=== PATIENT | female | born 1940 | race Caucasian/White ===

== ENCOUNTER → 2016-05-03 | Outpatient (CLI) | payer MEDICARE, BC ==
[~2016-05-03] MED LIST: ALPR-240 PO; HYDR-4078 PO; HYDR25TA PO; METO25TA6 PO; ONDA4TAB7 PO; PANT40TA32 PO; PRAM0.122 PO; SALINE FLUSH 10ml SYRINGE ONE; SINCALIDE 5 MCG/VIAL IJ ONE; SODIUM CHLORIDE (Bacteriostatic) 30ml VIAL ONE; TEMA15CA5 PO; TIZA4TAB4 PO; TRAZ-173 PO
--- NOTE | 2016-05-03 13:05 | DI ---
EXAM: [place]OB[place] [facility] [place]ORY: ITS.REASON: R11.10 VOMITING; R10.819 ABD TENDERNESS COMPARISON: None available. TECHNIQUE: After administration of approximately 6.6 mCi Tc99m Choletec, sequential anterior images of the abdomen were obtained. After visualization of the gallbladder, a region of interest was drawn around the gallbladder and approximately 1.5 mcg CCK was administered with sequential anterior images of the abdomen obtained. A time-activity curve was plotted and a gallbladder ejection fraction was calculated. Normal ejection fractions are estimated to be approximately greater than 35%. FINDINGS: The gallbladder is visualized within 10 minutes, and thus, there is no evidence for cystic duct obstruction. The small bowel is also visualized, and thus, no evidence for common bile duct obstruction is identified. The gall bladder ejection fraction is 92%, which is normal. IMPRESSION: 1. No evidence for cystic duct or CBD obstruction. 2. The gallbladder ejection fraction is 92%, which is normal. .
--- NOTE | 2016-05-03 17:13 | DI ---
EXAM: US GALLBLADDER LOCATION OF DICTATION: [facility] [place] COMPARISON: None available. HISTORY: ITS.REASON: R11.10 VOMITING; R10.819 ABD TENDERNESS right upper quadrant pain for 10 months. Nausea. Weight loss. Weakness. FINDINGS: PANCREAS: Not well visualized due to overlying bowel gas. AORTA/IVC: Unremarkable. No evidence for aneurysm. LIVER: Unremarkable. Normal in echotexture, size, and appearance. No intrahepatic ductal dilatation. No lesions are seen. The main portal vein has normal color Doppler flow and direction.14.7 cm in length. GALLBLADDER: Unremarkable. No evidence for gallstones, gallbladder wall thickening, or pericholecystic fluid. CBD: Unremarkable. Normal in caliber. No intra or extrahepatic ductal dilatation. Normal for age. 3.6 mm. RIGHT KIDNEY: Unremarkable. Normal in echotexture, size, appearance, and color Doppler flow without hydronephrosis. 10.3 x 3.8 x 4.3 cm. COMMENTS: None. IMPRESSION: Unremarkable exam without evidence for cholelithiasis or other signs of acute or chronic cholecystitis. .
== END ==
LOC: IMA 07:24
PROVIDERS: ATTEND Family Medicine
DX: R11.10 Vomiting, unspecified (principal); R10.819 Abdominal tenderness, unspecified site
CPT/HCPCS: 76705; 78227; A9537; J2805

== ENCOUNTER 2016-06-24 21:37 | Emergency (ER) | payer MEDICARE, BC ==
[~2016-06-24] VITALS: Ht 162.6 cm; Wt 77.5 kg
[2016-06-24 21:37] VITALS: Ht 162.6 cm; Wt 77.5 kg
[~2016-06-24 21:37] MED LIST changes: -SALINE FLUSH 10ml SYRINGE ONE; -SINCALIDE 5 MCG/VIAL IJ ONE; -SODIUM CHLORIDE (Bacteriostatic) 30ml VIAL ONE
--- OUTSIDE RECORDS SUMMARY | 2016-06-24 21:41 | XMS REPORT | Continuity of Care Document ---
Author Author [facility] Organization [facility] Address Unknown Phone Unavailable Support Name Relationship Address Phone AMNA MANJARREZ MD Caregiver [address] [place] [address] Unavailable JANIS RODRIGUEZ DO Caregiver [address] [place] [address] Unavailable CYNDI ARIAS Next Of Kin [address] [place] [address] C Insurance Providers Guarantor Stella Diaz Address [address] [place] [address] Email DENIED/NO TO PT [facility] Policy Number [id number] Subscriber's Name Stella Diaz Relationship 18 Self Group Number [id number] Effective Date 08 Payer Medicare Policy Number [id number] Subscriber's Name Stella Diaz Relationship 18 Self Effective Date 06 Advance Directives Directive Response Recorded Date/Time Advanced Directives Type None 01/10/16 11:20am Chief Complaint and Reason for Visit Chief Complaint Nausea,Vomiting,Diarrhea Reason for Visit Nausea Dehydration Problems Active Problems Medical Problem Onset Date Status Altered mental status 02/27/2014 Acute Confusion Unknown Acute Hypotension Unknown Acute Minor head injury without loss of consciousness Unknown Acute Minor head injury without loss of consciousness Unknown Acute Non-cardiac chest pain Unknown Acute Renal insufficiency Unknown Acute Scalp laceration Unknown Acute Weakness Unknown Acute Past Problems Medical Problem Onset Date Dehydration Unknown Dehydration Unknown Gastroenteritis Unknown Nausea Unknown Volume depletion Unknown Medications Current Home Medications Medication Dose Units Route Directions Days Qty Instructions Start Date Alprazolam 0.25 Mg Tablet 0.25 Mg Oral Three Times A Day as needed for Anxiety 04/03/12 Hydrochlorothiazide 25 Mg Tablet 25 Mg Oral Give With Breakfast 07/20/15 Hydrocodone/Acetaminophen (Melvin 10-325 Tablet) 1 Each Tablet 1 Tab Oral Four Times Daily as needed for Pain 07/20/15 Metoprolol Tartrate 25 Mg Tablet 50 Mg Oral Every Morning Metoprolol Tartrate 25 Mg Tablet 25 Mg Oral Bedtime Take 1 tab, by mouth, one time a day (with breakfast). 01/10/16 Ondansetron (Zofran Odt) 4 Mg Tab.rapdis 4 Mg Oral Q6h/0300,0900,1500,2100 for Nausea 30 Tablet Oral disintegrating tablet 01/10/16 Pantoprazole Sodium (Protonix) 40 Mg Tablet.dr 40 Mg Oral Daily 04/03/12 Pramipexole Di-Hcl (Mirapex) 0.125 Mg Tablet 0.25-0.375 Mg Oral Bedtime 05/17/15 Temazepam (Restoril) 15 Mg Capsule 15-30 Mg Oral Bedtime 07/20/15 Tizanidine Hcl 4 Mg Tablet 4 Mg Oral Four Times Daily as needed for Muscle Spasm 11/24/13 Trazodone Hcl 100 Mg Tablet 100 Mg Oral Bedtime 06/03/14 Past Home Medications Medication Directions Ordered Status Amitriptyline Hcl 100 Mg Tablet, 100 Mg Oral Bedtime 12/24/10 Discontinued Amitriptyline Hcl 25 Mg Tablet, 25 Mg Oral As Needed 12/24/10 Discontinued Amitriptyline Hcl 25 Mg Tablet, 25 Mg Oral Four Times Daily 10/14/10 Discontinued Butalb/Acetaminophen/Caffeine (Fioricet 50/325/40) 1 Tab Tablet, 1 Tab Oral As Needed 12/24/10 Discontinued Calcium Carbonate/Vitamin D3 (Calcium + D 600 Mg Tablet) 1 Tab Tablet, 2 Tab Oral Daily 12/24/10 Discontinued Cyclobenzaprine Hcl 10 Mg Tablet, 10 Mg Oral Three Times A Day 12/24/10 Discontinued Cyclobenzaprine Hcl (Flexeril) 10 Mg Tablet, 10 Mg Oral Three Times A Day 14/01 Discontinued Doxepin Hcl 150 Mg Capsule, 150 Mg Oral Daily 10/30/10 Discontinued Doxepin Hcl 150 Mg Capsule, 150 Mg Oral Daily 09/21/09 Discontinued Felctor Pain Patch , 1 Patch Transderm Twice A Day 12/24/10 Discontinued Fish Oil/[place]-3 Fatty Acids (Fish Oil 1,000 Mg Capsule) 1 Cap Capsule, 2 Cap Oral Daily 12/24/10 Discontinued Fluoxetine Hcl (Prozac) 40 Mg Capsule, 40 Mg Oral Daily 04/03/12 Discontinued Fluoxetine Hcl (Prozac) 40 Mg Capsule, 40 Mg Oral Daily 12/20/11 Discontinued Fluoxetine Hcl (Prozac) 40 Mg Capsule, 40 Mg Oral Daily 09/21/09 Discontinued Fluoxetine Hcl (Prozac) 40 Mg Capsule, 40 Mg Oral Daily 10/30/10 Discontinued Fluticasone Propionate (Fluticasone Prop 50 Mcg/Actuation Nasal [place]) 120 [place]/16 G [place], 2 SprayNasal Daily 11/24/13 Discontinued Gabapentin (Neurontin) 300 Mg Capsule, 300 Mg Oral Three Times A Day Discontinued Gabapentin 300 Mg Capsule, 300 Mg Oral Three Times A Day 10/30/10 Discontinued Lisinopril/Hydrochlorothiazide (Lisinopril-Hctz 10-12.5 Mg Tab) 1 Each Tablet, 1 Tab Oral Twice A Day 11/24/13 Discontinued Lisinopril/Hydrochlorothiazide (Lisinopril-Hctz 10-12.5 Tab) 1 Tab Tablet, 1 Tab Oral Daily 10/30/10 Discontinued Lisinopril/Hydrochlorothiazide (Lisinopril-Hctz 10-12.5 Tablet) 1 Tab Tablet, 1 Tab Oral Daily 09/21/09 Discontinued Loratadine (Claritin) 10 Mg/Tab Tab.rapdis, 10 Mg Oral Daily 10/30/10 Discontinued Magnesium 200 Mg Tablet, 800 Mg Oral Daily 12/24/10 Discontinued Nebivolol Hcl (Bystolic) 5 Mg Tablet, 5 Mg Oral Daily 12/24/10 Discontinued Nitroglycerin (Nitroquick) 0.4 Mg Tablet, 0.4 Mg Sublingual As Needed Discontinued Omeprazole (Prilosec) 20 Mg Capsule.dr, 20 Mg Oral Daily 10/14/08 Discontinued Oxycodone Hcl/Acetaminophen (Percocet 7.5-500 Mg Tablet) 1 Tab Tablet, 1 Tab Oral As Needed 12/20/11 Discontinued Pantoprazole Sodium (Protonix) 40 Mg Tablet.dr, 40 Mg Oral Daily 12/24/10 Discontinued Pantoprazole Sodium (Protonix) 40 Mg Tablet.dr, 40 Mg Oral Daily 10/30/10 Discontinued Pantoprazole Sodium (Protonix) 40 Mg Tablet.dr, 40 Mg Oral Daily 09/21/09 Discontinued Percocet , 06/26/08 Discontinued Pramipexole Di-Hcl (Mirapex) 0.25 Mg Tablet, 0.25 Mg Oral Twice A Day Discontinued Pregabalin (Lyrica) 100 Mg Capsule, 1 Cap Oral Three Times A Day 04/03/12 Discontinued Pregabalin (Lyrica) 100 Mg Capsule, 100 Mg Oral Four Times Daily 12/24/10 Discontinued Pregabalin (Lyrica) 50 Mg Capsule, 50 Mg Oral Daily 10/30/10 Discontinued Pregabalin (Lyrica) 50 Mg Capsule, 50 Mg Oral Three Times A Day 10/14/10 Discontinued Propoxyphene/Acetaminophen (Darvocet N 100) 1 Udtab Tablet, 1 Udtab Oral As Needed 09/21/09 Discontinued Resvinatrol , 2 Tab Oral Daily 12/24/10 Discontinued Ropinirole Hcl (Requip) 2 Mg Tablet, 2 Mg Oral Daily 10/30/10 Discontinued Ropinirole Hcl (Requip) 2 Mg Tablet, 2 Mg Oral Bedtime 10/14/10 Discontinued Ropinirole Hcl (Requip) 1 Mg Tablet, 1 Mg Oral Bedtime 09/21/09 Discontinued Tramadol Hcl/Acetaminophen (Tramadol Hcl-Acetaminophen Tab) 1 Tab Tablet, 1 Tab Oral As Needed 10/14/08 Discontinued Triamcinolone Acetonide (Nasacort) 10 Gm Aer.w.adap, 10 Gm Nasal Daily Discontinued Zolpidem Tartrate (Ambien) 10 Mg Tablet, 10 Mg Oral Bedtime 10/30/10 Discontinued Zolpidem Tartrate (Ambien) 10 Mg Tablet, 10 Mg Oral Daily 09/21/09 Discontinued Social History Social History Problem Response Recorded Date/Time Onset Date Status Hx Substance Use No 01/10/2016 11:40am Not Applicable Not Applicable Hx Alcohol Use No 01/10/2016 11:40am Not Applicable Not Applicable Has the pt used tobacco in the last 12 months No 11/20/2015 12:39pm Not Applicable Not Applicable Tobacco Usage none 07/20/2015 1:04pm Not Applicable Not Applicable Query Response Start Date Stop Date Smoking Status Never smoker Hospital Discharge Instructions No hospital discharge instructions. Plan of Care Discharge Date 01/10/16 2:55pm Disposition 01 DISCHARGED HOME, SELF-CARE Condition at Discharge Improved Instructions/Education Provided DI for Dehydration -- Adult DI for Nausea -- Adult Prescriptions See Medication Section Referrals AMNA MANJARREZ MD Order Date: 2 Days Address: [address] [place] [address] Note: Care Plan and Goals Physician Care Plan Problem: 1. Nausea 2. Dehydation Goal: 1. Follow up with primary care provider in 1-2 days 2. Continue Home Medications 3. Return to the ER as needed Instructions: 1. Take medications and follow care plan as discussed/written Functional Status No functional status results. Allergies, Adverse Reactions, Alerts Allergen Type Severity Reaction Status Last Updated rosuvastatin calcium Allergy Intermediate "MADE ME SICK" Active 11/17/15 Penicillin Allergy Mild RASH Active 11/17/15 Iodine Adverse Reaction Unknown RASH, Active 11/17/15 Lorazepam Allergy Unknown Active 11/17/15 Sulfamethoxazole Allergy Unknown VOMITING Active 11/17/15 Trimethoprim Allergy Unknown VOMITING Active 11/17/15 Immunizations Query Response on File Recorded Date/Time Hx Influenza Vaccination Y 11/20/15 11/20/15 12:39pm Hx Pneumococcal Vaccination Y Oct11/20/15 12:39pm Hx Influenza Vaccination Y 11/20/15 11/20/15 12:39pm Influenza Vaccine Hx 11/20/15 01/10/16 11:40am Vital Signs Acute Vital Signs Vital Response Date/Time Temperature (Fahrenheit) 97.1 deg F (96.8 - 99.1) 01/26/2016 11:49am Temperature (Calculated Celsius) 36.82755 degrees C (36.0 - 37.3) 01/26/2016 11:49am Pulse Rate (adult) 63 bpm (60 - 100) 01/26/2016 11:49am Respiratory Rate 16 breaths/min (10 - 20) 01/26/2016 11:49am O2 Sat by Pulse Oximetry 94 % (90 - 100) 01/26/2016 11:49am Oxygen Delivery Method Room Air 01/26/2016 11:49am Blood Pressure 136/65 mm Hg 01/26/2016 11:49am Blood Pressure Source Automatic Cuff 01/26/2016 11:49am Height (Feet) 5 feet 01/10/2016 11:20am Height (Inches) 4.00 inches 01/10/2016 11:20am Weight (Kilograms) 76.800 kg 01/10/2016 11:20am Body Mass Index (BMI) 29.0 01/10/2016 11:20am Results Laboratory Results Test Name Result Units Flags Reference Collection Date/Time Result Date/ Time Comments White Blood Count 4.7 T/MM3 4.5-11.0 01/26/2016 11:45am 01/26/2016 12: 17pm Red Blood Count 4.07 M/MM3 4.00-5.20 01/26/2016 11:45am 01/26/2016 12: 17pm Hemoglobin 10.8 GM/DL L 12-16 01/26/2016 11:45am 01/26/2016 12:17pm Hematocrit 36.3 % 36-46 01/26/2016 11:45am 01/26/2016 12:17pm Mean Corpuscular Volume 89.2 UM3 80-100 01/26/2016 11:45am 01/26/2016 12:17pm Mean Corpuscular Hemoglobin 26.5 UUG 26-34 01/26/2016 11:45am 2015 12:17pm Mean Corpuscular Hemoglobin Concent 29.8 GM/DL L 31-37 01/26/2016 11: 45am 01/26/2016 12:17pm RDW Standard Deviation 47.8 FL 36.9-50.2 01/26/2016 11:45am 01/26/2016 12:17pm Platelet Count 197 T/MM3 130-400 01/26/2016 11:45am 01/26/2016 12:17pm Mean Platelet Volume 11.3 UM3 9.4-12.4 01/26/2016 11:45am 01/26/2016 12 :17pm Neutrophils % (Manual) 50.0 % 33-66 01/26/2016 11:45am 01/26/2016 12: 32pm Band Neutrophils % 1.0 % 0-6 12/29/2015 11:33am 12/29/2015 11:52am Lymphocytes % (Manual) 36.0 % 23-45 01/26/2016 11:45am 01/26/2016 12: 32pm Monocytes % (Manual) 7.0 % 0-9.0 01/26/2016 11:45am 01/26/2016 12:32pm Eosinophils % (Manual) 7.0 % H 0-4 01/26/2016 11:45am 01/26/2016 12: 32pm Basophils % (Manual) 1.0 % 0-2 12/29/2015 11:33am 12/29/2015 11:52am Reactive Lymphocytes % 11.0 % H 0-0 12/29/2015 11:33am 12/29/2015 11: 52am Band Neutrophils # 0.0 T/MM3 12/29/2015 11:33am 12/29/2015 11:52am Absolute Neutrophils (Manual) 2.4 T/MM3 1.8-7.7 01/26/2016 11:45am 10/2015 12:32pm Lymphocytes # (Manual) 1.7 T/MM3 1-4.8 01/26/2016 11:45am 01/26/2016 12 :32pm Monocytes # (Manual) 0.3 T/MM3 0-0.8 01/26/2016 11:45am 01/26/2016 12: 32pm Eosinophils # (Manual) 0.3 T/MM3 0-0.5 01/26/2016 11:45am 01/26/2016 12 :32pm Basophils # (Manual) 0.0 T/MM3 0-0.2 12/29/2015 11:33am 12/29/2015 11: 52am Reactive Lymphocytes # 0.5 T/MM3 H 0-0 12/29/2015 11:33am 12/29/2015 11: 52am Red Cell Morphology Comment ABNORMAL 01/26/2016 11:45am 01/26/2016 12:32pm Anisocytosis 1+ 01/26/2016 11:45am 01/26/2016 12:32pm Poikilocytosis 1+ 01/26/2016 11:45am 01/26/2016 12:32pm Hypochromasia 1+ 10/27/2015 9:49am 10/27/2015 10:58am Ovalocytes 1+ 01/26/2016 11:45am 01/26/2016 12:32pm Stomatocytes 1+ 01/26/2016 11:45am 01/26/2016 12:32pm Icterus Index < 2 0-7 01/26/2016 11:45am 01/26/2016 12:28pm Chemistry Specimen Hemolysis 16 0-25 01/26/2016 11:45am 01/26/2016 12 :28pm 0-25: Specimen Exhibited No Hemolysis. Turbidity < 20 0-20 01/26/2016 11:45am 01/26/2016 12:28pm Sodium Level 146 MEQ/L H 134-144 01/26/2016 11:45am 01/26/2016 12:28pm Potassium Level 4.1 MEQ/L 3.6-5 01/26/2016 11:45am 01/26/2016 12:28pm Chloride Level 103 MEQ/L 98-107 01/26/2016 11:45am 01/26/2016 12:28pm Carbon Dioxide Level 30 MEQ/L 22-30 01/26/2016 11:45am 01/26/2016 12: 28pm Anion Gap 13 MEQ/L 5-15 01/26/2016 11:45am 01/26/2016 12:28pm Blood Urea Nitrogen 19.0 MG/DL H 7-17 01/26/2016 11:45am 01/26/2016 12: 28pm Creatinine 0.9 MG/DL 0.7-1.2 01/26/2016 11:45am 01/26/2016 12:28pm BUN/Creatinine Ratio 21 RATIO 6-26 01/26/2016 11:45am 01/26/2016 12: 28pm Glomerular Filtration Rate Calc 61 01/26/2016 11:45am 01/26/2016 12 :28pm Glucose Level 92 MG/DL 65-110 01/26/2016 11:45am 01/26/2016 12:28pm Calculated Osmolality 283 MOSM/KG H 261-280 01/26/2016 11:45am 2015 12:28pm Calcium Level 9.8 MG/DL 8.4-10.2 01/26/2016 11:45am 01/26/2016 12:28pm Total Bilirubin 0.30 MG/DL 0.20-1.30 01/26/2016 11:45am 01/26/2016 12: 28pm Alkaline Phosphatase 76 U/L 38-126 01/26/2016 11:45am 01/26/2016 12: 28pm Total Protein 7.1 G/DL 6.3-8.2 01/26/2016 11:45am 01/26/2016 12:28pm Albumin 3.9 G/DL 3.5-5.0 01/26/2016 11:45am 01/26/2016 12:28pm Globulin 3.2 G/DL 2.4-3.6 01/26/2016 11:45am 01/26/2016 12:28pm Albumin/Globulin Ratio 1.2 RATIO 1.1-2.2 01/26/2016 11:45am 01/26/2016 12:28pm Aspartate Amino Transf (AST/SGOT) 20 U/L 14-36 01/26/2016 11:45am 01/25 12:28pm Alanine Aminotransferase (ALT/SGPT) 26 U/L 9-52 01/26/2016 11:45am 10/2015 12:28pm C-Reactive Protein < 5.0 MG/L 0-9 01/26/2016 11:45am 01/26/2016 12: 28pm Erythrocyte Sedimentation Rate 8 mm/h 0-23 01/26/2016 11:45am 2015 11:06pm Sedimentation Rate performed at [facility], [address] [place] [address] Supervisor [employer] Magda Espinoza DO Neutrophils (%) (Auto) 48.4 % 33-66 01/10/2016 12:01pm 01/10/2016 12: 16pm Lymphocytes (%) (Auto) 39.6 % 23-45 01/10/2016 12:01pm 01/10/2016 12: 16pm Monocytes (%) (Auto) 9.4 % H 0-9.0 01/10/2016 12:01pm 01/10/2016 12: 16pm Eosinophils (%) (Auto) 1.9 % 0-4 01/10/2016 12:01pm 01/10/2016 12:16pm Basophils (%) (Auto) 0.4 % 0-2 01/10/2016 12:01pm 01/10/2016 12:16pm Immature Granulocyte % (Auto) 0.3 % 0.0-0.5 01/10/2016 12:01pm 2015 12:16pm Absolute Neutrophils (auto) 3.5 T/MM3 1.8-7.7 01/10/2016 12:01pm 2015 12:16pm Absolute Lymphocytes (auto) 2.9 T/MM3 1-4.8 01/10/2016 12:01pm 2015 12:16pm Absolute Monocytes (auto) 0.7 T/MM3 0-0.8 01/10/2016 12:01pm 2015 12:16pm Absolute Eosinophils (auto) 0.1 T/MM3 0-0.5 01/10/2016 12:01pm 2015 12:16pm Absolute Basophils (auto) 0.0 T/MM3 0-0.2 01/10/2016 12:01pm 2015 12:16pm Absolute Immature Granulocyte (auto 0.02 T/MM3 0.00-0.03 01/10/2016 12: 01pm 01/10/2016 12:16pm Lipase 70 U/L 23-300 01/10/2016 12:01pm 01/10/2016 12:24pm Urine Collection Type [place]-MIDSTREAM 01/10/2016 2:22pm 2015 2:29pm Urine Color YELLOW YELLOW 01/10/2016 2:22pm 01/10/2016 2:29pm Urine Turbidity CLEAR CLEAR 01/10/2016 2:pm 01/10/2016 2:29pm Urine Specific Oscar 1.010 L 1.015-1.025 01/10/2016 2:22pm 2015 2:29pm Urine pH 5.5 5.0-8.0 01/10/2016 2:22pm 01/10/2016 2:29pm Urine Leukocyte Esterase NEGATIVE NEGATIVE 01/10/2016 2:pm 2015 2:29pm Urine Nitrite NEGATIVE NEGATIVE 01/10/2016 2:pm 01/10/2016 2:29pm Urine Protein NEGATIVE NEGATIVE 01/10/2016 2:pm 01/10/2016 2:29pm Urine Glucose (UA) NEGATIVE NEGATIVE 01/10/2016 2:pm 01/10/2016 2: 29pm Urine Ketones 1+ A NEGATIVE 01/10/2016 2:pm 01/10/2016 2:29pm Urine Urobilinogen 0.2 EU/DL NORMAL 01/10/2016 2:pm 01/10/2016 2: 29pm Urine Bilirubin NEGATIVE NEGATIVE 01/10/2016 2:pm 01/10/2016 2: 29pm Urine Blood NEGATIVE NEGATIVE 01/10/2016 2:pm 01/10/2016 2:29pm Urinalysis Comment MICROSCOPIC NOT IND. 01/10/2016 2:22pm 2015 2:29pm Name: STELLA DIAZ Unit #: [id number] : 1940 Sex: F Admit Date: Loc / Svc: ED Discharge Date: 01/10/16 DIAGNOSTIC IMAGING REPORT Report #: [id number] [facility] IVETTE Teresa Indication: ITS.REASON: nausea PROCEDURE: PA view of the chest with supine and AP views of the abdomen Encounter: Initial Comparison: None FINDINGS: The lungs are clear. There is no abnormal airspace opacity, pleural effusion or pneumothorax identified. Right IJ Port-A-Cath noted. The heart size, pulmonary vasculature and mediastinum are within normal limits. There are very extensive operative changes seen throughout the abdomen. There is no free air on the upright view. The bowel gas pattern is nonobstructive and nonspecific. Spinal fusion of the lumbosacral spine. The bony structures are otherwise grossly unremarkable. IMPRESSION: 1. No acute cardiopulmonary abnormality. 2. No evidence of acute obstruction or free air. 3. Extensive operative changes of the abdomen. . Procedures Procedure Status Date Provider(s) ROUTINE VENIPUNCTURE Completed 11/20/15 ROUTINE VENIPUNCTURE Completed 11/20/15 X-RAY EXAM OF ABDOMEN Completed 11/20/15 METABOLIC PANEL TOTAL CA Completed 11/20/15 COMPREHEN METABOLIC PANEL Completed 11/20/15 URINALYSIS AUTO W/O SCOPE Completed 11/20/15 BL SMEAR W/DIFF WBC COUNT Completed 11/20/15 COMPLETE CBC AUTOMATED Completed 11/20/15 RBC SED RATE AUTOMATED Completed 11/20/15 HYDRATE IV INFUSION ADD-ON Completed 11/20/15 HYDRATE IV INFUSION ADD-ON Completed 11/20/15 HYDRATE IV INFUSION ADD-ON Completed 11/20/15 THER/PROPH/DIAG INJ IV PUSH Completed 11/20/15 TX/PRO/DX INJ NEW DRUG ADDON Completed 11/20/15 TX/PRO/DX INJ NEW DRUG ADDON Completed 11/20/15 TX/PRO/DX INJ SAME DRUG ORNAMENT SETTER Completed 11/20/15 TX/PRO/DX INJ SAME DRUG ORNAMENT SETTER Completed 11/20/15 [id number] ITEM OR SERVICE Completed 11/20/15 [id number] ITEM OR SERVICE Completed 11/20/15 [id number] ITEM OR SERVICE Completed 11/20/15 [id number] ITEM OR SERVICE Completed 11/20/15 [id number] ITEM OR SERVICE Completed 11/20/15 [id number] ITEM OR SERVICE Completed 11/20/15 [id number] ITEM OR SERVICE Completed 11/20/15 [id number] ITEM OR SERVICE Completed 11/20/15 [id number] ITEM OR SERVICE Completed 11/20/15 [id number] ITEM OR SERVICE Completed 11/20/15 [id number] ITEM OR SERVICE Completed 11/20/15147875"INJECTION, PANTOPRAZOLE SODIUM, PER VIAL" Completed 11/20/15996903"INJECTION, PANTOPRAZOLE SODIUM, PER VIAL" Completed 11/20/15985775"INJECTION, PANTOPRAZOLE SODIUM, PER VIAL" Completed 11/20/15941102"HOSPITAL OBSERVATION SERVICE, PER HOUR" Completed 11/20/15340111"HOSPITAL OBSERVATION SERVICE, PER HOUR" Completed 11/20/15361428"HOSPITAL OBSERVATION SERVICE, PER HOUR" Completed 11/20/15635751"HOSPITAL OBSERVATION SERVICE, PER HOUR" Completed 11/20/15 [id number] ADMISSION OF PATIENT FOR HOSPITAL OBSERVATION C Completed "INJECTION, HEPARIN SODIUM, (HEPARIN LOCK FLUSH), PER Completed 003"INJECTION, ONDANSETRON HYDROCHLORIDE, PER 1 MG" Completed 11/20/15235027"INJECTION, ONDANSETRON HYDROCHLORIDE, PER 1 MG" Completed 11/20/15395711"INJECTION, ONDANSETRON HYDROCHLORIDE, PER 1 MG" Completed 11/20/15939378"INJECTION, ONDANSETRON HYDROCHLORIDE, PER 1 MG" Completed 11/20/15"INJECTION, METOCLOPRAMIDE HCL, UP TO 10 MG" Completed 11/20/15 HT MUSCLE IMAGE SPECT MULT Completed 12/19/15 CARDIOVASCULAR STRESS TEST Completed 12/19/15"TECHNETIUM TC-99M TETROFOSMIN, DIAGNOSTIC, PER STUDY Completed LEXISCAN .4MG/5ML - REGADENOSON Completed 12/19/15 ROUTINE VENIPUNCTURE Completed 01/10/16 X-RAY EXAM SERIES ABDOMEN Completed 01/10/16 COMPREHEN METABOLIC PANEL Completed 01/10/16 URINALYSIS AUTO W/O SCOPE Completed 01/10/16 ASSAY OF LIPASE Completed 01/10/16 COMPLETE CBC W/AUTO DIFF WBC Completed 01/10/16 ELECTROCARDIOGRAM TRACING Completed 01/10/16 HYDRATE IV INFUSION ADD-ON Completed 01/10/16 THER/PROPH/DIAG INJ IV PUSH Completed 01/10/16 EMERGENCY DEPT VISIT Completed 01/10/16 [id number]"INJECTION, ONDANSETRON HYDROCHLORIDE, PER 1 MG" Completed 01/10/16 [id number]"INFUSION, NORMAL SALINE SOLUTION , 1000 CC" Completed 01/10/16 Encounters Encounter Location Arrival/Admit Date Discharge/Depart Date Attending Provider Discharged Recurring [facility] 01/26/16 10:00am 02/17/16 11: 11pm RICHIE CORBIN Departed Emergency Room [facility] 01/10/16 11:51am 01/10/16 2: 55pm JANIS RODRIGUEZ DO Registered Clinic [facility] 12/19/15 8:29am NELI NOYOLA MD Discharged Inpatient (obs) [facility] 11/20/15 12:18pm 11/22/15 6 :30pm AMNA MANJARREZ MD
--- OUTSIDE RECORDS SUMMARY | 2016-06-24 21:41 | XMS REPORT | Continuity of Care Document ---
Author Author [facility] Organization [facility] Address Unknown Phone Unavailable Support Name Relationship Address Phone AMNA MANJARREZ MD Caregiver [address] [place], [place] [id number] ÁLVARO PHILLIPS MD Caregiver [address] [place] [address] [place] [address] [phone] CYNDI ARIAS Next Of Kin [address] [place] [place], [place] [id number] Insurance Providers Payer Name Policy Number Subscriber Name Relationship Medicare [id number] Stella Diaz 19 Self [facility] [id number] Stella Diaz 18 Self Advance Directives Directive Response Recorded Date/Time Ordered Resuscitation Status Full Code, unverified 12/28/13 10:24am Resuscitation Documents on File Yes 12/28/13 9:55am Problems Medical Problems Problem Onset Date Status Non-cardiac chest pain Unknown Active Medications Medication Dose Route Sig Days/Qty Instructions Order Date Discontinued Date Status Zolpidem Tartrate 10 Mg PO DAILY 09/21/09 10/30/10 Discontinued Ropinirole Hcl 1 Mg PO BEDTIME 09/21/09 10/14/10 Discontinued Doxepin Hcl 150 Mg PO DAILY 09/21/09 10/14/10 Discontinued Lisinopril/Hydrochlorothiazide 1 Tab PO DAILY 09/21/09 10/14/10 Discontinued Fluoxetine Hcl 40 Mg PO DAILY 09/21/09 12/20/11 Discontinued Omeprazole 20 Mg PO DAILY 10/14/08 12/19/08 Discontinued Propoxyphene/Acetaminophen 1 Udtab PO NEEDED 09/21/09 10/14/10 Discontinued Gabapentin 300 Mg PO THREE TIMES A DAY 09/21/09 12/20/11 Discontinued [Percocet] 06/26/08 10/14/08 Discontinued Tramadol Hcl/Acetaminophen 1 Tab PO NEEDED 10/14/08 12/19/08 Discontinued Pantoprazole Sodium 40 Mg PO DAILY 09/21/09 10/14/10 Discontinued Triamcinolone Acetonide 10 Gm NS DAILY 09/21/09 10/14/10 Discontinued Amitriptyline Hcl 25 Mg PO FOUR TIMES DAILY 10/14/10 10/30/10 Discontinued Pregabalin 50 Mg PO THREE TIMES A DAY 10/14/10 10/30/10 Discontinued Ropinirole Hcl 2 Mg PO BEDTIME 10/14/10 10/30/10 Discontinued Cyclobenzaprine Hcl 10 Mg PO THREE TIMES A DAY 10/14/10 10/30/10 Discontinued Lisinopril/Hydrochlorothiazide 1 Tab PO DAILY 10/30/10 04/03/12 Discontinued Loratadine 10 Mg PO DAILY 10/30/10 12/24/10 Discontinued Pregabalin 50 Mg PO DAILY 10/30/10 01/26/11 Discontinued Pantoprazole Sodium 40 Mg PO DAILY 10/30/10 10/30/10 Discontinued Fluoxetine Hcl 40 Mg PO DAILY 10/30/10 10/30/10 Discontinued Doxepin Hcl 150 Mg PO DAILY 10/30/10 12/20/11 Discontinued Gabapentin 300 Mg PO THREE TIMES A DAY 10/30/10 10/30/10 Discontinued Ropinirole Hcl 2 Mg PO DAILY 10/30/10 12/20/11 Discontinued Zolpidem Tartrate 10 Mg PO BEDTIME 10/30/10 04/03/12 Discontinued [Resvinatrol] 2 Tab PO DAILY 12/24/10 12/20/11 Discontinued Pantoprazole Sodium 40 Mg PO DAILY 12/24/10 04/03/12 Discontinued Nitroglycerin 0.4 Mg SL NEEDED 12/24/10 04/03/12 Discontinued Magnesium 800 Mg PO DAILY 12/24/10 12/20/11 Discontinued [Felctor Pain Patch] 1 Patch TD TWICE A DAY 12/24/10 12/20/11 Discontinued Fish Oil/Nixon-3 Fatty Acids 2 Cap PO DAILY 12/24/10 12/20/11 Discontinued Butalb/Acetaminophen/Caffeine 1 Tab PO NEEDED 12/24/10 04/03/12 Discontinued Cyclobenzaprine Hcl 10 Mg PO THREE TIMES A DAY 12/24/10 12/20/11 Discontinued Calcium Carbonate/Vitamin D3 2 Tab PO DAILY 12/24/10 12/20/11 Discontinued Nebivolol Hcl 5 Mg PO DAILY 12/24/10 12/20/11 Discontinued Amitriptyline Hcl 100 Mg PO BEDTIME 12/24/10 12/20/11 Discontinued Amitriptyline Hcl 25 Mg PO NEEDED 12/24/10 01/26/11 Discontinued Pregabalin 100 Mg PO FOUR TIMES DAILY 12/24/10 04/03/12 Discontinued Pramipexole Di-Hcl 0.25 Mg PO TWICE A DAY 12/20/11 04/03/12 Discontinued Fluoxetine Hcl 40 Mg PO DAILY 12/20/11 04/03/12 Discontinued Oxycodone Hcl/Acetaminophen 1 Tab PO NEEDED 12/20/11 04/03/12 Discontinued Pregabalin 1 Cap PO TWICE A DAY 120 Qty 04/03/12 Active Alprazolam 1 Tab PO THREE TIMES A DAY 04/03/12 Active Fluoxetine HCl 40 Mg PO DAILY 04/03/12 11/25/13 Discontinued Pantoprazole Sodium 1 Tab PO DAILY 90 Qty 04/03/12 Active Pramipexole Di-Hcl 0.125 Tab PO BEDTIME 04/03/12 Active Nitroglycerin 0.4 Mg SL EVERY 10 MINUTES PRN TAKE 1 TABLET UNDER THE TONGUE NEEDED FOR CHEST DISCOMFORT. 04/03/12 Active Zolpidem Tartrate 10 Mg PO BEDTIME 04/03/12 Active Lisinopril/Hydrochlorothiazide 1 Tab PO DAILY 180 Qty 11/24/13 Active Calcium Carbonate/Vitamin D3 2 Tab PO DAILY 11/24/13 Active Fluticasone Propionate 2 [place] NS DAILY 16 Qty 11/24/13 Active Lutein 20 Mg PO DAILY 11/24/13 Active Metoprolol Tartrate 25 Mg PO TWICE A DAY 60 Qty 11/24/13 Active Tizanidine HCl 4 Mg PO NEEDED 90 Qty 11/24/13 Active Ca Cmb No.1/Vit D3/B-6/FA/B12 1 Tab PO DAILY 11/24/13 Active Fluoxetine HCl 2 Cap PO DAILY 12/29/13 Active Social History Social History Problem Response Recorded Date/Time Smoking Status Never smoker 12/28/2013 9:56am Chewing Tobacco Status No 12/28/2013 9:56am Hx Substance Use No 12/28/2013 9:56am Hx Alcohol Use No 12/28/2013 9:56am Has the pt used tobacco in the last 12 months No 12/28/2013 9:56am Query Response Start Date Stop Date Smoking Status Never smoker Hospital Discharge Instructions No hospital discharge instructions. Plan of Care No plan of care. Functional Status No functional status results. Allergies, Adverse Reactions, Alerts Allergen Type Severity Reaction Status Last Updated rosuvastatin calcium Allergy Intermediate "MADE ME SICK" Active 04/13/13 Penicillin Allergy Mild RASH Active 04/13/13 Lorazepam Allergy Unknown Active 04/14/13 Prednisone Adverse Reaction Mild "Makes me crazy" Active 04/13/13 Immunizations Name Given Type Hx Influenza Vaccination Y 10/2013 Historical Hx Pneumococcal Vaccination Y Oct Historical Hx Influenza Vaccination Y 10/2013 Historical Vital Signs Acute Vital Signs Vital Response Date/Time Temperature (Fahrenheit) 97.3 deg F (96.8 - 99.1) Temperature (Calculated Celsius) 36.29604 degrees C (36.0 - 37.3) Temperature Source Temporal Pulse Rate (adult) 60 bpm (60 - 100) Respiratory Rate 18 breaths/min (10 - 20) O2 Sat by Pulse Oximetry 96 % (90 - 100) Oxygen Delivery Method Room Air Blood Pressure 123/60 mm Hg Blood Pressure Source Automatic Cuff Height 5 ft 3 in Weight 185 lb Body Mass Index 32.0 kg/m^2 Results Test Source Date Result Interp. Ref. Range Comments Absolute Reticulocyte Count December 25, 2010 2:10am 0.0533 T/MM3 N 0.0300-0.0900 COMMENT OK TO USE BLOOD IN THE LAB Activated Partial Thromboplast Time April 13, 2013 10:35pm 36.9 SEC H 24-36 Alanine Aminotransferase (ALT/SGPT) December 29, 2013 8:24am 27 U/L N 9- 52 COMMENT PRE-OP WILL CALL Albumin December 29, 2013 8:24am 4.2 G/DL N 3.5-5.0 COMMENT PRE-OP WILL CALL Albumin/Globulin Ratio December 29, 2013 8:24am 1.2 RATIO N 1.1-2.2 COMMENT PRE-OP WILL CALL Alkaline Phosphatase December 29, 2013 8:24am 117 U/L N 38-126 COMMENT PRE-OP WILL CALL Amylase Level January 26, 2011 9:05am 82 U/L N 30-110 Anion Gap December 29, 2013 8:24am 10 MEQ/L N 5-15 COMMENT PRE-OP WILL CALL Arterial Blood Base Excess January 29, 2011 11:50am 10.6 MMOL/L H -2.0- 2.0 Arterial Blood HCO3 January 29, 2011 11:50am 35 MEQ/L H 22-26 Arterial Blood Oxygen Content January 29, 2011 11:50am 4 - Arterial Blood Oxygen Saturation January 29, 2011 11:50am 98.0 % N 95.0 -98.0 Arterial Blood Partial Pressure CO2 January 29, 2011 11:50am 45 MMHG N 34-45 Arterial Blood Total CO2 January 29, 2011 11:50am 36.5 MEQ/L H 23-27 Arterial Blood pH January 29, 2011 11:50am 7.500 H 7.350-7.450 Arterial Blood pO2 at Patient Temp January 29, 2011 11:50am 95 MMHG N 80-100 Aspartate Amino Transf (AST/SGOT) December 29, 2013 8:24am 23 U/L N 14- 36 COMMENT PRE-OP WILL CALL B-Type Natriuretic Peptide January 26, 2011 7:46am < 15 PG/ML L 15-100 BUN/Creatinine Ratio December 29, 2013 8:24am 19 RATIO N 6-26 COMMENT PRE-OP WILL CALL Band Neutrophils # January 29, 2011 1:05am 0.1 T/MM3 - COMMENT FROM BLOOD IN LAB. RUN NOW PLEASE Band Neutrophils % January 29, 2011 1:05am 1.0 % N 0-6 COMMENT FROM BLOOD IN LAB. RUN NOW PLEASE Basophils # (Auto) December 29, 2013 8:24am 0.1 T/MM3 N 0-0.2 COMMENT PRE-OP WILL CALL Basophils # (Manual) June 26, 2008 4:50pm 0.2 T/MM3 N 0-0.2 Basophils % (Manual) June 26, 2008 4:50pm 2.0 % N 0-2 Basophils (%) (Auto) December 29, 2013 8:24am 1.2 % N 0-2 COMMENT PRE- OP WILL CALL Blood Urea Nitrogen December 29, 2013 8:24am 26.0 MG/DL H 7-17 COMMENT PRE-OP WILL CALL Calcium Level December 29, 2013 8:24am 9.9 MG/DL N 8.4-10.2 COMMENT PRE -OP WILL CALL Calculated Osmolality December 29, 2013 8:24am 280 MOSM/KG N 261-280 COMMENT PRE-OP WILL CALL Carbon Dioxide Level December 29, 2013 8:24am 23 MEQ/L N 22-30 COMMENT PRE-OP WILL CALL Chemistry Specimen Hemolysis December 29, 2013 8:24am < 15 0-25 0-25 : No Hemolysis.26-70: Slight Hemolysis - can falsely elevate K and Urine Protein. 71-285: Moderate Hemolysis - can falsely elevate K, Troponin I, CA 19-9, PTH, CSF GLucose, and Urine Protein, and can falsely decrease Phenytoin. 286-999: Gross Hemolysis - can falsely elevate K, Troponin I, CA 19-9, PTH, CSF Glucose, and Urine Protine, and can falsely decrease Phenytoin. Recommend specimen recollection. Chloride Level December 29, 2013 8:24am 110 MEQ/L H 98-107 COMMENT PRE- OP WILL CALL Cholesterol Level April 16, 2013 5:30am 264 MG/DL H 132-199 Cholesterol/HDL Ratio April 16, 2013 5:30am 4.8 RATIO H 0-4.0 Conjugated Bilirubin December 24, 2010 2:05pm 0.00 MG/DL N 0.00-0.30 Creatine Kinase MB April 15, 2013 1:40pm < 0.2 NG/ML 0-3.4 Creatinine December 29, 2013 8:24am 1.4 MG/DL H 0.7-1.2 COMMENT PRE-OP WILL CALL D-Dimer April 13, 2013 10:35pm 741 NG/ML H 0-400 <400 NG/ML= PRESUMPTIVE NEGATIVE FOR PE OR DVT>400 NG/ML=ADDITIONAL EVALUATION FOR PE OR DVT RECOMMENDED Eosinophils # (Auto) December 29, 2013 8:24am 1.8 T/MM3 H 0-0.5 COMMENT PRE-OP WILL CALL Eosinophils # (Manual) February 01, 2011 5:15am 0.6 T/MM3 H 0-0.5 Eosinophils % (Manual) February 01, 2011 5:15am 7.0 % H 0-4 Eosinophils (%) (Auto) December 29, 2013 8:24am 22.5 % H 0-4 COMMENT PRE-OP WILL CALL Erythrocyte Sedimentation Rate April 15, 2013 1:40pm 27 MM/HR H 0-20 Ferritin December 24, 2010 8:06pm 8.66 NG/ML L 11-264 Globulin December 29, 2013 8:24am 3.5 G/DL N 2.4-3.6 COMMENT PRE-OP WILL CALL Glomerular Filtration Rate Calc December 29, 2013 8:24am 37 - COMMENT PRE-OP WILL CALL Glucose Level December 29, 2013 8:24am 102 MG/DL N 65-110 COMMENT PRE- OP WILL CALL HDL Cholesterol Direct April 16, 2013 5:30am 55 MG/DL N 40-60 Hematocrit December 29, 2013 8:24am 36.0 % N 36-46 COMMENT PRE-OP WILL CALL Hemoglobin December 29, 2013 8:24am 11.0 GM/DL L 12-16 COMMENT PRE-OP WILL CALL Icterus Index December 29, 2013 8:24am < 2 0-7 COMMENT PRE-OP WILL CALL Immature Granulocyte # (Auto) December 29, 2013 8:24am 0.03 T/MM3 N 0.00 -0.03 COMMENT PRE-OP WILL CALL Immature Granulocyte % (Auto) December 29, 2013 8:24am 0.4 % N 0.0-0.5 COMMENT PRE-OP WILL CALL Immature Reticulocyte Fraction December 25, 2010 2:10am 16.0 % H 3.3- 14.5 COMMENT OK TO USE BLOOD IN THE LAB Iron Level December 24, 2010 8:06pm 19 UG/DL L 37-170 LDL Cholesterol, Calculated April 16, 2013 5:30am 159.0 N 66-159 Lab Scanned Report August 28, 2013 9:51am LAB TEST FORM REQUEST [id number] - Lipase January 26, 2011 9:05am 269 U/L N 23-300 Lymphocytes # (Auto) December 29, 2013 8:24am 3.3 T/MM3 N 1-4.8 COMMENT PRE-OP WILL CALL Lymphocytes # (Manual) February 01, 2011 5:15am 2.7 T/MM3 N 1-4.8 Lymphocytes % (Manual) February 01, 2011 5:15am 32.0 % N 23-45 Lymphocytes (%) (Auto) December 29, 2013 8:24am 40.7 % N 23-45 COMMENT PRE-OP WILL CALL Magnesium Level July 06, 2013 7:51am 2.6 MG/DL H 1.6-2.3 Mean Corpuscular Hemoglobin December 29, 2013 8:24am 26.4 UUG N 26-34 COMMENT PRE-OP WILL CALL Mean Corpuscular Hemoglobin Concent December 29, 2013 8:24am 30.6 GM/DL L 31-37 COMMENT PRE-OP WILL CALL Mean Corpuscular Volume December 29, 2013 8:24am 86.5 UM3 N 80-100 COMMENT PRE-OP WILL CALL Mean Platelet Volume December 29, 2013 8:24am 11.6 UM3 N 9.4-12.4 COMMENT PRE-OP WILL CALL Monocytes # (Auto) December 29, 2013 8:24am 0.6 T/MM3 N 0-0.8 COMMENT PRE-OP WILL CALL Monocytes # (Manual) February 01, 2011 5:15am 0.9 T/MM3 H 0-0.8 Monocytes % (Manual) February 01, 2011 5:15am 10.0 % H 0-9.0 Monocytes (%) (Auto) December 29, 2013 8:24am 7.7 % N 0-9.0 COMMENT PRE -OP WILL CALL GY-Ske-A-Type Natriuretic Peptide April 13, 2013 10:35pm 65 PG/ML N 0 -175 Rule in cut points: <50 years old=450; 50-75 years old=900; >75 years old=1800; When utilizing ProBNP rule-in cut points, adjustment for impaired renal function is typically not required. Neutrophils # (Auto) December 29, 2013 8:24am 2.2 T/MM3 N 1.8-7.7 COMMENT PRE-OP WILL CALL Neutrophils # (Manual) February 01, 2011 5:15am 4.3 T/MM3 N 1.8-7.7 Neutrophils % (Manual) February 01, 2011 5:15am 51.0 % N 33-66 Neutrophils (%) (Auto) December 29, 2013 8:24am 27.5 % L 33-66 COMMENT PRE-OP WILL CALL Oxygen Delivery Method (LAB) January 29, 2011 11:50am Nasal cannula, liters - Percent Reticulocyte Count December 25, 2010 2:10am 1.4 % N 0.6-1.7 COMMENT OK TO USE BLOOD IN THE LAB Platelet Count December 29, 2013 8:24am 192 T/MM3 N 130-400 COMMENT PRE -OP WILL CALL Potassium Level December 29, 2013 8:24am 5.2 MEQ/L H 3.6-5 COMMENT PRE- OP WILL CALL Prothromb Time International Ratio April 13, 2013 10:35pm 1.03 N 0.86 -1.10 THERAPUTIC RANGE=2.00-3.00 FOR ANTI-THROMBOSIS THERAPUTIC RANGE=2.50- 3.50 FOR IMPLANTED VALVE RDW Standard Deviation December 29, 2013 8:24am 49.5 FL N 36.9-50.2 COMMENT PRE-OP WILL CALL Red Blood Count December 29, 2013 8:24am 4.16 M/MM3 N 4.00-5.20 COMMENT PRE-OP WILL CALL Reticulocyte Hgb Content (CHr) December 25, 2010 2:10am 24.7 PG L 30.8- 36.6 COMMENT OK TO USE BLOOD IN THE LAB Sodium Level December 29, 2013 8:24am 143 MEQ/L N 134-144 COMMENT PRE- OP WILL CALL Thyroid Stimulating Hormone (TSH) April 15, 2013 1:40pm 0.74 MIU/L N 0.47-4.68 Total Bilirubin December 29, 2013 8:24am 0.30 MG/DL N 0.20-1.30 COMMENT PRE-OP WILL CALL Total Creatine Kinase April 15, 2013 1:40pm 62 U/L N 30-135 Total Iron Binding Capacity December 24, 2010 2:05pm 387 UG/DL N 261- 497 Total Protein December 29, 2013 8:24am 7.7 G/DL N 6.3-8.2 COMMENT PRE- OP WILL CALL Triglycerides Level April 16, 2013 5:30am 250 MG/DL H 35-135 Troponin I April 16, 2013 5:30am < 0.012 ng/ml 0-0.12 COMMENT on blood already drawn Turbidity December 29, 2013 8:24am < 20 0-20 COMMENT PRE-OP WILL CALL Unconjugated Bilirubin December 24, 2010 2:05pm 0.00 MG/DL N 0.00-1.10 Urinalysis Comment April 15, 2013 4:30pm Microscopic not ind. - Has specimen been collected/obtained? Y Urine Bacteria January 29, 2011 1:15am 3+ H - Has specimen been collected/obtained? Y Urine Bilirubin April 15, 2013 4:30pm Negative - Has specimen been collected/obtained? Y Urine Blood April 15, 2013 4:30pm Negative - Has specimen been collected/obtained? Y Urine Collection Type April 15, 2013 4:30pm Voided-not cc-midstr - Has specimen been collected/obtained? Y Urine Color April 15, 2013 4:30pm Yellow - Has specimen been collected/obtained? Y Urine Culture Indicated January 29, 2011 1:15am Cult reflexed &setup - Has specimen been collected/obtained? Y Urine Glucose (UA) April 15, 2013 4:30pm Negative - Has specimen been collected/obtained? Y Urine Ketones April 15, 2013 4:30pm Negative - Has specimen been collected/obtained? Y Urine Leukocyte Esterase April 15, 2013 4:30pm Negative - Has specimen been collected/obtained? Y Urine Microscopic Not Indicated December 20, 2011 11:02am Not indicated - Has specimen been collected/obtained? Y Urine Nitrite April 15, 2013 4:30pm Negative - Has specimen been collected/obtained? Y Urine Protein April 15, 2013 4:30pm Negative - Has specimen been collected/obtained? Y Urine RBC January 29, 2011 1:15am 3-5 /HPF H - Has specimen been collected/obtained? Y Urine Specific [place] April 15, 2013 4:30pm 1.015 - Has specimen been collected/obtained? Y Urine Turbidity April 15, 2013 4:30pm Clear - Has specimen been collected/obtained? Y Urine Urobilinogen April 15, 2013 4:30pm 0.2 EU/DL - Has specimen been collected/obtained? Y Urine WBC January 29, 2011 1:15am 10-20 /HPF H - Has specimen been collected/obtained? Y Urine pH April 15, 2013 4:30pm 6.0 - Has specimen been collected/ obtained? Y VLDL Cholesterol April 16, 2013 5:30am 50.0 MG/DL H 0-28 Vancomycin Level Trough June 28, 2008 11:45pm 7.2 UG/ML L 15-20 Vitamin B12 Level December 24, 2010 8:06pm 486 PG/ML N 239-931 White Blood Count December 29, 2013 8:24am 8.0 T/MM3 N 4.5-11.0 COMMENT PRE-OP WILL CALL Blood Culture Blood January 29, 2011 1:05am NO GROWTH AFTER 5 DAYS Helicobacter pylori Rapid Urease Gastric Biopsy November 25, 2013 8:28am Urine Culture Urine, [place] January 29, 2011 1:34am Escherichia Coli Gram Stain Ankle-Right June 26, 2008 5:10pm Procedures Procedure Status Date Provider(s) EGD BIOPSY SINGLE/MULTIPLE completed 11/25/13 KECIA GARDUNO MD DIAGNOSTIC COLONOSCOPY completed 11/25/13 KECIA GARDUNO MD
--- OUTSIDE RECORDS SUMMARY | 2016-06-24 21:42 | XMS REPORT | Continuity of Care Document ---
Author Author [facility] Organization [facility] Address Unknown Phone Unavailable Support Name Relationship Address Phone AMNA WEINBERG MD Caregiver [address] [place] [address] SHANTELL JACKSON MD Caregiver [facility] [address] [place] [address] Unavailable BRAD ALFREDO MD Caregiver [address] [place], [place] [phone] CYNDI ARIAS Next Of Kin [address] [place], [place] [address] C Insurance Providers Payer Name Policy Number Subscriber Name Relationship Medicare [id number] Mac Stella Angulo 19 Self [facility] [id number] Mac ChowcharleneStella K 19 Self Advance Directives Directive Response Recorded Date/Time Advanced Directives Type DNR Documentation 02/27/14 10:12am Ordered Resuscitation Status Full Code 02/27/14 10:06am Resuscitation Documents on File Yes 02/27/14 10:40am Chief Complaint and Reason for Visit Chief Complaint CONFUSION, ACUTE RENAL INSUFF,WEAK Reason for Visit Confusion Renal insufficiency Weakness Altered mental status Problems Medical Problems Problem Onset Date Status Non-cardiac chest pain Unknown Active Confusion Unknown Active Renal insufficiency Unknown Active Weakness Unknown Active Altered mental status 02/27/2014 Active Medications Medication Dose Route Sig Days/Qty [...] TWICE A DAY 12/24/10 12/20/11 Discontinued Fish Oil/Ryde-3 Fatty Acids 2 Cap PO DAILY 12/24/10 [...] DAILY 90 Qty 04/03/12 Active Pramipexole Di-Hcl 2 Tab PO BEDTIME 04/03/12 Active Nitroglycerin 0.4 Mg SL EVERY 10 MINUTES PRN TAKE 1 TABLET UNDER THE TONGUE NEEDED FOR CHEST DISCOMFORT. 04/03/12 Active Zolpidem Tartrate 10 Mg PO BEDTIME 04/03/12 Active Lisinopril/Hydrochlorothiazide 2 Tab PO DAILY 180 Qty 11/24/13 Active Calcium Carbonate/Vitamin D3 2 Tab PO DAILY 11/24/13 Active Fluticasone Propionate 2 [place] NS DAILY 16 Qty 11/24/13 Active Lutein 20 Mg PO DAILY 11/24/13 Active Metoprolol Tartrate 25 Mg PO TWICE A DAY 60 Qty 11/24/13 Active Tizanidine HCl 4 Mg PO NEEDED 90 Qty 11/24/13 Active Ca Cmb No.1/Vit D3/B-6/FA/B12 1 Tab PO DAILY 11/24/13 Active Fluoxetine HCl 1 Cap PO DAILY 12/29/13 Active Butalbital/Aspirin/Caffeine TWICE A DAY 02/27/14 Active Social History Social History Problem Response Recorded Date/Time Hx Substance Use No 02/27/2014 7:38am Hx Alcohol Use No 02/27/2014 7:38am Has the pt used tobacco in the last 12 months No 02/27/2014 10:42am Tobacco Usage none 02/27/2014 7:45am Query Response Start Date Stop Date Smoking Status Never smoker Hospital Discharge Instructions Instructions: Care Instructions: Reason for Hospitalization: altered mental status I was in the hospital because (patient own words): PT STATES "I WAS THROWING UP AND HAD DIARRHEA AND GOT VERY WEAK" Discharge Diet: as tolerated Discharge Activity: as tolerated Follow Up Appointments: 1-2 weeks w/ Dr. Weinberg Condition at time of discharge: Good Weight Pounds: 7 (lbs) Weight Ounces: 15.27 (oz) Dismissal Weight: 7lbs 4.58 oz Bilirubin Level: 6.5 Congenital Heart Disease Screening Result: Pass Plan of Care Discharge Date 02/27/14 6:20pm Disposition 01 DISCHARGED HOME, SELF-CARE Instructions/Education Provided DI for Dehydration -- Adult DI for Vomiting -- Adult DI for Muscle Weakness Dizziness, Nonvertigo DI for Altered Mental Status Prescriptions See Medications Section Functional Status Query Response Date Recorded Physical Hygiene Self February 27, 2014 5:31pm Disabilities Visual February 27, 2014 5:31pm Devices Used Dentures Glasses February 27, 2014 5:31pm Dressing Self February 27, 2014 5:31pm Ambulation Self February 27, 2014 5:31pm Diet Self February 27, 2014 5:31pm Mental Status Alert Oriented February 27, 2014 5:31pm Disabilities Visual February 27, 2014 5:31pm Devices Used Dentures Glasses February 27, 2014 5:31pm Physical Hygiene Self February 27, 2014 5:31pm Dressing Self February 27, 2014 5:31pm Ambulation Self February 27, 2014 5:31pm Diet Self February 27, 2014 5:31pm Allergies, Adverse Reactions, Alerts Allergen Type Severity Reaction Status Last Updated rosuvastatin calcium Allergy Intermediate "MADE ME SICK" Active 02/27/14 Penicillin Allergy Mild RASH Active 02/27/14 Lorazepam Allergy Unknown Active 02/27/14 Prednisone Adverse Reaction Mild "Makes me crazy" Active 02/27/14 Sulfamethoxazole Allergy Unknown VOMITING Active 01/11/15 Trimethoprim Allergy Unknown VOMITING Active 02/27/14 Immunizations Name Given Type Hx Influenza Vaccination Y 10/2013 Historical Hx Pneumococcal Vaccination Y Oct Historical Hx Influenza Vaccination Y 10/2013 Historical Vital Signs Acute Vital Signs Vital Response Date/Time Temperature (Fahrenheit) 100.1 deg F (96.8 - 99.1) Temperature (Calculated Celsius) 37.16877 degrees C (36.0 - 37.3) Temperature Source Temporal Pulse Rate (adult) 66 bpm (60 - 100) Respiratory Rate 16 breaths/min (10 - 20) O2 Sat by Pulse Oximetry 93 % (90 - 100) Oxygen Delivery Method Room Air Blood Pressure 140/58 mm Hg Blood Pressure Source Automatic Cuff Height 5 ft 4 in Weight 183 lb Body Mass Index 31.0 kg/m^2 Results Test Source Date Result Interp. Ref. Range Comments Absolute Reticulocyte Count December 25, 2010 2:10am 0.0533 T/MM3 N 0.0300-0.0900 COMMENT OK TO USE BLOOD IN THE LAB Activated Partial Thromboplast Time April 13, 2013 10:35pm 36.9 SEC H 24-36 Alanine Aminotransferase (ALT/SGPT) February 27, 2014 8:14am 24 U/L N 9- 52 Albumin February 27, 2014 8:14am 4.9 G/DL N 3.5-5.0 Albumin/Globulin Ratio February 27, 2014 8:14am 1.3 RATIO N 1.1-2.2 Alkaline Phosphatase February 27, 2014 8:14am 152 U/L H 38-126 Amylase Level January 26, 2011 9:05am 82 U/L N 30-110 Anion Gap February 27, 2014 5:50pm 5 MEQ/L N 5-15 Arterial Blood Base Excess January 29, 2011 [...] MMHG N 80-100 Aspartate Amino Transf (AST/SGOT) February 27, 2014 8:14am 29 U/L N 14- 36 B-Type Natriuretic Peptide January 26, 2011 7:46am < 15 PG/ML L 15-100 BUN/Creatinine Ratio February 27, 2014 5:50pm 19 RATIO N 6-26 Band Neutrophils # January 29, 2011 1:05am 0.1 T/MM3 - COMMENT FROM BLOOD IN LAB. RUN NOW PLEASE Band Neutrophils % January 29, 2011 1:05am 1.0 % N 0-6 COMMENT FROM BLOOD IN LAB. RUN NOW PLEASE Basophils # (Auto) February 27, 2014 8:14am 0.2 T/MM3 N 0-0.2 Basophils # (Manual) June 26, 2008 4:50pm 0.2 T/MM3 N 0-0.2 Basophils % (Manual) June 26, 2008 4:50pm 2.0 % N 0-2 Basophils (%) (Auto) February 27, 2014 8:14am 2.7 % H 0-2 Blood Urea Nitrogen February 27, 2014 5:50pm 34.0 MG/DL H 7-17 Calcium Level February 27, 2014 5:50pm 9.8 MG/DL DN 8.4-10.2 Calculated Osmolality February 27, 2014 5:50pm 282 MOSM/KG H 261-280 Carbon Dioxide Level February 27, 2014 5:50pm 24 MEQ/L N 22-30 Chemistry Specimen Hemolysis February 27, 2014 5:50pm < 15 0-25 0-25: No Hemolysis.26-70: Slight Hemolysis - can falsely elevate K and Urine Protein. 71-285: Moderate Hemolysis - can falsely elevate K, Troponin I, CA 19-9, PTH, CSF GLucose, and Urine Protein, and can falsely decrease Phenytoin. 286-999: Gross Hemolysis - can falsely elevate K, Troponin I, CA 19-9, PTH, CSF Glucose, and Urine Protine, and can falsely decrease Phenytoin. Recommend specimen recollection. Chloride Level February 27, 2014 5:50pm 113 MEQ/L H 98-107 Cholesterol Level April 16, 2013 5:30am 264 MG/DL H 132-199 Cholesterol/HDL Ratio April 16, 2013 5:30am 4.8 RATIO H 0-4.0 Conjugated Bilirubin December 24, 2010 2:05pm 0.00 MG/DL N 0.00-0.30 Creatine Kinase MB April 15, 2013 1:40pm < 0.2 NG/ML 0-3.4 Creatinine February 27, 2014 5:50pm 1.8 MG/DL DH 0.7-1.2 D-Dimer April 13, 2013 10:35pm 741 NG/ML H 0-400 <400 NG/ML= PRESUMPTIVE NEGATIVE FOR PE OR DVT>400 NG/ML=ADDITIONAL EVALUATION FOR PE OR DVT RECOMMENDED Eosinophils # (Auto) February 27, 2014 8:14am 1.4 T/MM3 H 0-0.5 Eosinophils # (Manual) February 01, 2011 5:15am 0.6 T/MM3 H 0-0.5 Eosinophils % (Manual) February 01, 2011 5:15am 7.0 % H 0-4 Eosinophils (%) (Auto) February 27, 2014 8:14am 18.7 % H 0-4 Erythrocyte Sedimentation Rate April 15, 2013 1:40pm 27 MM/HR H 0-20 Ferritin December 24, 2010 8:06pm 8.66 NG/ML L 11-264 Globulin February 27, 2014 8:14am 3.8 G/DL H 2.4-3.6 Glomerular Filtration Rate Calc February 27, 2014 5:50pm 28 - Glucose Level February 27, 2014 5:50pm 110 MG/DL N 65-110 HDL Cholesterol Direct April 16, 2013 5:30am 55 MG/DL N 40-60 Hematocrit February 27, 2014 8:14am 38.1 % N 36-46 Hemoglobin February 27, 2014 8:14am 11.6 GM/DL L 12-16 Icterus Index February 27, 2014 5:50pm < 2 0-7 Immature Granulocyte # (Auto) February 27, 2014 8:14am 0.02 T/MM3 N 0.00- 0.03 Immature Granulocyte % (Auto) February 27, 2014 8:14am 0.3 % N 0.0-0.5 Immature Reticulocyte Fraction December 25, 2010 2:10am 16.0 % H 3.3- 14.5 COMMENT OK TO USE BLOOD IN THE LAB Influenza Type A Antigen February 27, 2014 8:14am Negative - Negative for Flu A protein antigen. Assay sensitivity is90%. Influenza Type B Antigen February 27, 2014 8:14am Negative - Negative for Flu B protein antigen. Assay sensitivity is90%. Iron Level December 24, 2010 8:06pm 19 UG/DL L 37-170 LDL Cholesterol, Calculated April 16, 2013 5:30am 159.0 N 66-159 Lab Scanned Report August 28, 2013 9:51am LAB TEST FORM REQUEST [id number] - Lipase February 27, 2014 8:14am 188 U/L N 23-300 Lymphocytes # (Auto) February 27, 2014 8:14am 2.3 T/MM3 N 1-4.8 Lymphocytes # (Manual) February 01, 2011 5:15am 2.7 T/MM3 N 1-4.8 Lymphocytes % (Manual) February 01, 2011 5:15am 32.0 % N 23-45 Lymphocytes (%) (Auto) February 27, 2014 8:14am 31.5 % N 23-45 Magnesium Level July 06, 2013 7:51am 2.6 MG/DL H 1.6-2.3 Mean Corpuscular Hemoglobin February 27, 2014 8:14am 26.5 UUG N 26-34 Mean Corpuscular Hemoglobin Concent February 27, 2014 8:14am 30.4 GM/DL L 31-37 Mean Corpuscular Volume February 27, 2014 8:14am 87.0 UM3 N 80-100 Mean Platelet Volume February 27, 2014 8:14am 11.4 UM3 N 9.4-12.4 Monocytes # (Auto) February 27, 2014 8:14am 0.5 T/MM3 N 0-0.8 Monocytes # (Manual) February 01, 2011 5:15am 0.9 T/MM3 H 0-0.8 Monocytes % (Manual) February 01, 2011 5:15am 10.0 % H 0-9.0 Monocytes (%) (Auto) February 27, 2014 8:14am 6.5 % N 0-9.0 GO-Kxe-B-Type Natriuretic Peptide April 13, 2013 10:35pm 65 PG/ML N 0 -175 Rule in cut points: <50 years old=450; 50-75 years old=900; >75 years old=1800; When utilizing ProBNP rule-in cut points, adjustment for impaired renal function is typically not required. Neutrophils # (Auto) February 27, 2014 8:14am 3.0 T/MM3 N 1.8-7.7 Neutrophils # (Manual) February 01, 2011 5:15am 4.3 T/MM3 N 1.8-7.7 Neutrophils % (Manual) February 01, 2011 5:15am 51.0 % N 33-66 Neutrophils (%) (Auto) February 27, 2014 8:14am 40.3 % N 33-66 Oxygen Delivery Method (LAB) January 29, 2011 11:50am Nasal cannula, liters - Percent Reticulocyte Count December 25, 2010 2:10am 1.4 % N 0.6-1.7 COMMENT OK TO USE BLOOD IN THE LAB Platelet Count February 27, 2014 8:14am 261 T/MM3 N 130-400 Potassium Level February 27, 2014 5:50pm 5.1 MEQ/L H 3.6-5 Prothromb Time International Ratio April 13, 2013 10:35pm 1.03 N 0.86 -1.10 THERAPUTIC RANGE=2.00-3.00 FOR ANTI-THROMBOSIS THERAPUTIC RANGE=2.50- 3.50 FOR IMPLANTED VALVE RDW Standard Deviation February 27, 2014 8:14am 48.6 FL N 36.9-50.2 Red Blood Count February 27, 2014 8:14am 4.38 M/MM3 N 4.00-5.20 Reticulocyte Hgb Content (CHr) December 25, 2010 2:10am 24.7 PG L 30.8- 36.6 COMMENT OK TO USE BLOOD IN THE LAB Sodium Level February 27, 2014 5:50pm 142 MEQ/L N 134-144 Thyroid Stimulating Hormone (TSH) April 15, 2013 1:40pm 0.74 MIU/L N 0.47-4.68 Total Bilirubin February 27, 2014 8:14am 0.40 MG/DL N 0.20-1.30 Total Creatine Kinase April 15, 2013 1:40pm 62 U/L N 30-135 Total Iron Binding Capacity December 24, 2010 2:05pm 387 UG/DL N 261- 497 Total Protein February 27, 2014 8:14am 8.7 G/DL H 6.3-8.2 Triglycerides Level April 16, 2013 5:30am 250 MG/DL H 35-135 Troponin I February 27, 2014 8:14am < 0.012 ng/ml 0-0.12 Turbidity February 27, 2014 5:50pm < 20 0-20 Unconjugated Bilirubin December 24, 2010 2:05pm 0.00 MG/DL N 0.00-1.10 Urinalysis Comment February 27, 2014 8:20am Microscopic not ind. - Has specimen been collected/obtained? Y Urine Bacteria January 29, 2011 1:15am 3+ H - Has specimen been collected/obtained? Y Urine Bilirubin February 27, 2014 8:20am Negative - Has specimen been collected/obtained? Y Urine Blood February 27, 2014 8:20am Negative - Has specimen been collected/obtained? Y Urine Collection Type February 27, 2014 8:20am Cleancatch-midstream - Has specimen been collected/obtained? Y Urine Color February 27, 2014 8:20am Yellow - Has specimen been collected/obtained? Y Urine Culture Indicated January 29, 2011 1:15am Cult reflexed &setup - Has specimen been collected/obtained? Y Urine Glucose (UA) February 27, 2014 8:20am Negative - Has specimen been collected/obtained? Y Urine Ketones February 27, 2014 8:20am Negative - Has specimen been collected/obtained? Y Urine Leukocyte Esterase February 27, 2014 8:20am Negative - Has specimen been collected/obtained? Y Urine Microscopic Not Indicated December 20, 2011 11:02am Not indicated - Has specimen been collected/obtained? Y Urine Nitrite February 27, 2014 8:20am Negative - Has specimen been collected/obtained? Y Urine Protein February 27, 2014 8:20am Negative - Has specimen been collected/obtained? Y Urine RBC January 29, 2011 1:15am 3-5 /HPF H - Has specimen been collected/obtained? Y Urine Specific [place] February 27, 2014 8:20am 1.010 L - Has specimen been collected/obtained? Y Urine Turbidity February 27, 2014 8:20am Clear - Has specimen been collected/obtained? Y Urine Urobilinogen February 27, 2014 8:20am 0.2 EU/DL - Has specimen been collected/obtained? Y Urine WBC January 29, 2011 1:15am 10-20 /HPF H - Has specimen been collected/obtained? Y Urine pH February 27, 2014 8:20am 5.5 - Has specimen been collected/ obtained? Y VLDL Cholesterol April 16, 2013 5:30am 50.0 MG/DL H 0-28 Vancomycin Level Trough June 28, 2008 11:45pm 7.2 UG/ML L 15-20 Vitamin B12 Level December 24, 2010 8:06pm 486 PG/ML N 239-931 White Blood Count February 27, 2014 8:14am 7.3 T/MM3 N 4.5-11.0 Blood Culture Blood January 29, 2011 1:05am NO GROWTH AFTER 5 DAYS Helicobacter pylori Rapid Urease Gastric Biopsy November 25, 2013 8:28am Urine Culture Urine, [place] January 29, 2011 1:34am Escherichia Coli Gram Stain Ankle-Right June 26, 2008 5:10pm Name: STELLA ZAZUETA Unit #: [id number] : 1940 Sex: F Loc / Svc: SRG DOS: 02/27/14 Signed Report #: [id number] DIAGNOSTIC IMAGING REPORT TYPE OF EXAM: CT HEAD W/O CONTRAST Dictated By: PEDRO PIÑA MD INDICATION: ITS.REASON: confusion, headache. CT HEAD W/O CONTRAST: Comparison: April 03, 2012 Technique: Axial CT images through the head were performed without contrast. FINDINGS: The ventricles are of normal size, shape, and contour for the patient's age. There are scattered areas of low attenuation in the white matter which most likely represent changes from chronic microvascular ischemia. The brainstem, cerebellum, and cerebral hemispheres otherwise have a normal morphology and CT attenuation. There is no evidence of midline displacement. No hemorrhage, signs of acute territorial stroke, mass effect, mass lesions, or edema is evident. The visualized portions of the skull base, midface, and calvarium demonstrate no abnormality. The paranasal sinuses are well aerated and free of significant disease. The tympanic and mastoid cavities appear normal. IMPRESSION: No acute intracranial abnormality or hemorrhage. There is a preliminary report by [employer]. . Procedures Procedure Status Date Provider(s) ROUTINE VENIPUNCTURE completed 12/29/13 INJECTION FOR BLADDER X-RAY completed 12/29/13 ÁLVARO PHILLIPS MD CYSTOSCOPY AND TREATMENT completed 12/29/13 ÁLVARO PHILLIPS MD CONTRAST X-RAY BLADDER completed 12/29/13 COMPREHEN METABOLIC PANEL completed 12/29/13 COMPLETE CBC W/AUTO DIFF WBC completed 12/29/13 [id number] ITEM OR SERVICE completed 12/29/13 [id number] ITEM OR SERVICE completed 12/29/13 [id number] ITEM OR SERVICE completed 12/29/13 [id number]"INJECTION, FENTANYL CITRATE, 0.1 MG" completed 12/29/13 [id number]"INFUSION, NORMAL SALINE SOLUTION , 1000 CC" completed 12/29/13 [id number]"LOW OSMOLAR CONTRAST MATERIAL, 300-399 MG/ML IODINE C completed COMP SCREEN MAMMOGRAM ADD-ON completed 02/01/[id number]"SCREENING MAMMOGRAPHY, PRODUCING DIRECT DIGITAL IMAGE completed Encounters Encounter Location Date/Time Discharged Inpatient [facility] 02/27/14 10:06am Registered Clinic [facility] 02/01/14 10:38am Recent Diagnosis Confusion Renal insufficiency Weakness Altered mental status
--- OUTSIDE RECORDS SUMMARY | 2016-06-24 21:42 | XMS REPORT | Continuity of Care Document ---
Author Author [facility] Organization [facility] Address Unknown Phone Unavailable Support Name Relationship Address Phone AMNA WEINBERG MD Caregiver [address] [place], [place] [phone] EDDIE SUAREZ MD Caregiver [address] [place] [address] [place] [phone] CYNDI ARIAS Next Of Kin [address] [place] [address] C Insurance Providers Payer Name Policy Number Subscriber Name Relationship Medicare [id number] Mac ChowStella viera 18 Self [facility] [id number] Mac ChowdStella Dang 18 Self Advance Directives Directive Response Recorded Date/Time Advanced Directives Type None 03/05/14 2:10pm Chief Complaint and Reason for Visit Chief Complaint Nausea,Vomiting,Diarrhea Reason for Visit Confusion Renal insufficiency Weakness Problems Medical Problems Problem Onset Date Status Non-cardiac chest pain Unknown Active Confusion Unknown Active Renal insufficiency Unknown Active Weakness Unknown Active Altered mental status 02/27/2014 Active Minor head injury without loss of consciousness Unknown Active Scalp laceration Unknown Active Minor head injury without loss of consciousness Unknown Active Medications Medication Dose Route Sig [...] TWICE A DAY 12/24/10 12/20/11 Discontinued Fish Oil/[place]-3 Fatty Acids 2 Cap PO DAILY 12/24/10 [...] PO DAILY 11/24/13 Active Fluticasone Propionate 2 [place] NS DAILY 16 Qty 11/24/13 03/05/14 Discontinued Lutein 20 Mg PO DAILY 11/24/13 Active [...] Response Recorded Date/Time Hx Substance Use No 03/05/2014 2:16pm Hx Alcohol Use No 03/05/2014 2:16pm Has the pt used tobacco in the [...] Follow Up Appointments: 1-2 weeks w/ Dr. Wienberg Condition at time of discharge: Good Wound/Incision Care: keep dressing clean and dry and follow up with wound center on friday03/07/14 at 930 am Condition at time of discharge: Good Pass Increased or foul smelling drainage Chills IF BLEEDING, PAIN OR PROGRESSIVE SWELLING OCCURS TO THE SITE, APPLY PRESSURE AND CALL 911. Condition at time of discharge: Fair Condition at time of discharge: Good Plan of Care Discharge Date 02/27/14 6:20pm Condition at Discharge Improved Instructions/Education Provided DI for Dehydration -- Adult DI for Vomiting -- Adult DI for Muscle Weakness Dizziness, Nonvertigo DI for Altered Mental Status Prescriptions See Medications Section Referrals AMNA WEINBERG MD Functional Status Query Response Date Recorded Physical Hygiene Self March 05, 2014 2:16pm Disabilities None March 05, 2014 2:16pm Devices Used None March 05, 2014 2:16pm Dressing Self March 05, 2014 2:16pm Ambulation Self March 05, 2014 2:16pm Diet Self March 05, 2014 2:16pm Mental Status Alert Oriented March 05, 2014 2:16pm Disabilities None March 05, 2014 2:16pm Devices Used None March 05, 2014 2:16pm Physical Hygiene Self March 05, 2014 2:16pm Dressing Self March 05, 2014 2:16pm Ambulation Self March 05, 2014 2:16pm Diet Self March 05, 2014 2:16pm Allergies, Adverse Reactions, Alerts Allergen Type Severity Reaction Status Last Updated rosuvastatin calcium Allergy Intermediate "MADE ME SICK" Active 03/05/14 Penicillin Allergy Mild RASH Active 03/05/14 Lorazepam Allergy Unknown Active 03/05/14 Prednisone Adverse Reaction Mild "Makes me crazy" Active 02/27/14 Sulfamethoxazole Allergy Unknown VOMITING Active 03/05/14 Trimethoprim Allergy Unknown VOMITING Active 02/27/14 Immunizations Name Given Type Hx Influenza Vaccination Y NOV 2013 Historical Hx Pneumococcal Vaccination Y Oct Historical Hx Influenza Vaccination Y NOV 2013 Historical Tdap 03/05/14 Administered Vital Signs Acute Vital Signs Vital Response Date/Time Temperature (Fahrenheit) 97.7 deg F (96.8 - 99.1) Temperature (Calculated Celsius) 36.30637 degrees C (36.0 - 37.3) Pulse Rate (adult) 50 bpm (60 - 100) Respiratory Rate 16 breaths/min (10 - 20) O2 Sat by Pulse Oximetry 93 % (90 - 100) Blood Pressure 103/53 mm Hg Height 5 ft 4 in Weight 188 lb Body Mass Index 32.0 kg/m^2 Results [...] January 29, 2011 11:50am 7.500 H 7.350-7.450 Aspartate Amino Transf (AST/SGOT) February 27, 2014 [...] 27, 2014 5:50pm 24 MEQ/L N 22-30 Chloride Level February 27, 2014 5:50pm 113 [...] 27, 2014 8:14am 3.8 G/DL H 2.4-3.6 Glucose Level February 27, 2014 5:50pm 110 MG/DL N 65-110 Hematocrit February 27, 2014 8:14am 38.1 % N 36-46 Hemoglobin February 27, 2014 8:14am 11.6 GM/DL L 12-16 Immature Reticulocyte Fraction December 25, 2010 2:10am [...] April 16, 2013 5:30am 159.0 N 66-159 Lipase February 27, 2014 8:14am 188 U/L [...] 27, 2014 8:14am 6.5 % N 0-9.0 Neutrophils # (Auto) February 27, 2014 8:14am 3.0 T/MM3 N 1.8-7.7 Neutrophils # (Manual) February 01, 2011 5:15am 4.3 T/MM3 N 1.8-7.7 Neutrophils % (Manual) February 01, 2011 5:15am 51.0 % N 33-66 Neutrophils (%) (Auto) February 27, 2014 8:14am 40.3 % N 33-66 Percent Reticulocyte Count December 25, 2010 2:10am [...] 27, 2014 8:14am < 0.012 ng/ml 0-0.12 Unconjugated Bilirubin December 24, 2010 2:05pm 0.00 MG/DL N 0.00-1.10 Urine Bacteria January 29, 2011 1:15am 3+ [...] Has specimen been collected/obtained? Y Urine Specific [place] February 27, 2014 8:20am 1.010 L - [...] 27, 2014 8:14am 7.3 T/MM3 N 4.5-11.0 Chemistry Specimen Hemolysis February 27, 2014 5:50pm [...] can falsely decrease Phenytoin. Recommend specimen recollection. Oxygen Delivery Method (LAB) January 29, 2011 11:50am Nasal cannula, liters - Urinalysis Comment February 27, 2014 8:20am Microscopic not ind. - Has specimen been collected/obtained? Y Lab Scanned Report August 28, 2013 9:51am LAB TEST FORM REQUEST [id number] - HDL Cholesterol Direct April 16, 2013 5:30am 55 MG/DL N 40-60 Turbidity February 27, 2014 5:50pm < 20 0-20 Glomerular Filtration Rate Calc February 27, 2014 5:50pm 28 - Immature Granulocyte # (Auto) February 27, 2014 8:14am 0.02 T/MM3 N 0.00- 0.03 Immature Granulocyte % (Auto) February 27, 2014 8:14am 0.3 % N 0.0-0.5 Arterial Blood pO2 at Patient Temp January 29, 2011 11:50am 95 MMHG N 80-100 Icterus Index February 27, 2014 5:50pm < 2 0-7 AK-Qrb-V-Type Natriuretic Peptide April 13, 2013 10:35pm 65 PG/ML N 0 -175 Rule in cut points: <50 years old=450; 50-75 years old=900; >75 years old=1800; When utilizing ProBNP rule-in cut points, adjustment for impaired renal function is typically not required. Urine Microscopic Not Indicated December 20, 2011 11:02am Not indicated - Has specimen been collected/obtained? Y Blood Culture Blood January 29, 2011 1:05am NO GROWTH AFTER 5 DAYS Urine Culture Urine, [place] January 29, 2011 1:34am Escherichia Coli Gram Stain Ankle-Right June 26, 2008 5:10pm Helicobacter pylori Rapid Urease Gastric Biopsy November 25, 2013 8:28am Name: STELLA ZAZUETA Unit #: [id number] : 1940 Sex: F Loc / Svc: SRG DOS: 02/27/14 Signed Report #: [id number] DIAGNOSTIC IMAGING REPORT TYPE OF EXAM: CT [...] hemorrhage. There is a preliminary report by Tabber. . Procedures Procedure Status Date Provider(s) ROUTINE VENIPUNCTURE completed 12/29/13 INJECTION FOR BLADDER X-RAY completed 12/29/13 ÁLVARO PHILLIPS MD CYSTOSCOPY AND TREATMENT completed 12/29/13 ÁLVARO PHILLIPS MD CONTRAST X-RAY BLADDER completed 12/29/13 COMPREHEN METABOLIC PANEL completed 12/29/13 COMPLETE CBC W/AUTO DIFF WBC completed 12/29/13 [id number] ITEM OR SERVICE completed 12/29/13 [id number] ITEM OR SERVICE completed 12/29/13 [id number] ITEM OR SERVICE completed 12/29/13 [id number]"INJECTION, FENTANYL CITRATE, 0.1 MG" completed 12/29/13 [id number]"INFUSION, NORMAL SALINE SOLUTION , 1000 CC" completed 12/29/13 [id number]"LOW OSMOLAR CONTRAST MATERIAL, 300-399 MG/ML IODINE C completed COMP SCREEN MAMMOGRAM ADD-ON completed 02/01/14 [id number]"SCREENING MAMMOGRAPHY, PRODUCING DIRECT DIGITAL IMAGE completed Encounters Encounter Location Date/Time Departed Emergency Room [facility] 03/05/14 1:53pm Discharged Inpatient [facility] 02/27/14 10:06am Registered Clinic [facility] 02/01/14 10:38am Recent Diagnosis
--- OUTSIDE RECORDS SUMMARY | 2016-06-24 21:42 | XMS REPORT | Continuity of Care Document ---
Author Author [facility] Organization [facility] Address Unknown Phone Unavailable Support Name Relationship Address Phone AMNA MANJARREZ MD Caregiver [address] [place], [place] [phone] KECIA PIÑA MD Caregiver [address] [facility] [address] [place] [phone] CYNDI ARIAS Next Of Kin [address] [place] [address] Insurance Providers Payer Name Policy Number Subscriber Name Relationship Medicare [id number] Stella Diaz 18 Self [facility] [id number] Stella Diaz 18 Self Advance Directives Directive Response Recorded Date/Time Ordered Resuscitation Status Full Code 11/24/13 11:32am Resuscitation Documents on File Yes 11/24/13 10:16am Problems Medical Problems Problem Onset Date Status [...] TWICE A DAY 12/24/10 12/20/11 Discontinued Fish Oil/[place]-3 Fatty Acids 2 Cap PO DAILY 12/24/10 [...] D3 2 Tab PO DAILY 11/24/13 Active Butalb/Acetaminophen/Caffeine 1 Tab PO BID PRN 60 Qty 11/24/13 Active [place]-3 Fatty Acids/Fish Oil 1,000 Mg PO DAILY 11/24/13 Active Fluticasone Propionate 2 [place] NS DAILY 16 Qty 11/24/13 Active Lutein 20 Mg PO DAILY 11/24/13 Active Metoprolol Tartrate 25 Mg PO TWICE A DAY 60 Qty 11/24/13 Active Glucosamine HCl/Chondr [place] A Na 1 Tab PO THREE TIMES A DAY 11/24/13 Active Tizanidine HCl 4 Mg PO NEEDED 90 Qty 11/24/13 Active Ca Cmb No.1/Vit D3/B-6/FA/B12 1 Tab PO DAILY 11/24/13 Active Social History Social History Problem Response Recorded Date/Time Smoking Status Never smoker 11/24/2013 10:01am Chewing Tobacco Status No 11/24/2013 10:01am Hx Substance Use No 11/24/2013 10:01am Hx Alcohol Use No 11/24/2013 10:01am Has the pt used tobacco in the last 12 months No 11/24/2013 10:01am Query Response Start Date Stop Date Smoking [...] Vital Signs Vital Response Date/Time Temperature (Fahrenheit) 97.5 deg F (96.8 - 99.1) Temperature (Calculated Celsius) 36.06104 degrees C (36.0 - 37.3) Temperature Source Temporal Pulse Rate (adult) 52 bpm (60 - 100) Respiratory Rate 16 breaths/min (10 - 20) O2 Sat by Pulse Oximetry 94 % (90 - 100) Oxygen Delivery Method Room Air Blood Pressure 142/70 mm Hg Blood Pressure Source Automatic Cuff Height 5 ft 4 in Weight 187 lb Body Mass Index 32.0 kg/m^2 Results Test Source Date Result Interp. Ref. Range Comments Absolute Reticulocyte Count December 25, 2010 2:10am 0.0533 T/MM3 N 0.0300-0.0900 COMMENT OK TO USE BLOOD IN THE LAB Activated Partial Thromboplast Time April 13, 2013 10:35pm 36.9 SEC H 24-36 Alanine Aminotransferase (ALT/SGPT) April 15, 2013 1:40pm 32 U/L N 9- 52 Albumin April 15, 2013 1:40pm 4.3 G/DL N 3.5-5.0 Albumin/Globulin Ratio April 15, 2013 1:40pm 1.1 RATIO N 1.1-2.2 Alkaline Phosphatase April 15, 2013 1:40pm 151 U/L H 38-126 Amylase Level January 26, 2011 9:05am 82 U/L N 30-110 Anion Gap August 28, 2013 8:32am 10 MEQ/L N 5-15 CALL RESULTS TO [facility] Arterial Blood Base Excess January 29, 2011 [...] 7.500 H 7.350-7.450 Aspartate Amino Transf (AST/SGOT) April 15, 2013 1:40pm 32 U/L N 14- 36 B-Type Natriuretic Peptide January 26, 2011 7:46am < 15 PG/ML L 15-100 BUN/Creatinine Ratio August 28, 2013 8:32am 26 RATIO N 6-26 CALL RESULTS TO [facility] Band Neutrophils # January 29, 2011 1:05am 0.1 T/MM3 - COMMENT FROM BLOOD IN LAB. RUN NOW PLEASE Band Neutrophils % January 29, 2011 1:05am 1.0 % N 0-6 COMMENT FROM BLOOD IN LAB. RUN NOW PLEASE Basophils # (Auto) April 15, 2013 1:40pm 0.1 T/MM3 N 0-0.2 Basophils # (Manual) June 26, 2008 4:50pm 0.2 T/MM3 N 0-0.2 Basophils % (Manual) June 26, 2008 4:50pm 2.0 % N 0-2 Basophils (%) (Auto) April 15, 2013 1:40pm 0.9 % N 0-2 Blood Urea Nitrogen August 28, 2013 8:32am 37.0 MG/DL H 7-17 [facility] Calcium Level August 28, 2013 8:32am 10.0 MG/DL N 8.4-10.2 [facility] Calculated Osmolality August 28, 2013 8:32am 282 MOSM/KG H 261-280 [facility] Carbon Dioxide Level August 28, 2013 8:32am 24 MEQ/L N 22-30 [facility] Chloride Level August 28, 2013 8:32am 108 MEQ/L H 98-107 CALL RESULTS TO [facility] Cholesterol Level April 16, 2013 5:30am 264 MG/DL H 132-199 Cholesterol/HDL Ratio April 16, 2013 5:30am 4.8 RATIO H 0-4.0 Conjugated Bilirubin December 24, 2010 2:05pm 0.00 MG/DL N 0.00-0.30 Creatine Kinase MB April 15, 2013 1:40pm < 0.2 NG/ML 0-3.4 Creatinine August 28, 2013 8:32am 1.4 MG/DL H 0.7-1.2 CALL RESULTS TO [facility] D-Dimer April 13, 2013 10:35pm 741 NG/ML H 0-400 <400 NG/ML= PRESUMPTIVE NEGATIVE FOR PE OR DVT>400 NG/ML=ADDITIONAL EVALUATION FOR PE OR DVT RECOMMENDED Eosinophils # (Auto) April 15, 2013 1:40pm 0.5 T/MM3 N 0-0.5 Eosinophils # (Manual) February 01, 2011 5:15am 0.6 T/MM3 H 0-0.5 Eosinophils % (Manual) February 01, 2011 5:15am 7.0 % H 0-4 Eosinophils (%) (Auto) April 15, 2013 1:40pm 6.8 % H 0-4 Erythrocyte Sedimentation Rate April 15, 2013 1:40pm 27 MM/HR H 0-20 Ferritin December 24, 2010 8:06pm 8.66 NG/ML L 11-264 Globulin April 15, 2013 1:40pm 3.8 G/DL H 2.4-3.6 Glucose Level August 28, 2013 8:32am 94 MG/DL N 65-110 CALL RESULTS TO [facility] Hematocrit April 15, 2013 1:40pm 35.4 % L 36-46 Hemoglobin April 15, 2013 1:40pm 10.8 GM/DL L 12-16 Immature Reticulocyte Fraction December 25, 2010 2:10am 16.0 % H 3.3- 14.5 COMMENT OK TO USE BLOOD IN THE LAB Iron Level December 24, 2010 8:06pm 19 UG/DL L 37-170 LDL Cholesterol, Calculated April 16, 2013 5:30am 159.0 N 66-159 Lipase January 26, 2011 9:05am 269 U/L N 23-300 Lymphocytes # (Auto) April 15, 2013 1:40pm 2.7 T/MM3 N 1-4.8 Lymphocytes # (Manual) February 01, 2011 5:15am 2.7 T/MM3 N 1-4.8 Lymphocytes % (Manual) February 01, 2011 5:15am 32.0 % N 23-45 Lymphocytes (%) (Auto) April 15, 2013 1:40pm 33.4 % N 23-45 Magnesium Level July 06, 2013 7:51am 2.6 MG/DL H 1.6-2.3 Mean Corpuscular Hemoglobin April 15, 2013 1:40pm 25.1 UUG L 26-34 Mean Corpuscular Hemoglobin Concent April 15, 2013 1:40pm 30.5 GM/DL L 31-37 Mean Corpuscular Volume April 15, 2013 1:40pm 82.3 UM3 N 80-100 Mean Platelet Volume April 15, 2013 1:40pm 11.5 UM3 N 9.4-12.4 Monocytes # (Auto) April 15, 2013 1:40pm 0.7 T/MM3 N 0-0.8 Monocytes # (Manual) February 01, 2011 5:15am 0.9 T/MM3 H 0-0.8 Monocytes % (Manual) February 01, 2011 5:15am 10.0 % H 0-9.0 Monocytes (%) (Auto) April 15, 2013 1:40pm 9.1 % H 0-9.0 Neutrophils # (Auto) April 15, 2013 1:40pm 4.0 T/MM3 N 1.8-7.7 Neutrophils # (Manual) February 01, 2011 5:15am 4.3 T/MM3 N 1.8-7.7 Neutrophils % (Manual) February 01, 2011 5:15am 51.0 % N 33-66 Neutrophils (%) (Auto) April 15, 2013 1:40pm 49.5 % N 33-66 Percent Reticulocyte Count December 25, 2010 2:10am 1.4 % N 0.6-1.7 COMMENT OK TO USE BLOOD IN THE LAB Platelet Count April 15, 2013 1:40pm 269 T/MM3 N 130-400 Potassium Level August 28, 2013 8:32am 5.3 MEQ/L H 3.6-5 CALL RESULTS TO [facility] Prothromb Time International Ratio April 13, 2013 10:35pm 1.03 N 0.86 -1.10 THERAPUTIC RANGE=2.00-3.00 FOR ANTI-THROMBOSIS THERAPUTIC RANGE=2.50- 3.50 FOR IMPLANTED VALVE RDW Standard Deviation April 15, 2013 1:40pm 46.0 FL N 36.9-50.2 Red Blood Count April 15, 2013 1:40pm 4.30 M/MM3 N 4.00-5.20 Reticulocyte Hgb Content (CHr) December 25, 2010 2:10am 24.7 PG L 30.8- 36.6 COMMENT OK TO USE BLOOD IN THE LAB Sodium Level August 28, 2013 8:32am 142 MEQ/L N 134-144 CALL RESULTS TO [facility] Thyroid Stimulating Hormone (TSH) April 15, 2013 1:40pm 0.74 MIU/L N 0.47-4.68 Total Bilirubin April 15, 2013 1:40pm 0.20 MG/DL N 0.20-1.30 Total Creatine Kinase April 15, 2013 1:40pm 62 U/L N 30-135 Total Iron Binding Capacity December 24, 2010 2:05pm 387 UG/DL N 261- 497 Total Protein April 15, 2013 1:40pm 8.1 G/DL N 6.3-8.2 Triglycerides Level April 16, 2013 5:30am 250 MG/DL H 35-135 Troponin I April 16, 2013 5:30am < 0.012 ng/ml 0-0.12 COMMENT on blood already drawn Unconjugated Bilirubin December 24, 2010 2:05pm 0.00 [...] Has specimen been collected/obtained? Y Urine Specific [place] April 15, 2013 4:30pm 1.015 - Has [...] 486 PG/ML N 239-931 White Blood Count April 15, 2013 1:40pm 8.0 T/MM3 N 4.5-11.0 Chemistry Specimen Hemolysis August 28, 2013 8:32am < 15 0-25 0-25: No Hemolysis.26-70: Slight [...] 11:50am Nasal cannula, liters - Urinalysis Comment April 15, 2013 4:30pm Microscopic not ind. - Has specimen been collected/obtained? Y Lab Scanned Report August 28, 2013 9:51am LAB TEST FORM REQUEST [id number] - HDL Cholesterol Direct April 16, 2013 5:30am 55 MG/DL N 40-60 Turbidity August 28, 2013 8:32am < 20 0-20 CALL RESULTS TO [facility] Glomerular Filtration Rate Calc August 28, 2013 8:32am 37 - CALL RESULTS TO [facility] Immature Granulocyte # (Auto) April 15, 2013 1:40pm 0.02 T/MM3 N 0.00 -0.03 Immature Granulocyte % (Auto) April 15, 2013 1:40pm 0.3 % N 0.0-0.5 Arterial Blood pO2 at Patient Temp January 29, 2011 11:50am 95 MMHG N 80-100 Icterus Index August 28, 2013 8:32am < 2 0-7 CALL RESULTS TO [facility] XB-Fjd-N-Type Natriuretic Peptide April 13, 2013 10:35pm 65 [...] Ankle-Right June 26, 2008 5:10pm Name: STELLA DIAZ Unit #: [id number] : 1940 Sex: F Loc / c: [facility] DOS: 08/27/13 Signed Report #: [id number] DIAGNOSTIC IMAGING REPORT TYPE OF EXAM: CT CHEST W/O CONTRAST Dictated By: PEDRO PIÑA MD INDICATION: ITS.REASON: 786.[address] CHEST W/O CONTRAST: Comparison: CT angiogram of the chest dated April 13, 2013 Technique: Axial CT images were performed through the chest without intravenous contrast. Findings: The lungs are clear. No focal air space consolidation, pleural effusion or pneumothorax. Central airways are patent. No axillary or mediastinal lymphadenopathy. Thyroid gland appears normal. Heart size is within normal limits. No pericardial effusion. The visualized portions of the upper abdomen show surgical clips in the right mesentery. Gallbladder is surgically absent. Bone windows show no gross lytic or blastic osseous lesion. Impression: Essentially negative exam. No acute disease process seen in the chest. . Procedures Procedure Status Date Provider(s) Esophagogastroduodenoscopy (EGD) with closed biopsy completed 11/25/13 KECIA PIÑA MD Colonoscopy completed 11/25/13 KECIA PIÑA MD Encounters Encounter Location Date/Time Registered [facility] 08/28/13 8:26am Registered [facility] 08/27/13 8:29am
--- OUTSIDE RECORDS SUMMARY | 2016-06-24 21:43 | XMS REPORT | Continuity of Care Document ---
Author Author [facility] Organization [facility] Address Unknown Phone Unavailable Allergies Active Description Code Type Severity Reaction Onset Reported/Identified Relationship to Patient Clinical Status Yes Ativan Drug Allergy Hallucinations 01/21/2012 Yes No Known Food Allergies Food Allergy 01/21/2012 Yes NSAIDS (Non-Steroidal Anti-Inf Drug Allergy Hx Bleeding Ulcer 01/21/2012 Yes Penicillins Drug Allergy Eczema (rash) 01/21/2012 Medications Problems Procedures Results Encounters ACCT No. Visit Date/Time Discharge Status Pt. Type Provider Facility Loc./Unit Complaint [id number] 01/22/2012 05:43:00 2011 11:11:00 DIS Inpatient Alex Fair MD [facility] on [address]
--- OUTSIDE RECORDS SUMMARY | 2016-06-24 21:43 | XMS REPORT | Continuity of Care Document ---
Author Author [facility] Organization [facility] Address Unknown Phone Unavailable Support Name Relationship Address Phone AMNA MANJARREZ MD Caregiver [address] [place] [address] Unavailable JANIS RODRIGUEZ DO Caregiver [address] [place] [address] Unavailable CYNDI ARIAS Next Of Kin [address] [place] [address] C Insurance Providers Guarantor Stella Diaz Address [address] [place] [address] Email DENIED/NO TO PT [facility] Policy Number [id number] Subscriber's Name Stella Diaz Relationship 18 Self Group Number [id number] Effective Date 08 Payer Medicare Policy Number [id number] Subscriber's Name Stella Diaz Relationship 18 Self [...] Mg Oral Give With Breakfast 07/20/15 Hydrocodone/Acetaminophen ([place] 10-325 Tablet) 1 Each Tablet 1 Tab [...] Transderm Twice A Day 12/24/10 Discontinued Fish Oil/[place]-3 Fatty Acids (Fish Oil 1,000 Mg Capsule) [...] Fluticasone Propionate (Fluticasone Prop 50 Mcg/Actuation Nasal [place]) 120 [place]/16 G [place], 2 SprayNasal Daily 11/24/13 Discontinued Gabapentin (Neurontin) [...] MD Order Date: 2 Days Address: [address] [place] [address] Note: Care Plan and Goals Physician Care [...] Vital Signs Vital Response Date/Time Temperature (Fahrenheit) 97.6 deg F (96.8 - 99.1) 01/10/2016 11:20am Temperature (Calculated Celsius) 36.12849 degrees C (36.0 - 37.3) 01/10/2016 11:20am Pulse Rate (adult) 51 bpm (60 - 100) 01/10/2016 2:51pm Respiratory Rate 18 breaths/min (10 - 20) 01/10/2016 2:49pm O2 Sat by Pulse Oximetry 95 % (90 - 100) 01/10/2016 2:51pm Oxygen Delivery Method Room Air 12/29/2015 12:09pm Oxygen Flow Rate 2.00 L/min 11/17/2015 6:50pm Blood Pressure 143/72 mm Hg 01/10/2016 2:51pm Blood Pressure Source Automatic Cuff 12/29/2015 12:09pm Height (Feet) 5 feet 01/10/2016 11:20am Height (Inches) 4.00 inches 01/10/2016 11:20am Weight (Kilograms) 76.800 kg 01/10/2016 11:20am Body Mass Index (BMI) 29.0 01/10/2016 11:20am Results Laboratory Results Test Name Result Units Flags Reference Collection Date/Time Result Date/ Time Comments Neutrophils % (Manual) 40.0 % 33-66 12/29/2015 11:33am 12/29/2015 11: 52am Band Neutrophils % 1.0 % 0-6 12/29/2015 11:33am 12/29/2015 11:52am Lymphocytes % (Manual) 35.0 % 23-45 12/29/2015 11:33am 12/29/2015 11: 52am Monocytes % (Manual) 10.0 % H 0-9.0 12/29/2015 11:33am 12/29/2015 11: 52am Eosinophils % (Manual) 2.0 % 0-4 12/29/2015 11:33am 12/29/2015 11:52am Basophils % (Manual) 1.0 % 0-2 12/29/2015 11:33am 12/29/2015 11:52am Reactive Lymphocytes % 11.0 % H 0-0 12/29/2015 11:33am 12/29/2015 11: 52am Band Neutrophils # 0.0 T/MM3 12/29/2015 11:33am 12/29/2015 11:52am Absolute Neutrophils (Manual) 1.7 T/MM3 L 1.8-7.7 12/29/2015 11:33am 12/2015 11:52am Lymphocytes # (Manual) 1.5 T/MM3 1-4.8 12/29/2015 11:33am 12/29/2015 11 :52am Monocytes # (Manual) 0.4 T/MM3 0-0.8 12/29/2015 11:33am 12/29/2015 11: 52am Eosinophils # (Manual) 0.1 T/MM3 0-0.5 12/29/2015 11:33am 12/29/2015 11 :52am Basophils # (Manual) 0.0 T/MM3 0-0.2 12/29/2015 11:33am 12/29/2015 11: 52am Reactive Lymphocytes # 0.5 T/MM3 H 0-0 12/29/2015 11:33am 12/29/2015 11: 52am Red Cell Morphology Comment ABNORMAL 12/29/2015 11:33am 12/29/2015 11:52am Anisocytosis 1+ 12/29/2015 11:33am 12/29/2015 11:52am Poikilocytosis 1+ 12/29/2015 11:33am 12/29/2015 11:52am Hypochromasia 1+ 10/27/2015 9:49am 10/27/2015 10:58am Ovalocytes 1+ 12/29/2015 11:33am 12/29/2015 11:52am Stomatocytes 1+ 12/29/2015 11:33am 12/29/2015 11:52am C-Reactive Protein < 5.0 MG/L 0-9 12/29/2015 11:33am 12/29/2015 11: 52am Erythrocyte Sedimentation Rate 10 mm/h 0-23 12/29/2015 11:33am 2015 10:32pm Sedimentation Rate performed at [facility], [address] [place] [address] Qualification Engineer Magda Espinoza, Plasma Lactate 1.1 MMOL/L 0.6-2.2 11/17/2015 2:19pm 11/17/2015 2:34pm Procalcitonin 0.53 NG/ML 11/17/2015 2:05pm 11/17/2015 2:53pm PCT </= 0.5 ng/mL - sepsis not likely; PCT >0.5 and </=2 ng/mL - sepsis possible; PCT >2 ng/mL - sepsis likely; PCT >/=10 ng/mL - systemic inflammatory response - sepsis or septic shock highly indicated. Adenovirus (PCR) NEGATIVE NEGATIVE 11/17/2015 5:20pm 11/17/2015 6: 48pm Coronavirus Type 229E (PCR) NEGATIVE NEGATIVE 11/17/2015 5:20pm 11/16 6:48pm Coronavirus Type HKU1 (PCR) NEGATIVE NEGATIVE 11/17/2015 5:20pm 11/16 6:48pm Coronavirus Type NL63 (PCR) NEGATIVE NEGATIVE 11/17/2015 5:20pm 11/16 6:48pm Coronavirus Type OC43 (PCR) NEGATIVE NEGATIVE 11/17/2015 5:20pm 11/16 6:48pm Human Metapneumovirus (PCR) NEGATIVE NEGATIVE 11/17/2015 5:20pm 11/16 6:48pm Enterovirus/Rhinovirus (PCR) NEGATIVE NEGATIVE 11/17/2015 5:20pm 6:48pm Influenza Virus Type A (PCR) NEGATIVE NEGATIVE 11/17/2015 5:20pm 6:48pm Influenza Virus Type B (PCR) NEGATIVE NEGATIVE 11/17/2015 5:20pm 6:48pm Parainfluenza Type 1 (PCR) NEGATIVE NEGATIVE 11/17/2015 5:20pm 2015 6:48pm Parainfluenza Type 2 (PCR) NEGATIVE NEGATIVE 11/17/2015 5:20pm 2015 6:48pm Parainfluenza Type 3 (PCR) NEGATIVE NEGATIVE 11/17/2015 5:20pm 2015 6:48pm Parainfluenza Type 4 (PCR) NEGATIVE NEGATIVE 11/17/2015 5:20pm 2015 6:48pm Respiratory Syncytial Virus (PCR) NEGATIVE NEGATIVE 11/17/2015 5:20pm 11/17/2015 6:48pm Bordetella parapertussis DNA (PCR) NEGATIVE NEGATIVE 11/17/2015 5: 20pm 11/17/2015 6:48pm Chlamydia pneumoniae DNA (PCR) NEGATIVE NEGATIVE 11/17/2015 5:20pm 6:48pm Mycoplasma pneumoniae (PCR) NEGATIVE NEGATIVE 11/17/2015 5:20pm 11/16 6:48pm White Blood Count 7.2 T/MM3 4.5-11.0 01/10/2016 12:01pm 01/10/2016 12: 16pm Red Blood Count 4.51 M/MM3 4.00-5.20 01/10/2016 12:01pm 01/10/2016 12: 16pm Hemoglobin 12.1 GM/DL 12-16 01/10/2016 12:01pm 01/10/2016 12:16pm Hematocrit 39.5 % 36-46 01/10/2016 12:01pm 01/10/2016 12:16pm Mean Corpuscular Volume 87.6 UM3 80-100 01/10/2016 12:01pm 01/10/2016 12:16pm Mean Corpuscular Hemoglobin 26.8 UUG 26-34 01/10/2016 12:01pm 2015 12:16pm Mean Corpuscular Hemoglobin Concent 30.6 GM/DL L 31-37 01/10/2016 12: 01pm 01/10/2016 12:16pm RDW Standard Deviation 47.8 FL 36.9-50.2 01/10/2016 12:01pm 01/10/2016 12:16pm Platelet Count 265 T/MM3 130-400 01/10/2016 12:01pm 01/10/2016 12:16pm Mean Platelet Volume 11.0 UM3 9.4-12.4 01/10/2016 12:01pm 01/10/2016 12 :16pm Neutrophils (%) (Auto) 48.4 % 33-66 01/10/2016 12:01pm 01/10/2016 12: 16pm Lymphocytes (%) (Auto) 39.6 % 23-45 01/10/2016 12:01pm 01/10/2016 12: 16pm Monocytes (%) (Auto) 9.4 % H 0-9.0 01/10/2016 12:01pm 01/10/2016 12: 16pm Eosinophils (%) (Auto) 1.9 % 0-4 01/10/2016 12:0101/10/2016 12:16pm Basophils (%) (Auto) 0.4 % 0-2 01/10/2016 12:01pm 01/10/2016 12:16pm Immature Granulocyte % (Auto) 0.3 % 0.0-0.5 01/10/2016 12:012015 12:16pm Absolute Neutrophils (auto) 3.5 T/MM3 1.8-7.7 01/10/2016 12:01pm 2015 12:16pm Absolute Lymphocytes (auto) 2.9 T/MM3 1-4.8 01/10/2016 12:01pm 2015 12:16pm Absolute Monocytes (auto) 0.7 T/MM3 0-0.8 01/10/2016 12:01pm 2015 12:16pm Absolute Eosinophils (auto) 0.1 T/MM3 0-0.5 01/10/2016 12:01pm 2015 12:16pm Absolute Basophils (auto) 0.0 T/MM3 0-0.2 01/10/2016 12:01pm 2015 12:16pm Absolute Immature Granulocyte (auto 0.02 T/MM3 0.00-0.03 01/10/2016 12: 0101/10/2016 12:16pm Icterus Index < 2 0-7 01/10/2016 12:0101/10/2016 12:24pm Chemistry Specimen Hemolysis < 15 0-25 01/10/2016 12:0101/10/2016 12:24pm 0-25: Specimen Exhibited No Hemolysis. Turbidity < 20 0-20 01/10/2016 12:0101/10/2016 12:24pm Sodium Level 137 MEQ/L 134-144 01/10/2016 12:0101/10/2016 12:24pm Potassium Level 3.6 MEQ/L 3.6-5 01/10/2016 12:0101/10/2016 12:24pm Chloride Level 95 MEQ/L L 98-107 01/10/2016 12:0101/10/2016 12:24pm Carbon Dioxide Level 28 MEQ/L 22-30 01/10/2016 12:0101/10/2016 12: 24pm Anion Gap 14 MEQ/L 5-15 01/10/2016 12:0101/10/2016 12:24pm Blood Urea Nitrogen 17.0 MG/DL 7-17 01/10/2016 12:0101/10/2016 12: 24pm Creatinine 1.2 MG/DL 0.7-1.2 01/10/2016 12:0101/10/2016 12:24pm BUN/Creatinine Ratio 14 RATIO 6-26 01/10/2016 12:0101/10/2016 12: 24pm Glomerular Filtration Rate Calc 44 01/10/2016 12:0101/10/2016 12 :24pm Glucose Level 101 MG/DL 65-110 01/10/2016 12:0101/10/2016 12:24pm Calculated Osmolality 266 MOSM/KG 261-280 01/10/2016 12:012015 12:24pm Calcium Level 10.2 MG/DL 8.4-10.2 01/10/2016 12:0101/10/2016 12: 24pm Total Bilirubin 0.40 MG/DL 0.20-1.30 01/10/2016 12:0101/10/2016 12: 24pm Alkaline Phosphatase 93 U/L 38-126 01/10/2016 12:0101/10/2016 12: 24pm Total Protein 8.0 G/DL 6.3-8.2 01/10/2016 12:01pm 01/10/2016 12:24pm Albumin 4.5 G/DL 3.5-5.0 01/10/2016 12:01pm 01/10/2016 12:24pm Globulin 3.5 G/DL 2.4-3.6 01/10/2016 12:01pm 01/10/2016 12:24pm Albumin/Globulin Ratio 1.3 RATIO 1.1-2.2 01/10/2016 12:01pm 01/10/2016 12:24pm Aspartate Amino Transf (AST/SGOT) 21 U/L 14-36 01/10/2016 12:01pm 01/09 12:24pm Alanine Aminotransferase (ALT/SGPT) 27 U/L 9-52 01/10/2016 12:01pm 12:24pm Lipase 70 U/L 23-300 01/10/2016 12:01pm 01/10/2016 12:24pm Urine Collection Type CLEANCATCH-MIDSTREAM 01/10/2016 2:22pm 2015 2:29pm Urine Color YELLOW YELLOW 01/10/2016 2:22pm 01/10/2016 2:29pm Urine Turbidity CLEAR CLEAR 01/10/2016 2:22pm 01/10/2016 2:29pm Urine Specific [place] 1.010 L 1.015-1.025 01/10/2016 2:22pm 2015 2:29pm Urine pH 5.5 5.0-8.0 01/10/2016 2:22pm 01/10/2016 2:29pm Urine Leukocyte Esterase NEGATIVE NEGATIVE 01/10/2016 2:22pm 2015 2:29pm Urine Nitrite NEGATIVE NEGATIVE 01/10/2016 2:22pm 01/10/2016 2:29pm Urine Protein NEGATIVE NEGATIVE 01/10/2016 2:22pm 01/10/2016 2:29pm Urine Glucose (UA) NEGATIVE NEGATIVE 01/10/2016 2:22pm 01/10/2016 2: 29pm Urine Ketones 1+ A NEGATIVE 01/10/2016 2:22pm 01/10/2016 2:29pm Urine Urobilinogen 0.2 EU/DL NORMAL 01/10/2016 2:22pm 01/10/2016 2: 29pm Urine Bilirubin NEGATIVE NEGATIVE 01/10/2016 2:22pm 01/10/2016 2: 29pm Urine Blood NEGATIVE NEGATIVE 01/10/2016 2:22pm 01/10/2016 2:29pm Urinalysis Comment MICROSCOPIC NOT IND. 01/10/2016 2:22pm 2015 2:29pm Microbiology Results Procedure Source Organism/Result Collection Date/Time Result Date/Time Result Status Blood Culture Peripheral/Iv Start NO GROWTH AFTER 5 DAYS 11/17/2015 2:19pm 11/22/2015 2:21pm Final Procedures Procedure Status Date Provider(s) ROUTINE VENIPUNCTURE Completed 11/17/15 INSERT BLADDER CATHETER Completed 11/17/15 EDDIE SUAREZ MD CHEST X-RAY 2VW FRONTAL&LATL Completed 11/17/15 COMPREHEN METABOLIC PANEL Completed 11/17/15 URINALYSIS AUTO W/O SCOPE Completed 11/17/15 ASSAY OF LACTIC ACID Completed 11/17/15 PROCALCITONIN (PCT) Completed 11/17/15 COMPLETE CBC W/AUTO DIFF WBC Completed 11/17/15 BLOOD CULTURE FOR BACTERIA Completed 11/17/15 BLOOD CULTURE FOR BACTERIA Completed 11/17/15 CHYLMD PNEUM DNA AMP PROBE Completed 11/17/15 M.PNEUMON DNA AMP PROBE Completed 11/17/15 RESP VIRUS 12-25 TARGETS Completed 11/17/15 DETECT AGENT NOS DNA AMP Completed 11/17/15 HYDRATE IV INFUSION ADD-ON Completed 11/17/15 HYDRATE IV INFUSION ADD-ON Completed 11/17/15 HYDRATE IV INFUSION ADD-ON Completed 11/17/15 HYDRATE IV INFUSION ADD-ON Completed 11/17/15 THER/PROPH/DIAG IV INF INIT Completed 11/17/15 TX/PRO/DX INJ NEW DRUG ADDON Completed 11/17/15 TX/PRO/DX INJ NEW DRUG ADDON Completed 11/17/15 TX/PRO/DX INJ SAME DRUG PAPER TUBE GRADER Completed 11/17/15 EMERGENCY DEPT VISIT Completed 11/17/15 [id number] ITEM OR SERVICE Completed 11/17/15 524742"INJECTION, CEFTRIAXONE SODIUM, PER 250 MG" Completed 11/17/15 670136"INJECTION, HYDROMORPHONE, UP TO 4 MG" Completed 11/17/15 946554"INJECTION, HYDROMORPHONE, UP TO 4 MG" Completed 11/17/15 799240"INJECTION, HEPARIN SODIUM, (HEPARIN LOCK FLUSH), PER Completed 047405"INJECTION, ONDANSETRON HYDROCHLORIDE, PER 1 MG" Completed 11/17/15 820947"INFUSION, NORMAL SALINE SOLUTION , 1000 CC" Completed 11/17/15 439148"INFUSION, NORMAL SALINE SOLUTION , 1000 CC" Completed 11/17/15 018016"INFUSION, NORMAL SALINE SOLUTION , 250 CC" Completed 11/17/15 ROUTINE VENIPUNCTURE Completed 11/20/15 ROUTINE VENIPUNCTURE Completed [...] ADDON Completed 11/20/15 TX/PRO/DX INJ SAME DRUG PAPER TUBE GRADER Completed 11/20/15 TX/PRO/DX INJ SAME DRUG PAPER TUBE GRADER Completed 11/20/15 [id number] ITEM OR SERVICE Completed 11/20/15 [id number] ITEM OR SERVICE Completed 11/20/15 107313AFD-BUPQENQ ITEM OR SERVICE Completed 11/20/15 292950QID-UICULXD ITEM OR SERVICE Completed 11/20/15 841253UNW-LIJKSYA ITEM OR SERVICE Completed 11/20/15 562125JUF-MXYYQOA ITEM OR SERVICE Completed 11/20/15 275729QAK-UBPOZEG ITEM OR SERVICE Completed 11/20/15 290374ZKZ-GNJDORX ITEM OR SERVICE Completed 11/20/15 743377NJV-POIUQZV ITEM OR SERVICE Completed 11/20/15 021516UTH-NFNDXWG ITEM OR SERVICE Completed 11/20/15 816369LNQ-IIWZOZD ITEM OR SERVICE Completed 11/20/15 188895"INJECTION, PANTOPRAZOLE SODIUM, PER VIAL" Completed 11/20/15 132652"INJECTION, PANTOPRAZOLE SODIUM, PER VIAL" Completed 11/20/15"INJECTION, PANTOPRAZOLE SODIUM, PER VIAL" Completed 11/20/15"HOSPITAL OBSERVATION SERVICE, PER HOUR" Completed 11/20/15"HOSPITAL OBSERVATION SERVICE, PER HOUR" Completed 11/20/15"HOSPITAL OBSERVATION SERVICE, PER HOUR" Completed 11/20/15"HOSPITAL OBSERVATION SERVICE, PER HOUR" Completed 11/20/15707787NAAMIO ADMISSION OF PATIENT FOR HOSPITAL OBSERVATION C Completed "INJECTION, HEPARIN SODIUM, (HEPARIN LOCK FLUSH), PER Completed "INJECTION, ONDANSETRON HYDROCHLORIDE, PER 1 MG" Completed 11/20/15"INJECTION, ONDANSETRON HYDROCHLORIDE, PER 1 MG" Completed 11/20/15"INJECTION, ONDANSETRON HYDROCHLORIDE, PER 1 MG" Completed 11/20/15"INJECTION, ONDANSETRON HYDROCHLORIDE, PER 1 MG" Completed 11/20/15"INJECTION, METOCLOPRAMIDE HCL, UP TO 10 MG" Completed 11/20/15 HT MUSCLE IMAGE SPECT MULT Completed 12/19/15 CARDIOVASCULAR STRESS TEST Completed 12/19/15"TECHNETIUM TC-99M TETROFOSMIN, DIAGNOSTIC, PER STUDY Completed LEXISCAN .4MG/5ML - REGADENOSON Completed 12/19/15 Encounters Encounter Location Arrival/Admit Date Discharge/Depart Date Attending Provider Departed Emergency Room [facility] 01/10/16 11:51am 01/10/16 2: 55pm JANIS RODRIGUEZ DO Registered [facility] 12/29/15 11:00am RICHIE CORBIN Registered [facility] 12/19/15 8:29am NELI NOYOLA MD Discharged Inpatient (obs) [facility] 11/20/15 12:18pm 11/22/15 6 :30pm AMNA MANJARREZ MD Departed Emergency Room [facility] 11/17/15 1:45pm 11/17/15 6: 50pm EDDIE SUAREZ MD Recent Diagnosis
--- NOTE | 2016-06-24 22:26 | ERPDOC ---
Departure Disposition Decision Date: June 25, 2016 Disposition Decision Time: 00:11 Disposition: 01 DISCHARGED HOME, SELF-CARE Impression Impression Impression: Primary Impression: Orthostasis Additional Impression: Bradycardia Severity: Moderate Condition: Improved Seen By: Physician only Referrals: AMNA MANJARREZ MD (Family) Patient Instructions: Dizziness (ED), Fall Prevention (ED) Problems/Meds/Labs Reviewed?: Yes Medications reviewed and manag: Yes Additional Instructions: Rise from lying to sitting very slowly, please wait 30 seconds before standing up. When standing up, please wait before walking. Your labs were appropriate, but your blood pressure dropped significantly when you went from lying to sitting. You need to increase fluids and get up very slowly. Follow up care ordered?: Yes Mental Status: Alert HPI - Syncope General Chief Complaint: Fall Stated Complaint: FALL,WEAKNESS Time Seen by Provider: 22:07 HPI - Syncope Initial Comments 75-year-old female with fall. Patient is currently being worked up for bradycardia. She has been seeing Dr. Juarez and is wearing a director of cardiac cath lab currently. When she stands up quickly, she becomes lightheaded and has passed out on several occasions. She has been having issues with bradycardia. Was taking metoprolol, but stopped that last ., 4 days ago. She has no injury from the fall. She's had no dysuria or hesitancy or urgency. No fevers. No nausea or vomiting. She does feel like she is a little bit dehydrated. Allergies: Coded Allergies: rosuvastatin calcium (Verified Allergy, Intermediate, "MADE ME SICK", ) Penicillins (Verified Allergy, Mild, RASH, 06/24/16) lorazepam (Verified Allergy, Unknown, 06/24/16) sulfamethoxazole (Verified Allergy, Unknown, VOMITING, 06/24/16) trimethoprim (Verified Allergy, Unknown, VOMITING, 06/24/16) Past History Past Medical History Metabolic: hypercholesterolemia, hypertension Cardiac: CAD, [place], angina Respiratory: pulmonary embolus GI: GERD, ulcers Neurological: fibromyalgia Musculoskeletal: back pain, rheumatoid arthritis Hematologic: anemia Psychological: anxiety, bipolar Surgical History General: EGD, appendix, back, colonoscopy, other Cardiac: cardiac cath, cardiac stent Reproductive/: hysterectomy Joint: knee Family History Family PMH: FOUND: CHF, CVA, cancer, diabetes, hypertension Vaccines Hx Influenza Vaccination: Yes (11/20/15) Hx Pneumococcal Vaccination: Yes (Oct) Social History Smoking Status: Never smoker Does patient use chewing tobac: No Second Hand Exposure: No Substance Use Type: does not use Substance last used: prior to arrival Alcohol Intake: none Marital Status: Sexuality: male partner Housing: house Household Members: spouse Service: No Current Occupational Status: retired Occupational Hazard: No Advance Directives: Yes Full Code Record Review Pertinent history updated: Yes Review of Systems Cardiovascular Cardiac: see HPI Rhythm/Rate: see HPI Musculoskeletal General: see HPI All other Systems All Other Systems: Reviewed and Negative Physical Exam General General Nourishment: adult, thin Vitals and Pain First Documented Vital Signs Date Time Temp Pulse Resp B/P Pulse Ox O2 Delivery O2 Flow Rate FiO2 06/24/16 23:34 52 173/73 Weight: Kilograms: Height (feet): 5 Height (inches): 4.00 Triage Pain Scale: Normal Exams: Head: Normocephalic w/o trauma Chest/Resp: Clear all esquivel, with good airflow, and symmetry bilaterally CV: Regular rate and rhythm, without murmur or gallop, Pulses 2+ all extremities, capillary refill, <2 seconds all ext., no pedal edema noted Abdomen: Bowel sounds positive, soft, non-tender, non-distended, no hepatosplenomegaly, masses or bruits noted Neurologic: Patient is alert, and oriented, cranial nerves, motor/sensory/ cerebellar, exams w/o gross deficits, to observation Psychiatric: Patient exhibits, appropriate attention, emotion and affect Cardiovascular (brief) Comments Slightly bradycardic, 45-55 bpm. Differential Diagnoses Differential Diagnoses Considering: Other (hypotension, orthostatic hypotension, hypoglycemia, sepsis , bradycardia, sick sinus syndrome) Progress Results/Orders Orders Procedure Category Date Status Time Iv Lock (Ed Only) EDM 06/24/16 Transmitted 22:27 Orthostatic Bp/Pulse EDM 06/24/16 Transmitted 22:27 Oxygen Administration EDM 06/24/16 Transmitted 22:27 Cbc W/Auto LAB 06/24/16 Complete Diff-Reflex Manual 22:27 Cmp - Comprehensive LAB 06/24/16 Complete Metabolic 22:27 Troponin I W LAB 06/24/16 Complete Hemolysis Index 22:27 Ua, Dip Wreflex LAB 06/24/16 Logged Microsc & Coffee Farmer 22:27 EKG EKG 06/24/16 Taken 22:27 Chest, Pa & Lateral RAD 06/24/16 Taken 22:27 Normal Saline (Normal PHA 06/24/16 Complete Saline Iv) 22:27 Tsh With Reflex T4 LAB 06/24/16 Complete Free 22:27 Lab Results Laboratory Tests Test 06/24/16 22:40 White Blood Count 6.6T/MM3 Red Blood Count 4.10M/MM3 Hemoglobin 10.6GM/DL Hematocrit 35.1% Mean Corpuscular Volume 85.6UM3 Mean Corpuscular Hemoglobin 25.9UUG Mean Corpuscular Hemoglobin Concent 30.2GM/DL RDW Standard Deviation 44.7FL Platelet Count 237T/MM3 Mean Platelet Volume 11.4UM3 Immature Granulocyte % (Auto) 0.2% Neutrophils (%) (Auto) 37.7% Lymphocytes (%) (Auto) 36.9% Monocytes (%) (Auto) 7.6% Eosinophils (%) (Auto) 16.5% Basophils (%) (Auto) 1.1% Absolute Immature Granulocyte (auto 0.01T/MM3 Absolute Neutrophils (auto) 2.5T/MM3 Absolute Lymphocytes (auto) 2.4T/MM3 Absolute Monocytes (auto) 0.5T/MM3 Absolute Eosinophils (auto) 1.1T/MM3 Absolute Basophils (auto) 0.1T/MM3 Turbidity < 20 Sodium Level 145MEQ/L Potassium Level 4.2MEQ/L Chloride Level 105MEQ/L Carbon Dioxide Level 27MEQ/L Anion Gap 13MEQ/L Blood Urea Nitrogen 13.0MG/DL Creatinine 0.7MG/DL Glomerular Filtration Rate Calc 82 BUN/Creatinine Ratio 19RATIO Glucose Level 122MG/DL Calculated Osmolality 280MOSM/KG Calcium Level 9.8MG/DL Total Bilirubin 0.40MG/DL Icterus Index < 2 Aspartate Amino Transf (AST/SGOT) 21U/L Alanine Aminotransferase (ALT/SGPT) 28U/L Alkaline Phosphatase 77U/L Troponin I < 0.012ng/ml Total Protein 6.7G/DL Albumin 4.0G/DL Globulin 2.7G/DL Albumin/Globulin Ratio 1.5RATIO Thyroid Stimulating Hormone (TSH) 2.00MIU/L Chemistry Specimen Hemolysis 24 Medications Current ED Medications Sodium Chloride (Normal Saline IV) 1,000 ml @ 1,000 mls/hr Q1H ONCE IV Last administered on 06/24/16t 23:15; Start 06/24/16 at 22:27; Stop 06/24/16 at 23:26; Status DC Progress Progress CBC CMP troponin and TSH returned normal. Patient had no recurrent episodes while in the ED. She did continue to run bradycardic. She had definite orthostasis on exam. 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 However seems to be very cautious rising quickly. In Fact she is going to sit for 30 seconds before standing up, she is agreed to do this now. She will also keep a diary of any near-syncopal or syncopal episodes that she has to document whether she got up too quickly. She'll follow-up with Dr. Juarez on Friday after her tilt table test. Patient was given IV fluids, 600 ML's, prior to discharge. She will work on staying hydrated as well. KEN LOJA MD June 24, 2016 22:26
[2016-06-24] MEDS ORDERED: NORMAL SALINE 1,000 ML IV ONE (22:27)
--- OUTSIDE RECORDS SUMMARY | 2016-06-24 22:36 | XMS REPORT | Continuity of Care Document ---
Author Author [facility] Organization [facility] Address Unknown Phone Unavailable Support Name Relationship Address Phone AMNA MANJARREZ MD Caregiver [address] [place], [place] [phone] ÁLVARO PHILLIPS MD Caregiver [address] [place] [address] [place] [address] [phone] CYNDI ARIAS Next Of Kin [address] [place], [place] [id number] Insurance Providers Payer Name Policy Number Subscriber Name Relationship Medicare [id number] Stella Diaz 19 Self [facility] [id number] Stella Diaz 19 Self Advance Directives Directive [...] TWICE A DAY 12/24/10 12/20/11 Discontinued Fish Oil/[place]-3 Fatty Acids 2 Cap PO DAILY 12/24/10 [...] PO DAILY 11/24/13 Active Fluticasone Propionate 2 [place] DAILY 16 Qty 11/24/13 Active Lutein [...] F (96.8 - 99.1) Temperature (Calculated Celsius) 36.43237 degrees C (36.0 - 37.3) Temperature Source [...] 28, 2013 9:51am LAB TEST FORM REQUEST [id number] - Lipase January 26, 2011 9:05am 269 [...] N 0-9.0 COMMENT PRE -OP WILL CALL [id number] Natriuretic Peptide April 13, 2013 10:35pm 66 [...] Has specimen been collected/obtained? Y Urine Specific Ram[place] April 15, 2013 4:30pm 1.015 - Has [...]
--- OUTSIDE RECORDS SUMMARY | 2016-06-24 22:37 | XMS REPORT | Continuity of Care Document ---
Author Author LIVE Organization LIVE Address Unknown Phone Unavailable Support Name Relationship Address Phone AMNA MANJARREZ MD Caregiver [address] [place], [place] [phone] KECIA PIÑA MD Caregiver [address] [facility] [address] [place] [phone] CYNDI ARIAS Next Of Kin [address] [place] [address] Insurance Providers Payer Name Policy Number Subscriber Name Relationship Medicare [id number] Stella Diaz [address] [facility] [id number] Stella Diaz 19 Self Advance Directives Directive [...] TWICE A DAY 12/24/10 12/20/11 Discontinued Fish Oil/[place]-3 Fatty Acids 2 Cap PO DAILY 12/24/10 [...] PO BID PRN 60 Qty 11/24/13 Active [place]-3 Fatty Acids/Fish Oil 1,000 Mg PO DAILY 11/24/13 Active Fluticasone Propionate 2 [place] NS DAILY 16 Qty 11/24/13 Active Lutein [...] F (96.8 - 99.1) Temperature (Calculated Celsius) 36.38352 degrees C (36.0 - 37.3) Temperature Source [...] 10 MEQ/L N 5-15 CALL RESULTS TO [facility] Arterial Blood Base Excess January 29, [...] 26 RATIO N 6-26 CALL RESULTS TO [facility] Band Neutrophils # January 29, 2011 [...] 37.0 MG/DL H 7-17 [facility] Calcium Level August 28, 2013 8:32am 10.0 MG/DL N 8.4-10.2 [facility] Calculated Osmolality August 28, 2013 8:32am 282 MOSM/KG H 261-280 [facility] Carbon Dioxide Level August 28, 2013 8:32am 24 MEQ/L N 22-30 [facility] Chloride Level August 28, 2013 8:32am 108 MEQ/L H 98-107 CALL RESULTS TO [facility] Cholesterol Level April 16, 2013 5:30am 264 MG/DL H 132-199 Cholesterol/HDL Ratio April 16, 2013 5:30am 4.8 RATIO H 0-4.0 Conjugated Bilirubin December 24, 2010 2:05pm 0.00 MG/DL N 0.00-0.30 Creatine Kinase MB April 15, 2013 1:40pm < 0.2 NG/ML 0-3.4 Creatinine August 28, 2013 8:32am 1.4 MG/DL H 0.7-1.2 CALL RESULTS TO [facility] D-Dimer April 13, 2013 10:35pm 741 [...] 94 MG/DL N 65-110 CALL RESULTS TO [facility] Hematocrit April 15, 2013 1:40pm 35.4 [...] 5.3 MEQ/L H 3.6-5 CALL RESULTS TO [facility] Prothromb Time International Ratio April 13, [...] 142 MEQ/L N 134-144 CALL RESULTS TO [facility] Thyroid Stimulating Hormone (TSH) April 15, [...] Has specimen been collected/obtained? Y Urine Specific [place] April 15, 2013 4:30pm 1.015 - Has [...] 28, 2013 9:51am LAB TEST FORM REQUEST [id number] - HDL Cholesterol Direct April 16, 2013 5:30am 55 MG/DL N 40-60 Turbidity August 28, 2013 8:32am < 20 0-20 CALL RESULTS TO [facility] Glomerular Filtration Rate Calc August 28, 2013 8:32am 37 - CALL RESULTS TO [facility] Immature Granulocyte # (Auto) April 15, 2013 1:40pm 0.02 T/MM3 N 0.00 -0.03 Immature Granulocyte % (Auto) April 15, 2013 1:40pm 0.3 % N 0.0-0.5 Arterial Blood pO2 at Patient Temp January 29, 2011 11:50am 95 MMHG N 80-100 Icterus Index August 28, 2013 8:32am < 2 0-7 CALL RESULTS TO [facility] IA-Bcf-D-Type Natriuretic Peptide April 13, 2013 10:35pm 65 [...] 2008 5:10pm Name: STELLA DIAZ Unit #: [id number] : 1940 Sex: F Loc / c: [facility] DOS: 08/27/13 Signed Report #: [id number] DIAGNOSTIC IMAGING REPORT TYPE OF EXAM: CT [...] PIÑA MD Encounters Encounter Location Date/Time Registered [facility] 08/28/13 8:26am Registered [facility] 08/27/13 8:29am
--- OUTSIDE RECORDS SUMMARY | 2016-06-24 22:37 | XMS REPORT | Continuity of Care Document ---
Author Author [facility] L[facility] Organization [facility] LIVE Address Unknown Phone Unavailable Support Name Relationship Address Phone AMNA WEINBERG MD Caregiver [address] [place] [address] SHANTELL JACKSON MD Caregiver [facility] [address] [place] [address] Unavailable BRAD ALFREDO MD Caregiver [address] [place], [place] [phone] CYNDI ARIAS Next Of Kin [address] [place], [place] [address] C Insurance Providers Payer Name Policy Number Subscriber Name Relationship Medicare [id number] Mac Stella Angulo 19 Self [facility] [id number] Mac ChowcharleneStella K 19 Self Advance Directives [...] TWICE A DAY 12/24/10 12/20/11 Discontinued Fish Oil/[place]-3 Fatty Acids 2 Cap PO DAILY 12/24/10 [...] PO DAILY 11/24/13 Active Fluticasone Propionate 2 [place] NS DAILY 16 Qty 11/24/13 Active Lutein [...] F (96.8 - 99.1) Temperature (Calculated Celsius) 37.20687 degrees C (36.0 - 37.3) Temperature Source [...] 28, 2013 9:51am LAB TEST FORM REQUEST [id number] - Lipase February 27, 2014 8:14am 188 [...] 27, 2014 8:14am 6.5 % N 0-9.0 VR-Zto-C-Type Natriuretic Peptide April 13, 2013 10:35pm 65 [...] Has specimen been collected/obtained? Y Urine Specific [place] February 27, 2014 8:20am 1.010 L - [...] 2008 5:10pm Name: STELLA ZAZUETA Unit #: [id number] : 1940 Sex: F Loc / Svc: SRG DOS: 02/27/14 Signed Report #: [id number] DIAGNOSTIC IMAGING REPORT TYPE OF EXAM: CT [...] hemorrhage. There is a preliminary report by [employer]. . Procedures Procedure Status Date Provider(s) ROUTINE VENIPUNCTURE completed 12/29/13 INJECTION FOR BLADDER X-RAY completed 12/29/13 ÁLVARO PHILLIPS MD CYSTOSCOPY AND TREATMENT completed 12/29/13 ÁLVARO PHILLIPS MD CONTRAST X-RAY BLADDER completed 12/29/13 COMPREHEN METABOLIC PANEL completed 12/29/13 COMPLETE CBC W/AUTO DIFF WBC completed 12/29/13 [id number] ITEM OR SERVICE completed 12/29/13 [id number] ITEM OR SERVICE completed 12/29/13 [id number]-[id number] ITEM OR SERVICE completed 12/29/13 960062"INJECTION, FENTANYL CITRATE, 0.1 MG" completed 12/29/13 [id number]"INFUSION, NORMAL SALINE SOLUTION , 1000 CC" completed 12/29/13 009065"LOW OSMOLAR CONTRAST MATERIAL, 300-399 MG/ML IODINE C completed COMP SCREEN MAMMOGRAM ADD-ON completed 02/01/14885656"SCREENING MAMMOGRAPHY, PRODUCING DIRECT DIGITAL IMAGE completed Encounters Encounter Location Date/Time Discharged Inpatient [facility] 02/27/14 10:06am Registered Clinic [facility] 02/01/14 10:38am Recent Diagnosis Confusion Renal insufficiency Weakness Altered mental status
--- OUTSIDE RECORDS SUMMARY | 2016-06-24 22:37 | XMS REPORT | Continuity of Care Document ---
Author Author [facility] LIVE Organization [facility] LIVE Address Unknown Phone Unavailable Support Name Relationship Address Phone AMNA WEINBERG MD Caregiver [address] [place], [place] [phone] EDDIE SUAREZ MD Caregiver [address] [place] [address] [place] [phone] CYNDI ARIAS Next Of Kin [address] [place] [address] C Insurance Providers Payer Name Policy Number Subscriber Name Relationship Medicare [id number] Mac ChowStella viera [address] [facility] [id number] Mac ChowdStella Dang 19 Self Advance Directives [...] TWICE A DAY 12/24/10 12/20/11 Discontinued Fish Oil/[place]-3 Fatty Acids 2 Cap PO DAILY 12/24/10 [...] PO DAILY 11/24/13 Active Fluticasone Propionate 2 [place] NS DAILY 16 Qty 11/24/13 03/05/14 Discontinued [...] Weinberg Condition at time of discharge: Good Wound/Incision [...] F (96.8 - 99.1) Temperature (Calculated Celsius) 36.93001 degrees C (36.0 - 37.3) Pulse Rate [...] Has specimen been collected/obtained? Y Urine Specific [place] February 27, 2014 8:20am 1.010 L - [...] 28, 2013 9:51am LAB TEST FORM REQUEST [id number] - HDL Cholesterol Direct April 16, 2013 [...] February 27, 2014 5:50pm < 2 0-7 MJ-Fuz-D-Type Natriuretic Peptide April 13, 2013 10:35pm 65 [...] 2013 8:28am Name: STELLA ZAZUETA Unit #: [id number] : 1940 Sex: F Loc / Svc: SRG DOS: 02/27/14 Signed Report #: [id number] DIAGNOSTIC IMAGING REPORT TYPE OF EXAM: CT [...] hemorrhage. There is a preliminary report by [employer]. . Procedures Procedure Status Date Provider(s) ROUTINE VENIPUNCTURE completed 12/29/13 INJECTION FOR BLADDER X-RAY completed 12/29/13 ÁLVARO PHILLIPS MD CYSTOSCOPY AND TREATMENT completed 12/29/13 ÁLVARO PHILLIPS MD CONTRAST X-RAY BLADDER completed 12/29/13 COMPREHEN METABOLIC PANEL completed 12/29/13 COMPLETE CBC W/AUTO DIFF WBC completed 12/29/13 [id number] ITEM OR SERVICE completed 12/29/13 [id number] ITEM OR SERVICE completed 12/29/13 [id number] ITEM OR SERVICE completed 12/29/13 998089"INJECTION, FENTANYL CITRATE, 0.1 MG" completed 12/29/13 089385"INFUSION, NORMAL SALINE SOLUTION , 1000 CC" completed 12/29/13 [id number]"LOW OSMOLAR CONTRAST MATERIAL, 300-399 MG/ML IODINE C completed COMP SCREEN MAMMOGRAM ADD-ON completed 02/01/14 [id number]"SCREENING MAMMOGRAPHY, PRODUCING DIRECT DIGITAL IMAGE completed Encounters Encounter Location Date/Time Departed Emergency Room [facility] 03/05/14 1:53pm Discharged Inpatient [facility] 02/27/14 10:06am Registered Clinic [facility] 02/01/14 10:38am Recent Diagnosis
--- OUTSIDE RECORDS SUMMARY | 2016-06-24 22:38 | XMS REPORT | Continuity of Care Document ---
Author Author [facility] Organization [facility] Address Unknown Phone Unavailable Allergies Active Description [...] Status Pt. Type Provider Facility Loc./Unit Complaint [id number] 01/22/2012 05:43:00 2011 11:11:00 DIS Inpatient Alex Fair MD [facility] on [address]
[2016-06-24 22:53] LABS: BASOPHILS # (AUTO) 0.1 T/MM3 (0-0.2); BASOPHILS % (AUTO) 1.1 % (0-2); EOSINOPHILS # (AUTO) 1.1 T/MM3 (0-0.5); EOSINOPHILS % (AUTO) 16.5 % (0-4); HCT - HEMATOCRIT 35.1 % (36-46); HGB - HEMOGLOBIN 10.6 GM/DL (12-16); IMMATURE GRANULOCYTE # (AUTO) 0.01 T/MM3 (0.00-0.03); IMMATURE GRANULOCYTE % (AUTO) 0.2 % (0.0-0.5); LYMPHOCYTES # (AUTO) 2.4 T/MM3 (1-4.8); LYMPHOCYTES % (AUTO) 36.9 % (23-45); MEAN CORPUSCULAR HGB 25.9 UUG (26-34); MEAN CORPUSCULAR HGB CONC(MCHC 30.2 GM/DL (31-37); MEAN CORPUSCULAR VOLUME 85.6 UM3 (80-100); MEAN PLATELET VOLUME 11.4 UM3 (9.4-12.4); MONOCYTES # (AUTO) 0.5 T/MM3 (0-0.8); MONOCYTES % (AUTO) 7.6 % (0-9.0); NEUTROPHILS #(AUTO)-ABSOLUTE 2.5 T/MM3 (1.8-7.7); NEUTROPHILS % (AUTO) 37.7 % (33-66); WBC - WHITE BLOOD COUNT 6.6 T/MM3 (4.5-11.0)
--- NOTE | 2016-06-24 22:54 | NUR ---
XR PT LEAVES WITH IMAGING STAFF AT THIS TIME.
--- NOTE | 2016-06-24 23:07 | NUR ---
RETURN PT RETURNS TO ROOM.
[2016-06-24] MEDS ORDERED: PILO5TAB PO (23:19)
[2016-06-24] MEDS ORDERED: ABAT125S SQ (23:19)
[2016-06-24 23:25] LABS: ALBUMIN/GLOBULIN RATIO 1.5 RATIO (1.1-2.2); ALKALINE PHOSPHATASE 77 U/L (38-126); ALT (SGPT) 28 U/L (9-52); ANION GAP 13 MEQ/L (5-15); AST (SGOT) 21 U/L (14-36); BUN/CREATININE RATIO 19 RATIO (6-26); CALCIUM 9.8 MG/DL (8.4-10.2); CHLORIDE 105 MEQ/L (98-107); CO2 - CARBON DIOXIDE 27 MEQ/L (22-30); CREATININE 0.7 MG/DL (0.7-1.2); GLOMERULAR FILTRATION RATE 82; GLUCOSE 122 MG/DL (65-110); POTASSIUM 4.2 MEQ/L (3.6-5); SODIUM 145 MEQ/L (134-144); TOTAL PROTEIN 6.7 G/DL (6.3-8.2)
--- NOTE | 2016-06-25 00:25 | NUR ---
BR PT AMBULATES TO BR AT THIS TIME USING A WALKER WITH A STEADY GAIT.
[2016-06-25 00:54] VITALS: BP 147/69; PULSE 58; RESP 16; TEMP 98; O2SAT 94
--- NOTE | 2016-06-25 00:54 | NUR ---
DEPART PT IS DISCHARGED AT THIS TIME, INSTRUCTIONS ARE REVIEWED AND UNDERSTANDING IS VOICED. PT LEAVES VIA WHEELCHAIR TRANSPORT WITH HER FAMILY AT THIS TIME.
--- NOTE | 2016-06-25 08:08 | DI ---
LOCATION OF DICTATION: [facility] EXAM: CHEST, PA LATERAL HISTORY: ITS.REASON: syncope COMPARISON: January 10, 2016 FINDINGS: The heart size is normal. The mediastinal configuration is unremarkable. Right-sided chest port in place the tip of the catheter overlying the upper SVC. There are no consolidating opacities or pleural effusions. There is no evidence for a pneumothorax. There is cbny-dx-pfhhohea spondylosis of the thoracic spine. IMPRESSION: No acute cardiopulmonary abnormality is identified. .
== END 2016-06-25 00:54 | disposition home or self-care (01) ==
LOC: ED 21:37
DX: I95.1 Orthostatic hypotension (principal); R00.1 Bradycardia, unspecified; I10 Essential (primary) hypertension; E78.00 Pure hypercholesterolemia, unspecified; I25.10 Atherosclerotic heart disease of native coronary artery without angina pectoris; Z95.5 Presence of coronary angioplasty implant and graft; W19.XXXA Unspecified fall, initial encounter; Y93.89 Activity, other specified; Y92.9 Unspecified place or not applicable; Y99.8 Other external cause status
CPT/HCPCS: 71020; 80053; 84443; 84484; 85025; 93005; 96360; 99284; J7030

== ENCOUNTER 2016-07-10 12:08 | Observation (INO) | payer MEDICARE, BC ==
[~2016-07-10] VITALS: Ht 162.6 cm; Wt 71.8 kg
[~2016-07-10 12:08] MED LIST changes: +ABAT125S SQ; -HYDR-4078 PO; -HYDR25TA PO; -METO25TA6 PO; -ONDA4TAB7 PO; +PILO5TAB PO
--- OUTSIDE RECORDS SUMMARY | 2016-07-10 12:22 | XMS REPORT | Continuity of Care Document ---
Author Author [facility] Organization [facility] LIVE Address Unknown Phone Unavailable Support Name Relationship Address Phone AMNA MANJARREZ MD Caregiver [address] [place], [place] [phone] ÁLVARO PHILLIPS MD Caregiver [address] [place] [address] [place] [address] [phone] CYNDI ARIAS Next Of Kin [address], [place] [phone] Insurance Providers Payer Name Policy Number Subscriber Name Relationship Medicare [id number] Stella Diaz 19 Self [facility] [id number] Stella Diaz 19 Self Advance Directives Directive [...] TWICE A DAY 12/24/10 12/20/11 Discontinued Fish Oil/[place]-3 Fatty Acids 2 Cap PO DAILY 12/24/10 [...] PO DAILY 11/24/13 Active Fluticasone Propionate 2 [place] NS DAILY 16 Qty 11/24/13 Active Lutein [...] F (96.8 - 99.1) Temperature (Calculated Celsius) 36.30785 degrees C (36.0 - 37.3) Temperature Source [...] 28, 2013 9:51am LAB TEST FORM REQUEST [id number] - Lipase January 26, 2011 9:05am 269 [...] N 0-9.0 COMMENT PRE -OP WILL CALL PO-Qig-Z-Type Natriuretic Peptide April 13, 2013 10:35pm 65 [...] Has specimen been collected/obtained? Y Urine Specific [place] April 15, 2013 4:30pm 1.015 - Has [...]
--- OUTSIDE RECORDS SUMMARY | 2016-07-10 12:23 | XMS REPORT | Continuity of Care Document ---
Author Author [facility] L[facility] Organization [facility] Address Unknown Phone Unavailable Support Name Relationship Address Phone AMNA WEINBERG MD Caregiver [address] [place], [place] [phone] EDDIE SUAREZ MD Caregiver [address] [place] [address] [place] [phone] CYNDI ARIAS Next Of Kin [address] [place] [address] C Insurance Providers Payer Name Policy Number Subscriber Name Relationship Medicare [id number] Mac ChowStella viera 19 Self [facility] [id number] Mac ChowdStella Dang 19 Self Advance Directives [...] TWICE A DAY 12/24/10 12/20/11 Discontinued Fish Oil/[place]-3 Fatty Acids 2 Cap PO DAILY 12/24/10 [...] PO DAILY 11/24/13 Active Fluticasone Propionate 2 [place] NS DAILY 16 Qty 11/24/13 03/05/14 Discontinued [...] F (96.8 - 99.1) Temperature (Calculated Celsius) 36.83920 degrees C (36.0 - 37.3) Pulse Rate [...] Has specimen been collected/obtained? Y Urine Specific [place] February 27, 2014 8:20am 1.010 L - [...] 28, 2013 9:51am LAB TEST FORM REQUEST [id number] - HDL Cholesterol Direct April 16, 2013 [...] February 27, 2014 5:50pm < 2 0-7 YT-Nnf-I-Type Natriuretic Peptide April 13, 2013 10:35pm 65 [...] 2013 8:28am Name: STELLA ZAZUETA Unit #: [id number] : 1940 Sex: F Loc / Svc: SRG DOS: 02/27/14 Signed Report #: [id number] DIAGNOSTIC IMAGING REPORT TYPE OF EXAM: CT [...] hemorrhage. There is a preliminary report by [employer] . Procedures Procedure Status Date Provider(s) ROUTINE VENIPUNCTURE completed 12/29/13 INJECTION FOR BLADDER X-RAY completed 12/29/13 ÁLVARO PHILLIPS MD CYSTOSCOPY AND TREATMENT completed 12/29/13 ÁLVARO PHILLIPS MD CONTRAST X-RAY BLADDER completed 12/29/13 COMPREHEN METABOLIC PANEL completed 12/29/13 COMPLETE CBC W/AUTO DIFF WBC completed 12/29/13 [id number] ITEM OR SERVICE completed 12/29/13 [id number] ITEM OR SERVICE completed 12/29/13 [id number] ITEM OR SERVICE completed 12/29/13 864592"INJECTION, FENTANYL CITRATE, 0.1 MG" completed 12/29/13 445291"INFUSION, NORMAL SALINE SOLUTION , 1000 CC" completed 12/29/13 298382"LOW OSMOLAR CONTRAST MATERIAL, 300-399 MG/ML IODINE C completed COMP SCREEN MAMMOGRAM ADD-ON completed 02/01/14 [id number]"SCREENING MAMMOGRAPHY, PRODUCING DIRECT DIGITAL IMAGE completed Encounters Encounter Location Date/Time Departed Emergency Room [facility] 03/05/14 1:53pm Discharged Inpatient [facility] 02/27/14 10:06am Registered Clinic [facility] 02/01/14 10:38am Recent Diagnosis
--- OUTSIDE RECORDS SUMMARY | 2016-07-10 12:23 | XMS REPORT | Continuity of Care Document ---
Author Author [facility] Organization [facility] Address Unknown Phone Unavailable Support Name Relationship Address Phone AMNA MANJARREZ MD Caregiver [address] [place], [place] [phone] KECIA PIÑA MD Caregiver [address] [facility] [address] [place] [phone] CYNDI ARIAS Next Of Kin [address] [place] [address] Insurance Providers Payer Name Policy Number Subscriber Name Relationship Medicare [id number] Stella Diaz 19 Self [facility] [id number] Stella Diaz 19 Self Advance Directives Directive [...] TWICE A DAY 12/24/10 12/20/11 Discontinued Fish Oil/[place]-3 Fatty Acids 2 Cap PO DAILY 12/24/10 [...] PO BID PRN 60 Qty 11/24/13 Active [place]-3 Fatty Acids/Fish Oil 1,000 Mg PO DAILY 11/24/13 Active Fluticasone Propionate 2 [place] NS DAILY 16 Qty 11/24/13 Active Lutein [...] F (96.8 - 99.1) Temperature (Calculated Celsius) 36.51908 degrees C (36.0 - 37.3) Temperature Source [...] 10 MEQ/L N 5-15 CALL RESULTS TO [facility] Arterial Blood Base Excess January 29, 2011 [...] 26 RATIO N 6-26 CALL RESULTS TO [facility] Band Neutrophils # January 29, 2011 1:05am [...] 37.0 MG/DL H 7-17 [facility] Calcium Level August 28, 2013 8:32am 10.0 MG/DL N 8.4-10.2 [facility] Calculated Osmolality August 28, 2013 8:32am 282 MOSM/KG H 261-280 [facility] Carbon Dioxide Level August 28, 2013 8:32am 24 MEQ/L N 22-30 [facility] Chloride Level August 28, 2013 8:32am 108 MEQ/L H 98-107 CALL RESULTS TO [facility] Cholesterol Level April 16, 2013 5:30am 264 MG/DL H 132-199 Cholesterol/HDL Ratio April 16, 2013 5:30am 4.8 RATIO H 0-4.0 Conjugated Bilirubin December 24, 2010 2:05pm 0.00 MG/DL N 0.00-0.30 Creatine Kinase MB April 15, 2013 1:40pm < 0.2 NG/ML 0-3.4 Creatinine August 28, 2013 8:32am 1.4 MG/DL H 0.7-1.2 CALL RESULTS TO [facility] D-Dimer April 13, 2013 10:35pm 741 NG/ML [...] 94 MG/DL N 65-110 CALL RESULTS TO [facility] Hematocrit April 15, 2013 1:40pm 35.4 % [...] 5.3 MEQ/L H 3.6-5 [facility] Prothromb Time International Ratio April 13, [...] 142 MEQ/L N 134-144 CALL RESULTS TO [facility] Thyroid Stimulating Hormone (TSH) April 15, 2013 [...] Has specimen been collected/obtained? Y Urine Specific [place] April 15, 2013 4:30pm 1.015 - Has [...] 28, 2013 9:51am LAB TEST FORM REQUEST [id number] - HDL Cholesterol Direct April 16, 2013 5:30am 55 MG/DL N 40-60 Turbidity August 28, 2013 8:32am < 20 0-20 CALL RESULTS TO [facility] Glomerular Filtration Rate Calc August 28, 2013 8:32am 37 - CALL RESULTS TO [facility] Immature Granulocyte # (Auto) April 15, 2013 1:40pm 0.02 T/MM3 N 0.00 -0.03 Immature Granulocyte % (Auto) April 15, 2013 1:40pm 0.3 % N 0.0-0.5 Arterial Blood pO2 at Patient Temp January 29, 2011 11:50am 95 MMHG N 80-100 Icterus Index August 28, 2013 8:32am < 2 0-7 CALL RESULTS TO [facility] SF-Asu-E-Type Natriuretic Peptide April 13, 2013 10:35pm 65 [...] 2008 5:10pm Name: STELLA DIAZ Unit #: [id number] : 1940 Sex: F Loc / c: [facility] DOS: 08/27/13 Signed Report #: [id number] DIAGNOSTIC IMAGING REPORT TYPE OF EXAM: CT [...] PIÑA MD Encounters Encounter Location Date/Time Registered [facility] 08/28/13 8:26am Registered [facility] 08/27/13 8:29am
--- OUTSIDE RECORDS SUMMARY | 2016-07-10 12:23 | XMS REPORT | Continuity of Care Document ---
Author Author [facility] Organization [facility] Address Unknown Phone Unavailable Support Name Relationship Address Phone AMNA WEINBERG MD Caregiver [address] [place] [address] SHANTELL JACKSON MD Caregiver [facility] [address] [place] [address] Unavailable BRAD ALFREDO MD Caregiver [address] [place], [place] [phone] CYNDI ARIAS Next Of Kin [address] [place], [place] [id number] C Insurance Providers Payer Name Policy Number Subscriber Name Relationship Medicare [id number] Mac Stella Angulo 19 Self [facility] [id number] Mac ChowcharleneStella K 19 Self Advance Directives [...] TWICE A DAY 12/24/10 12/20/11 Discontinued Fish Oil/[place]-3 Fatty Acids 2 Cap PO DAILY 12/24/10 [...] PO DAILY 11/24/13 Active Fluticasone Propionate 2 [place] NS DAILY 16 Qty 11/24/13 Active Lutein [...] F (96.8 - 99.1) Temperature (Calculated Celsius) 37.31749 degrees C (36.0 - 37.3) Temperature Source [...] 28, 2013 9:51am LAB TEST FORM REQUEST [id number] - Lipase February 27, 2014 8:14am 188 [...] 27, 2014 8:14am 6.5 % N 0-9.0 WC-Ioc-M-Type Natriuretic Peptide April 13, 2013 10:35pm 65 [...] Has specimen been collected/obtained? Y Urine Specific [place] February 27, 2014 8:20am 1.010 L - [...] 2008 5:10pm Name: STELLA ZAZUETA Unit #: [id number] : 1940 Sex: F Loc / Svc: SRG DOS: 02/27/14 Signed Report #: [id number] DIAGNOSTIC IMAGING REPORT TYPE OF EXAM: CT [...] hemorrhage. There is a preliminary report by [employer]. . Procedures Procedure Status Date Provider(s) ROUTINE VENIPUNCTURE completed 12/29/13 INJECTION FOR BLADDER X-RAY completed 12/29/13 ÁLVARO PHILLIPS MD CYSTOSCOPY AND TREATMENT completed 12/29/13 ÁLVARO PHILLIPS MD CONTRAST X-RAY BLADDER completed 12/29/13 COMPREHEN METABOLIC PANEL completed 12/29/13 COMPLETE CBC W/AUTO DIFF WBC completed 12/29/13 [id number] ITEM OR SERVICE completed 12/29/13 [id number] ITEM OR SERVICE completed 12/29/13 [id number] ITEM OR SERVICE completed 12/29/13 848644"INJECTION, FENTANYL CITRATE, 0.1 MG" completed 12/29/13 696366"INFUSION, NORMAL SALINE SOLUTION , 1000 CC" completed 12/29/13 549388"LOW OSMOLAR CONTRAST MATERIAL, 300-399 MG/ML IODINE C completed COMP SCREEN MAMMOGRAM ADD-ON completed 02/01/14154306"SCREENING MAMMOGRAPHY, PRODUCING DIRECT DIGITAL IMAGE completed Encounters Encounter Location Date/Time Discharged Inpatient [facility] 02/27/14 10:06am Registered Clinic [facility] 02/01/14 10:38am Recent Diagnosis Confusion Renal insufficiency Weakness Altered mental status
--- OUTSIDE RECORDS SUMMARY | 2016-07-10 12:24 | XMS REPORT | Continuity of Care Document ---
Author Author [facility] Organization [facility] Address Unknown Phone Unavailable Allergies Active Description [...] Status Pt. Type Provider Facility Loc./Unit Complaint [id number] 01/22/2012 05:43:00 2011 11:11:00 DIS Inpatient Alex Fair MD [facility] on [address]
--- OUTSIDE RECORDS SUMMARY | 2016-07-10 12:24 | XMS REPORT | Continuity of Care Document ---
Author Author [facility] Organization [facility] Address Unknown Phone Unavailable Support Name Relationship Address Phone AMNA MANJARREZ MD Caregiver [address] [place] [address] Unavailable KEN LOJA MD Caregiver [address] [place] [address] Unavailable CYNDI ARIAS Next Of Kin [address] [place] [address] C Insurance Providers Guarantor Stella Diaz Address [address] [place] [address] Email DENIED 16 Payer Medicare Policy Number [id number] Subscriber's Name Stella Diaz Relationship 18 Self Effective Date 06 Payer [facility] Policy Number [id number] Subscriber's Name Stella Diaz Relationship 18 Self Group Number [id number] Advance Directives Directive Response Recorded Date/Time Advanced Directives Type None 06/24/16 9:37pm Chief Complaint and Reason for Visit Chief Complaint Fall Reason for Visit Orthostasis Bradycardia Problems Active Problems Medical Problem Onset Date Status Altered mental status 02/27/2014 Acute Confusion Unknown Acute Hypotension Unknown Acute Minor head injury without loss of consciousness Unknown Acute Minor head injury without loss of consciousness Unknown Acute Non-cardiac chest pain Unknown Acute Renal insufficiency Unknown Acute Scalp laceration Unknown Acute Weakness Unknown Acute Past Problems Medical Problem Onset Date Bradycardia Unknown Dehydration Unknown Dehydration Unknown Gastroenteritis Unknown Nausea Unknown Orthostasis Unknown Volume depletion Unknown Medications Current Home Medications Medication Dose Units Route Directions Days Qty Instructions Start Date Abatacept (Orencia) 125 Mg/1 Ml Syringe 1 Ml Sub-Q Monthly Alprazolam 0.25 Mg Tablet 0.25 Mg Oral Three Times A Day as needed for Anxiety 04/03/12 Pantoprazole Sodium (Protonix) 40 Mg Tablet.dr 40 Mg Oral Daily 04/03/12 Pilocarpine Hcl 5 Mg Tablet 1 Tab Oral Four Times Daily 06/24/16 Pramipexole Di-Hcl (Mirapex) 0.125 Mg Tablet 0.25-0.375 [...] Transderm Twice A Day 12/24/10 Discontinued Fish Oil/[place]-3 Fatty Acids (Fish Oil 1,000 Mg Capsule) [...] Fluticasone Propionate (Fluticasone Prop 50 Mcg/Actuation Nasal [place]) 120 [place]/16 G [place], 2 SprayNasal Daily 11/24/13 Discontinued Gabapentin (Neurontin) [...] Problem Response Recorded Date/Time Onset Date Status Chewing Tobacco Status No 06/24/2016 11:30pm Not Applicable Not Applicable Hx Substance Use No 06/24/2016 11:30pm Not Applicable Not Applicable Hx Alcohol Use No 06/24/2016 11:30pm Not Applicable Not Applicable Has the pt used tobacco in the last 12 months No 02/23/2016 10:23am Not Applicable Not Applicable Tobacco Usage none 07/20/2015 1:04pm Not Applicable Not Applicable Query Response Start Date Stop Date Smoking Status Never smoker Hospital Discharge Instructions No hospital discharge instructions. Plan of Care Discharge Date 06/25/16 12:54am Disposition 01 DISCHARGED HOME, SELF-CARE Condition at Discharge Improved Instructions/Education Provided Dizziness (ED) Fall Prevention (ED) Prescriptions See Medication Section Referrals AMNA MANJARREZ MD Address: [address] [place] [id number] Additional Instructions/Education Rise from lying to sitting very slowly, please wait 30 seconds before standing up. When standing up, please wait before walking. Your labs were appropriate, but your blood pressure dropped significantly when you went from lying to sitting. You need to increase fluids and get up very slowly. Functional Status No functional status results. Allergies, Adverse Reactions, Alerts Allergen Type Severity Reaction Status Last Updated rosuvastatin calcium Allergy Intermediate "MADE ME SICK" Active 06/24/16 Penicillin Allergy Mild RASH Active 06/24/16 Lorazepam Allergy Unknown Active 06/24/16 Sulfamethoxazole Allergy Unknown VOMITING Active 06/24/16 Trimethoprim Allergy Unknown VOMITING Active 06/24/16 Immunizations Query Response on File Recorded Date/Time Hx Influenza Vaccination Y 11/20/15 02/23/16 10:23am Hx Pneumococcal Vaccination Y Oct02/23/16 10:23am Hx Influenza Vaccination Y 11/20/15 02/23/16 10:23am Influenza Vaccine Hx 11/20/15 06/24/16 11:30pm Vital Signs Acute Vital Signs Vital Response Date/Time Temperature (Fahrenheit) 98.0 deg F (96.8 - 99.1) 06/25/2016 12:54am Temperature (Calculated Celsius) 36.73383 degrees C (36.0 - 37.3) 06/25/2016 12:54am Pulse Rate (adult) 58 bpm (60 - 100) 06/25/2016 12:54am Respiratory Rate 16 breaths/min (10 - 20) 06/25/2016 12:54am O2 Sat by Pulse Oximetry 94 % (90 - 100) 06/25/2016 12:54am Oxygen Delivery Method Room Air 06/14/2016 11:25am Blood Pressure 147/69 mm Hg 06/25/2016 12:54am Blood Pressure Source Automatic Cuff 06/14/2016 11:25am Height (Feet) 5 feet 06/24/2016 9:37pm Height (Inches) 4.00 inches 06/24/2016 9:37pm Weight (Kilograms) 77.500 kg 06/24/2016 9:37pm Body Mass Index (BMI) 29.0 06/24/2016 9:37pm Results Laboratory Results Test Name Result Units Flags Reference Collection Date/Time Result Date/ Time Comments Neutrophils % (Manual) 40.0 % 33-66 06/14/2016 10:58am 06/14/2016 11: 24am Band Neutrophils % 1.0 % 0-6 04/18/2016 1:49pm 04/18/2016 2:40pm Lymphocytes % (Manual) 33.0 % 23-45 06/14/2016 10:58am 06/14/2016 11: 24am Monocytes % (Manual) 8.0 % 0-9.0 06/14/2016 10:58am 06/14/2016 11:24am Eosinophils % (Manual) 19.0 % H 0-4 06/14/2016 10:58am 06/14/2016 11: 24am Basophils % (Manual) 3.0 % H 0-2 05/17/2016 10:48am 05/17/2016 11:11am Reactive Lymphocytes % 1.0 % H 0-0 04/18/2016 1:49pm 04/18/2016 2:40pm Band Neutrophils # 0.1 T/MM3 04/18/2016 1:49pm 04/18/2016 2:40pm Absolute Neutrophils (Manual) 2.5 T/MM3 1.8-7.7 06/14/2016 10:58am 11:24am Lymphocytes # (Manual) 2.1 T/MM3 1-4.8 06/14/2016 10:58am 06/14/2016 11 :24am Monocytes # (Manual) 0.5 T/MM3 0-0.8 06/14/2016 10:58am 06/14/2016 11: 24am Eosinophils # (Manual) 1.2 T/MM3 H 0-0.5 06/14/2016 10:58am 06/14/2016 11:24am Basophils # (Manual) 0.2 T/MM3 0-0.2 05/17/2016 10:48am 05/17/2016 11: 11am Reactive Lymphocytes # 0.1 T/MM3 H 0-0 04/18/2016 1:49pm 04/18/2016 2: 40pm Red Cell Morphology Comment NORMAL 06/14/2016 10:58am 06/14/2016 11 :24am Poikilocytosis 1+ 03/21/2016 10:28am 03/21/2016 11:01am Hypochromasia 1+ 03/21/2016 10:28am 03/21/2016 11:01am Ovalocytes 1+ 03/21/2016 10:28am 03/21/2016 11:01am Tear Drop Cells 1+ 02/23/2016 10:25am 02/23/2016 11:14am C-Reactive Protein < 5.0 MG/L 0-9 06/14/2016 10:58am 06/14/2016 11: 21am TB Test (QFT) Negative Negative 02/23/2016 10:38am 02/26/2016 12: 07pm Quantiferon TB Test performed at [facility], [address] [place] [address] Migration Agent Magda Espinoza DO Erythrocyte Sedimentation Rate 7 mm/h 0-23 06/14/2016 10:58am 2016 1:55am Sedimentation Rate performed at [facility], [address] [place] [address] Migration Agent Magda Espinoza, DO White Blood Count 6.6 T/MM3 4.5-11.0 06/24/2016 10:40pm 06/24/2016 10: 53pm Red Blood Count 4.10 M/MM3 4.00-5.20 06/24/2016 10:40pm 06/24/2016 10: 53pm Hemoglobin 10.6 GM/DL L 12-16 06/24/2016 10:40pm 06/24/2016 10:53pm Hematocrit 35.1 % L 36-46 06/24/2016 10:40pm 06/24/2016 10:53pm Mean Corpuscular Volume 85.6 UM3 80-100 06/24/2016 10:40pm 06/24/2016 10:53pm Mean Corpuscular Hemoglobin 25.9 UUG L 26-34 06/24/2016 10:40pm 2016 10:53pm Mean Corpuscular Hemoglobin Concent 30.2 GM/DL L 31-37 06/24/2016 10: 40pm 06/24/2016 10:53pm RDW Standard Deviation 44.7 FL 36.9-50.2 06/24/2016 10:40pm 06/24/2016 10:53pm Platelet Count 237 T/MM3 130-400 06/24/2016 10:40pm 06/24/2016 10:53pm Mean Platelet Volume 11.4 UM3 9.4-12.4 06/24/2016 10:40pm 06/24/2016 10 :53pm Neutrophils (%) (Auto) 37.7 % 33-66 06/24/2016 10:40pm 06/24/2016 10: 53pm Lymphocytes (%) (Auto) 36.9 % 23-45 06/24/2016 10:40pm 06/24/2016 10: 53pm Monocytes (%) (Auto) 7.6 % 0-9.0 06/24/2016 10:40pm 06/24/2016 10:53pm Eosinophils (%) (Auto) 16.5 % H 0-4 06/24/2016 10:40pm 06/24/2016 10: 53pm Basophils (%) (Auto) 1.1 % 0-2 06/24/2016 10:40pm 06/24/2016 10:53pm Immature Granulocyte % (Auto) 0.2 % 0.0-0.5 06/24/2016 10:40pm 2016 10:53pm Absolute Neutrophils (auto) 2.5 T/MM3 1.8-7.7 06/24/2016 10:40pm 2016 10:53pm Absolute Lymphocytes (auto) 2.4 T/MM3 1-4.8 06/24/2016 10:40pm 2016 10:53pm Absolute Monocytes (auto) 0.5 T/MM3 0-0.8 06/24/2016 10:40pm 2016 10:53pm Absolute Eosinophils (auto) 1.1 T/MM3 H 0-0.5 06/24/2016 10:40pm 2016 10:53pm Absolute Basophils (auto) 0.1 T/MM3 0-0.2 06/24/2016 10:40pm 2016 10:53pm Absolute Immature Granulocyte (auto 0.01 T/MM3 0.00-0.03 06/24/2016 10: 40pm 06/24/2016 10:53pm Icterus Index < 2 0-7 06/24/2016 10:40pm 06/24/2016 11:25pm Chemistry Specimen Hemolysis 24 0-25 06/24/2016 10:40pm 06/24/2016 11 :25pm 0-25: Specimen Exhibited No Hemolysis. Turbidity < 20 0-20 06/24/2016 10:40pm 06/24/2016 11:25pm Sodium Level 145 MEQ/L H 134-144 06/24/2016 10:40pm 06/24/2016 11:25pm Potassium Level 4.2 MEQ/L 3.6-5 06/24/2016 10:40pm 06/24/2016 11:25pm Chloride Level 105 MEQ/L 98-107 06/24/2016 10:40pm 06/24/2016 11:25pm Carbon Dioxide Level 27 MEQ/L 22-30 06/24/2016 10:40pm 06/24/2016 11: 25pm Anion Gap 13 MEQ/L 5-15 06/24/2016 10:40pm 06/24/2016 11:25pm Blood Urea Nitrogen 13.0 MG/DL 7-17 06/24/2016 10:40pm 06/24/2016 11: 25pm Creatinine 0.7 MG/DL 0.7-1.2 06/24/2016 10:40pm 06/24/2016 11:25pm BUN/Creatinine Ratio 19 RATIO 6-26 06/24/2016 10:4006/24/2016 11: 25pm Glomerular Filtration Rate Calc 82 06/24/2016 10:40pm 06/24/2016 11 :25pm Glucose Level 122 MG/DL H 65-110 06/24/2016 10:40pm 06/24/2016 11:25pm Calculated Osmolality 280 MOSM/KG 261-280 06/24/2016 10:402016 11:25pm Calcium Level 9.8 MG/DL 8.4-10.2 06/24/2016 10:4006/24/2016 11:25pm Total Bilirubin 0.40 MG/DL 0.20-1.30 06/24/2016 10:40pm 06/24/2016 11: 25pm Alkaline Phosphatase 77 U/L 38-126 06/24/2016 10:40pm 06/24/2016 11: 25pm Total Protein 6.7 G/DL 6.3-8.2 06/24/2016 10:4006/24/2016 11:25pm Albumin 4.0 G/DL 3.5-5.0 06/24/2016 10:4006/24/2016 11:25pm Globulin 2.7 G/DL 2.4-3.6 06/24/2016 10:40pm 06/24/2016 11:25pm Albumin/Globulin Ratio 1.5 RATIO 1.1-2.2 06/24/2016 10:40pm 06/24/2016 11:25pm Aspartate Amino Transf (AST/SGOT) 21 U/L 14-36 06/24/2016 10:40pm 06/24 11:25pm Alanine Aminotransferase (ALT/SGPT) 28 U/L 9-52 06/24/2016 10:40pm 09/2016 11:25pm Troponin I < 0.012 ng/ml 0-0.12 06/24/2016 10:40pm 06/24/2016 11:36pm Troponin values with a difference of 55% increase from orginal troponin value represent a true biological DELTA value. (%increase Calc=Orginal Troponin value, divided by subsequent Troponin value, multiplied by 100) Thyroid Stimulating Hormone (TSH) 2.00 MIU/L 0.47-4.68 06/24/2016 10: 40pm 06/24/2016 11:55pm Procedures Procedure Status Date Provider(s) Contrast x-ray esophagus Completed 04/22/16 Echo exam of abdomen Completed 05/03/16 Hepatobil syst image w/drug Completed 05/03/16 361932"TECHNETIUM TC-99M MEBROFENIN, DIAGNOSTIC, PER STUDY D Completed [id number]"INJECTION, SINCALIDE, 5 MICROGRAMS" Completed 05/03/16 Encounters Encounter Location Arrival/Admit Date Discharge/Depart Date Attending Provider Departed Emergency Room [facility] 06/24/16 9:37pm 06/25/16 12: 54am KEN LOJA MD Registered [facility] 06/14/16 10:00am RICHIE CORBIN Registered [facility] 05/03/16 7:24am AMNA MANJARREZ MD Registered [facility] 04/22/16 8:57am AMNA MANJARREZ MD Recent Diagnosis
[2016-07-10 12:39] VITALS: Ht 162.6 cm; Wt 71.8 kg
[2016-07-10 13:14] VITALS: BP 154/70; PULSE 73; RESP 20; TEMP 96.9; O2SAT 97
[2016-07-10] MEDS ORDERED: ONDANSETRON 4mg/2ml INJECTION IV PRN (13:30)
[2016-07-10] MEDS ORDERED: METOCLOPRAMIDE 10mg/2ml INJECTION IV PRN (13:30)
[2016-07-10] MEDS ORDERED: D5-1/2 NS KCL 20 MEQ 1,000 ML IV SCH (13:30)
[2016-07-10] MEDS ORDERED: ACYC400T PO (13:31)
[2016-07-10] MEDS ORDERED: GABA-338 PO (13:31)
[2016-07-10] MEDS ORDERED: SCOP1PAT TOP (13:33)
[2016-07-10 14:00] VITALS: BP 174/72; PULSE 78; RESP 20; TEMP 96.9; O2SAT 91
[2016-07-10] MEDS: PANTOPRAZOLE 40mg INJECTION IV SCH ×2 (14:00→21:50)
[2016-07-10 14:01] LABS: HCT - HEMATOCRIT 35.9 % (36-46); HGB - HEMOGLOBIN 10.9 GM/DL (12-16); MEAN CORPUSCULAR HGB 25.8 UUG (26-34); MEAN CORPUSCULAR HGB CONC(MCHC 30.4 GM/DL (31-37); MEAN CORPUSCULAR VOLUME 84.9 UM3 (80-100); MEAN PLATELET VOLUME 10.9 UM3 (9.4-12.4); RED BLOOD COUNT 4.23 M/MM3 (4.00-5.20); WBC - WHITE BLOOD COUNT 6.7 T/MM3 (4.5-11.0)
[2016-07-10 14:13] LABS: ALBUMIN 3.8 G/DL (3.5-5.0); ALBUMIN/GLOBULIN RATIO 1.4 RATIO (1.1-2.2); ALKALINE PHOSPHATASE 78 U/L (38-126); ALT (SGPT) 35 U/L (9-52); ANION GAP 11 MEQ/L (5-15); AST (SGOT) 20 U/L (14-36); BUN/CREATININE RATIO 17 RATIO (6-26); CALCIUM 9.5 MG/DL (8.4-10.2); CHLORIDE 104 MEQ/L (98-107); CO2 - CARBON DIOXIDE 27 MEQ/L (22-30); CREATININE 0.9 MG/DL (0.7-1.2); GLOMERULAR FILTRATION RATE 61; GLUCOSE 101 MG/DL (65-110); MAGNESIUM 2.1 MG/DL (1.6-2.3); POTASSIUM 4.4 MEQ/L (3.6-5); SODIUM 142 MEQ/L (134-144); TOTAL PROTEIN 6.6 G/DL (6.3-8.2)
[2016-07-10 14:14] LABS: BASOPHILS # (MANUAL) 0.1 T/MM3 (0-0.2); EOSINOPHILS # (MANUAL) 0.5 T/MM3 (0-0.5); LYMPHOCYTES # (MANUAL) 2.1 T/MM3 (1-4.8); MONOCYTES # (MANUAL) 0.3 T/MM3 (0-0.8); OVALOCYTES 1+; POIKILOCYTOSIS 1+; REACTIVE LYMPHOCYTES # 0.6 T/MM3 (0-0); TOTAL CELLS COUNTED 100 %
[2016-07-10] MEDS ORDERED: MAGN400O4 PO (14:28)
[2016-07-10] MEDS ORDERED: METO10TA3 PO (14:28)
[2016-07-10] MEDS ORDERED: LINA145C PO (14:32)
[2016-07-10 14:44] LABS: THYROID STIM HORMONE-TSH 0.33 MIU/L (0.47-4.68)
[2016-07-10] MEDS ORDERED: [UNRECOGNIZED DRUG - CODE] PO (15:06)
[2016-07-10] MEDS ORDERED: FLUO40CA49 PO (15:06)
[2016-07-10] MEDS ORDERED: HYOS0.122 SL (15:15)
[2016-07-10 15:45] LABS: BLOOD, URINE NEGATIVE (NEGATIVE); COLOR,URINE YELLOW (YELLOW); LEUKOCYTE ESTERASE ,URINE NEGATIVE (NEGATIVE); NITRITE,URINE NEGATIVE (NEGATIVE); UROBILINOGEN,URINE 0.2 EU/DL (NORMAL)
[2016-07-10 16:00] VITALS: BP 151/69; PULSE 77; RESP 17; TEMP 97.3; O2SAT 93
[2016-07-10] MEDS: D5-1/2 NS KCL 20 MEQ 1,000 ML IV SCH (17:48)
--- NOTE | 2016-07-10 18:16 | HPF ---
CHIEF COMPLAINT Dizziness and nausea. HISTORY OF PRESENT ILLNESS The patient is a 75-year-old female here today with her daughter, Katharine, at the request of Dr. Juarez for followup with me from recent cardiology workup. She presented today with symptoms of abdominal bloating, constipation, nausea, dry heaving, dizziness and lightheadedness. She feels like she is going to pass out because she is so weak. Decreased appetite. We have been dealing with these issues for quite some time with this patient. Patient presented with her typical symptoms of nausea, dry heaving, fatigue, dizziness, lightheadedness, constipation, abdominal pain in the hypogastric region. * * to look at patient's excessive symptoms. She had CT of the abdomen and pelvis in 2013, 2015 and now 2017. All have been negative. A HIDA scan has been done which was negative as was a gallbladder ultrasound. I sent her to Dr. Higgins. However, the patient was seen by Dr. Cabrera, who is Dr. Higgins' partner. I have Dr. Cabrera' note. He basically recommended MRCP as well as fasting a.m. cortisol. I am not sure if that has been done. She had a brain MRI done at that time because of the lightheadedness and dizziness which was unremarkable. Patient was asked to see me to discuss anxiety and mood problems. Today she is not really interested in that. She is more concerned about being dehydrated. She just can't hold things down. She has lost about 11 pounds, she said. Levsin * *. Now she complains of poor appetite and poor thinking. Very weak with loss of appetite. She went to [place] about 6 to 12 months ago and at that time she was bitten by a tick. She wonders if this has something to do with her symptoms. The patient has been evaluated by Dr. Trejo at my request for her symptoms. Dr. Trejo told the patient that he did not recommend repeating EGD and colonoscopy since they were done recently. REVIEW OF SYSTEMS No fever or chills. The patient complains of profound fatigue. The rest of her review of systems is per HPI. PAST MEDICAL HISTORY Hysterectomy at age 35. BSO at age 36. Depression. Carpal tunnel syndrome. Hypertension. Insomnia. Restless leg syndrome. Chronic back pain. Pulmonary embolism. Bilateral knee pain. PAST SURGICAL HISTORY Bilateral knee replacement. FAMILY HISTORY Father had high blood pressure as well as diabetes. Mother had high blood pressure and CHF. There is family history of cancer, stroke, kidney disease. ALLERGIES Penicillin. Ativan. CURRENT MEDICATIONS 1. Alprazolam 0.5 mg one tablet p.o. t.i.d. 2. Folic acid 1 mg one tablet daily. 3. Gabapentin 300 mg one tablet daily. 4. Hydrocodone 10/325 mg up to four tablets daily. 5. Imdur 10 mg one tablet p.o. b.i.d. 6. Linzess 145 mcg one capsule daily. 7. Mirapex 0.125 mg two to three tablets at bedtime p.r.n. restless leg syndrome. 8. Orencia 125 mg/cc subcutaneously once a month. 9. Pantoprazole 40 mg one tablet b.i.d. 10. Pilocarpine 5 mg one tablet p.o. q.i.d. 11. Prozac 40 mg one tablet daily. 12. Restoril 30 mg one tablet at bedtime. 13. Tizanidine 4 mg one tablet p.o. t.i.d. 14. Trazodone 100 mg one tablet p.o. q.h.s. 15. Xanax 0.5 mg one tablet p.o. q.4-6h. p.r.n. 16. Zofran 4 mg one tablet p.r.n. PHYSICAL EXAM VITAL SIGNS: Weight 159 pounds. Temperature 97.5. Blood pressure 140/60. Pulse 80. GENERAL: The patient looks ill. HEENT: Unremarkable. NECK: Supple. LUNGS: Clear. CARDIOVASCULAR: Regular rate and rhythm. ABDOMEN: Soft. The patient is mildly tender in the epigastric region. Bowel sounds are normoactive. EXTREMITIES: No cyanosis, clubbing or edema. NEUROLOGIC: Grossly intact. ASSESSMENT 1. Generalized weakness. 2. Dehydration. 3. Constellation of symptoms that we are unable to find the cause which includes generalized weakness, poor thinking, lack of appetite. PLAN Will admit to [facility] and start on IV fluids. Additional workup will be indicated at that time. Will do lab including CBC, UA, TSH, PTH, magnesium, CMP as well as Troponin I. All are pending at time of dictation. [facility]
--- NOTE | 2016-07-10 18:40 | NUR ---
admitted per service of Dr Hong with falls and some confusion. has a hx of RArthritis. pac acessed with good blood return iv fluids given. up to br with standby assistance, wearing a holter monitor
[2016-07-10 20:45] VITALS: PULSE 85
[2016-07-10] MEDS: TEMAZEPAM 15 MG CAPSULE PO SCH (21:51)
[2016-07-10 23:37] VITALS: BP_SYST 193; BP_SYST 197; BP_DIAS 83; BP_DIAS 87; PULSE 88; PULSE 92; RESP 18; TEMP 96.8; O2SAT 94; O2SAT 96
[2016-07-11] VITALS (8 sets, daily range): BP systolic 144–213; BP diastolic 69–94; PULSE 80–108; RESP 18–20; TEMP 96.4–98.1; O2SAT 91–94
[2016-07-11] MEDS ORDERED: AMLODIPINE 5 MG TABLET PO PRN (00:30)
[2016-07-11] MEDS: D5-1/2 NS KCL 20 MEQ 1,000 ML IV SCH ×3 (01:51→20:02)
--- NOTE | 2016-07-11 05:18 | NUR ---
SUMMARY A&O X3, SLIGHT CONFUSION NOTED, SBA WITH WALKER. REPORTED PAIN IN HER BACK RATED 6/10, PRN NORCO GIVEN ORDERED, EFFECTIVE PER PT REPORT. GOOD OUTPUT FOR SHIFT. PT HAS SLEPT FOR MOST OF THE NIGHT, STAFF GROUPED CARES TO MINIMIZE SLEEP INTERRUPTIONS. POWER PORT TO THE RIGHT CHEST, FLUSHES AND ASPIRATES WELL, INFUSING D5.45NS W/ 2KCL AT 125 MLS PER HR.
[2016-07-11] MEDS: PANTOPRAZOLE 40mg INJECTION IV SCH ×2 (07:29→21:40)
--- NOTE | 2016-07-11 08:21 | DI ---
Indication: ITS.REASON: hyperthyroidism PROCEDURE: US THYROID: Encounter: Initial Comparison: None Technique: Grayscale and color Doppler sonographic imaging of the thyroid gland was performed. Findings: The right thyroid lobe appears homogeneous without focal nodule or mass. Thyroid isthmus appears normal. Left thyroid lobe shows a 6 mm isoechoic colloid nodule, but is otherwise normal. Thyroid isthmus measures 0.2 cm in diameter. Normal Doppler flow to both thyroid lobes. In the area of palpable concern in the midline neck there is a 8 x 5 x 10 mm mixed echogenicity somewhat ill-defined lesion which appears external to the thyroid gland and is of uncertain etiology. Right lobe measures 4.4 x 1.6 x 1.4 cm. Left lobe measures 3.9 x 1.4 x 1.5 cm. Impression: No worrisome thyroid nodule. Indeterminate 1 cm lesion at the area of palpable concern could represent an atypical lymph node or other process. Contrast enhanced CT of the neck could be performed for further evaluation. .
--- NOTE | 2016-07-11 09:36 | PNF ---
DATE 07/11/2016 SUBJECTIVE Patient is lying in her bed in Room 164 on the medical floor. She was eating breakfast. Her actually just walked in as I walked into the room as well. Patient said that she feels much better. She walked several times yesterday. Her dizziness is much improved. No nausea. No vomiting. No dry heaving at this time. Just some epigastric discomfort. PHYSICAL EXAMINATION GENERAL: She looks much better today. She looks very cheerful today. VITAL SIGNS: Blood pressure 190/80 with a pulse of 94, respiration 20, temperature 96.4, 02 sat 91% on room air. NECK: Supple. LUNGS: Clear. CARDIOVASCULAR: Regular rate and rhythm. ABDOMEN: Soft. Mild epigastric discomfort and tenderness. EXTREMITIES: No cyanosis, clubbing or edema. NEUROLOGIC: Grossly intact. ASSESSMENT 1. Acute dehydration. 2. Generalized weakness. 3. Nausea and vomiting. 4. Epigastric pain. 5. Decreased appetite. 6. GERD. 7. Hyperthyroidism. 8. Polypharmacy probably with multiple unknown side effects due to multiple interactions that maybe culprit to patient's nonspecific symptoms above. PLAN 1. Continue IV fluids. 2. We have a psych consult in place. 3. Will also have Dr. Juarez consult just to reevaluate patient with history of bradycardia while she is here. 4. Thyroid ultrasound has been done. 5. Encourage ambulation today. MARCO
--- NOTE | 2016-07-11 09:38 | NUR ---
GOLD CM VISITED PT. CM EXPLAINED ROLE AND PROVIDED CONTACT INFORMATION. PT PLANS TO RETURN HOME POST HOSPITAL STAY. PT DENIES NEEDS. PT PLANS TO RETURN HOME WITH SPOUSE. PT IS AWARE TO CONTACT CM IF NEEDS ARISE.
[2016-07-11] MEDS ORDERED: SALINE FLUSH 10ml SYRINGE ONE ×3 (12:43→14:58)
[2016-07-11] MEDS ORDERED: NORMAL SALINE 100 ML ONE (12:43)
[2016-07-11] MEDS ORDERED: IOHEXOL 300 MG/ML 75ml INJECTION ONE (12:43)
--- NOTE | 2016-07-11 15:55 | DI ---
Indication: ITS.REASON: abnormal ultrasound of thyroid PROCEDURE: CT NECK W/CONTRAST: Encounter: Initial Comparison: Thyroid ultrasound dated July 10, 2016 Technique: Axial CT images were performed through the neck with intravenous contrast. Coronal and sagittal two-dimensional reformats Automated Exposure Control and Iterative Reconstruction dose reducing techniques were utilized. Contrast: Omnipaque 300 75 mL Findings: Mild groundglass opacity in the lung apices could be due to air trapping. The thyroid gland shows a tiny nodule in the left lobe as seen on the recent ultrasound comparison. No worrisome thyroid nodules or masses appreciated. The parotid and submandibular glands appear normal. No pathologically enlarged or enhancing adenopathy identified in the neck. No fluid collections appreciated. In the area of abnormality seen by ultrasound there is a 1 cm fat-containing lesion that could represent normal fat or a small lipoma. This is immediately below the isthmus of the thyroid gland. Right IJ port catheter noted incidentally. No mucosal based mass lesions. The skull base is unremarkable. Great vessels show no acute findings. The parapharyngeal fat spaces are normal. Impression: No worrisome mass or adenopathy identified. The area of palpable concern identified by ultrasound may represent a benign lipoma. .
--- NOTE | 2016-07-11 17:42 | NUR ---
shift summary Up often to br had a loose bm medicated with Narco 10 mg po for co of low back pain.a little forgetful at times. laughs inapproiately.no co of dizziness or synope continue to observe.
--- NOTE | 2016-07-11 18:56 | NUR ---
Dr. armas: Received verbal for Telemetry from Dr. Juarez.
[2016-07-11] MEDS: TEMAZEPAM 15 MG CAPSULE PO SCH (21:41)
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
[2016-07-12] MEDS: D5-1/2 NS KCL 20 MEQ 1,000 ML IV SCH (04:34)
--- NOTE | 2016-07-12 06:30 | NUR ---
SUMMARY PT A&O X3. REPORTS PAIN IN BACK RATED 7/10, PRN NORCO GIVEN ORDERED. RT CHEST PORT-A-CATH ACCESSED, INFUSING [id number] AT 125ML/HR. NO SIGNIFICANT ISSUES AROSE THIS SHIFT.
[2016-07-12 07:38] VITALS: BP 163/80; PULSE 88; RESP 18; TEMP 97.1; O2SAT 92
[2016-07-12 08:00] VITALS: PULSE 89
[2016-07-12] MEDS: PANTOPRAZOLE 40mg INJECTION IV SCH (09:03)
--- NOTE | 2016-07-12 09:49 | NUR ---
GOLD CM VISITED PT AND SPOUSE. PT IS READY TO RETURN HOME. PT IS AWARE OF RECOMMENDATIONS FOR OUTPATIENT MENTAL HEALTH FOLLOW UP. PT/SPOUSE HAVE DECLINED. CM SPOKE WITH ANASTACIO DUMONT AND SHE IS AWARE OF PT REQUESTS.
[2016-07-12 16:00] VITALS: BP 172/80; PULSE 91; RESP 18; TEMP 97.5; O2SAT 94
[2016-07-12] MEDS ORDERED: FLUOXETINE 20 MG CAPSULE PO SCH (17:30)
[2016-07-12] MEDS ORDERED: SCOPOLAMINE 1.5 MG PATCH TD SCH (17:30)
[2016-07-12] MEDS ORDERED: AMLO5TAB2 PO (17:42)
--- NOTE | 2016-07-12 18:55 | NUR ---
shift summary Medicated x1 forback pain. dc instructions reviewed pac deacessed and flushed with heparin.meds called into [facility].
[2016-07-13] MEDS ORDERED: PANTOPRAZOLE 40 MG TABLET PO SCH (06:30)
--- NOTE | 2016-07-13 11:01 | DSF ---
FINAL DIAGNOSES 1. Acute dehydration. 2. Generalized weakness. 3. Nausea and vomiting of unknown etiology. 4. Chronic epigastric pain. 5. Decreased appetite. 6. Gastroesophageal reflux disease. 7. Abnormal TSH. 8. Polypharmacy. 9. Clinical depression. 10. History of bradycardia. Patient sees Dr. Juarez for this. 11. Restless leg syndrome. 12. Hypertension. CONSULTANTS 1. Dr. Mellisa Cr for neuropsychiatric evaluation. 2. Dr. Jan Juarez for cardiac followup on bradycardia. REASON FOR ADMISSION Patient is a 75-year-old female who came to the office with her daughter, Katharine, at the request of Dr. Juarez to follow up with me due to recent cardiology workup. Patient presented today with symptoms of abdominal bloating, constipation, nausea, dry heaving, dizziness, and lightheadedness. She also feels like she is going to pass out. She feels she is so weak because of decreased appetite. In addition also she has epigastric discomfort. At one point in time, we did an extensive workup on this patient who over the last two to three years included a repeat CT abdomen and pelvis on multiple occasions. Ultrasound also with HIDA scan. I have sent patient to GI doctor in [place], Dr. Cabrera. The patient has seen Dr. Trejo for general surgical consultation for epigastric pain. The patient has Dr. Juarez for bradycardia. Patient had recent EGD and colonoscopy. They were essentially normal. PHYSICAL EXAMINATION GENERAL: Patient looks tired. She looks ill. Otherwise the exam is unremarkable. LABORATORY DATA CBC and CMP were entirely normal. TSH is slightly low at 0.33. Free T4 normal at 1.22. PTH 36.7. ACTH 34. Potassium 4.4. CBC normal other than hemoglobin 10.9. UA was entirely normal. HOSPITAL COURSE Patient admitted to the general medical floor under the care of Dr. Angel Weinberg on an outpatient basis. Patient was started on IV fluids with potassium supplementation. She felt good. After routine 10 hours of IV fluids she looked more lively than when she first came in. Her was very happy with the outcome of this first round of IV fluids. We had pretty much all of the patient's home medications. A total of 10 of those other than sleep medication and Restoril and [place] for pain management. Patient desires to go home. She is feeling better. She did develop nausea on the day of dismissal. She is medically stable enough to dismiss to home at this time with followup with me at the office in 7 to 10 days. Patient was very reluctant to comply with Dr. Cr's recommendations as far as her psych medication is concerned. She and her adamantly refused to even try under her suggestion. DISMISSAL MEDICATION 1. Norvasc 5 mg one tablet daily. That is a new medicine for blood pressure that was a little high. 2. Restoril 15 mg one to two tablets at bedtime for sleep. 3. [place] 10/325 one tablet 4 times daily p.r.n. for pain. 4. Zofran 4 mg one tablet every 4 to 6 hours p.r.n. for nausea. 5. Protonix 40 mg one tablet daily. 6. Fluoxetine 40 mg one capsule every other day for now. 7. Scopolamine patch three times per week. Change it every three days. FOLLOWUP Follow up with Dr. Weinberg in 7 to 10 days. I will have patient see Dr. Gomez on outpatient basis for the abnormal TSH. Ultrasound is unremarkable followed by CT neck essentially unremarkable. That may be benign adenoma. MTDD
--- NOTE | 2016-07-15 10:52 | NUR ---
CM CM LVM
[2016-07-15] MEDS ORDERED: SCOPOLAMINE PATCH REMOVAL TD SCH (18:00)
== END 2016-07-12 18:05 | disposition home or self-care (01) ==
LOC: MED 12:16
PROVIDERS: ADMIT Family Medicine; ATTEND Family Medicine
DX: E86.0 Dehydration (principal); R53.1 Weakness; R11.2 Nausea with vomiting, unspecified; G89.4 Chronic pain syndrome; R10.13 Epigastric pain; R63.0 Anorexia; Z68.27 Body mass index [BMI] 27.0-27.9, adult; K21.9 Gastro-esophageal reflux disease without esophagitis; E05.90 Thyrotoxicosis, unspecified without thyrotoxic crisis or storm; Z79.899 Other long term (current) drug therapy; R07.89 Other chest pain; F32.9 Major depressive disorder, single episode, unspecified; F41.9 Anxiety disorder, unspecified; N28.9 Disorder of kidney and ureter, unspecified; I95.9 Hypotension, unspecified; R00.1 Bradycardia, unspecified; G25.81 Restless legs syndrome; I10 Essential (primary) hypertension; R45.86 Emotional lability; Z91.5 Personal history of self-harm; G47.00 Insomnia, unspecified; K59.09 Other constipation; Z86.711 Personal history of pulmonary embolism; Z96.653 Presence of artificial knee joint, bilateral; Z87.828 Personal history of other (healed) physical injury and trauma; R29.6 Repeated falls
CPT/HCPCS: 70491; 76536; 80053; 81003; 82024; 82088; 83735; 83970; 84439; 84443; 84484; 85007; 85027; 96361; 96374; 96375; 96376; A9270; C9113; G0378; G0379; J1642; J7050; Q9967; 99218

== ENCOUNTER 2017-09-27 02:38 | Observation (INO) ==
--- NOTE | 2017-09-27 02:57 | Emergency Department Report ---
Fall HPI - General Chief Complaint: Fall Stated Complaint: possible od, fall from standing Time Seen by Provider: 09/27/17 02:46 Source: patient, family, EMS Mode of arrival: EMS Limitations: altered mental status - History of Present Illness HPI Narrative: Patient had her sleep in separate rooms. At 1 AM this morning the heard a thunk in her room, and knew that she had fallen. He went to her bedside and found her on the floor, laying flat on her back, speaking incoherently, conscious. Patient was severely confused and lethargic, did not recognize where she was or her surroundings. After the helped her get arranged, he called EMS for evaluation. EMS found the patient to be hypoxemic on room air, unbeknownst to them the patient uses oxygen or CPAP nightly. Patient re-oxygenated easily with nasal cannula, and with normoxia, her level of alertness seemed to improve. Patient is still very confused and disoriented, but is able to state that she fell several days ago and was evaluated at an ER that she believed to be noon ER, for knee pain. The patient's believes that the patient is over narcotized, and he is very concerned that the patient is overusing her Percocet. Patient sees Dr. Tim Coker in [place] for pain management, and always seems to be okay on her pill counts, but the has deep concerns about the patient's narcotic use. Patient is not a drinker, there is no alcohol in the house, and patient has never used recreational drugs. I contacted [facility], and was able to get information about the patient's visit 2 days ago. Apparently the patient fallen on both knees, and had intractable right knee pain. X-rays of the knees were negative, and patient was admitted overnight for pain control. - Related Data Home Medications Medication Instructions Recorded Confirmed Neurontin (gabapentin) 300 mg 300 mg PO TID 90 Days #450 cap 08/08/16 09/27/17 capsule FLUoxetine [Prozac] 20 mg PO BID 09/13/17 09/27/17 Lactulose Bulk Oral Liq [Enulose] 20 g PO TID PRN 09/13/17 09/27/17 Losartan [Cozaar] 50 mg PO DAILY 09/13/17 09/27/17 Oxycodone/Apap 10/325 [Percocet 1 tab PO Q4H PRN 09/13/17 09/27/17 10/325] Previous Rx's Medication Instructions Recorded pramipexole 0.125 mg tablet 0.125 mg PO .COMPLEX #60 tab 08/28/16 Protonix (Pantoprazole)40 mg 40 mg PO BID #120 tab 09/13/16 tablet,delayed release Xanax (alprazolam) 0.25 mg tablet 0.25 mg PO TID PRN #90 tab 10/25/16 Norvasc (amlodipine) 5 mg tablet 5 mg PO Q12HR PRN #60 tab 11/18/16 trazodone 100 mg tablet 100 mg PO DAILY #30 tab 11/22/16 Restoril (temazepam) 30 mg capsule 30 mg PO DAILY #30 cap 12/23/16 scopolamine 1 mg over 3 days 1 patch TD Q3D #12 each 01/13/17 transdermal patch Ondansetron [Zofran Odt] 1 tab PO Q6HR PRN #20 tab 09/13/17 Allergies Allergy/AdvReac Type Severity Reaction Status Date / Time Penicillins Allergy Mild RASH Verified 09/27/17 02:53 Ativan Allergy Unknown Uncoded 09/26/17 08:42 Review of Systems All systems: reviewed and negative except as stated PFSH Patient Stated Medical History Migraine Yes Syncope Yes Cataracts Yes: bilateral removed Hypertension Yes Myocardial Infarction Yes Sleep Apnea Yes Gastroesophageal Reflux Yes Disease Hiatal Hernia Yes Hx Kidney Stones Yes: in the past Anemia Yes Other Musculoskeletal Yes: rheumatoid arthritis Clinic Medical History (Last Updated 09/26/16 @ 09:46 by Bishnu Gomez MD) Hyperthyroidism, subclinical (Chronic Medical ~06/2016) This needs confirmatory lab tests. However the palpable area for which the sonogram and CT wre done does not seem to be present any longer and nothing of consequence was seen on those studies except for a probable lipoma so further imaging studies are not indicated. Hyperlipidemia LDL goal <130 (Chronic Medical) Hypertension (Chronic Medical) Carpal tunnel syndrome (Acute Medical) Chronic insomnia (Acute Medical) Depression (Acute Medical) Restless leg syndrome (Acute Medical) Surgical History: hysterectomy age 35. BSO age 36. carpel tunnel surgery. Colonoscopy 11/25/2013 diverticuli sigmoid. bilateral knee replacement Family History: Family History (Last Reviewed 09/26/16 @ 09:44 by Bishnu Gomez MD) Father Diabetes High blood pressure Mother High blood pressure Congestive heart failure Kidney disease - Social History Smoking status: Never smoker Substance use type: does not use Alcohol intake frequency: holidays/special occasions only Household members: spouse Current occupational status: unemployed Physical Exam - Limitations Limitations: altered mental status - General General appearance: alert (confused) - Normal Exams: Head:: Normocephalic without trauma Eyes:: Pupils are PERRLA w/ EOMI, No scleral icterus, irritation, or foreign bodies noted ENMT:: No facial trauma, nasal exudates, pharyngeal erythema, or exudates are noted Neck:: Full range of motion, without adenopathy, JVD, bruits or thyromegaly Chest/Respirations:: Clear all esquivel, with good airflow, and symmetry bilaterally Cardiovascular:: Regular rate and rhythm, without murmur or gallop, Pulses 2+ all extremities, capillary refill, <2 seconds all extremities Abdomen:: Bowel sounds positive, soft, non-tender, non-distended, no hepatosplenomegaly, masses or bruits noted Lymphatic:: No lymphadenopathy, or lymphedema noted Integumentary:: No rashes, hives, or bruising noted, hair and nails, without abnormality - Extremities Exam Extremities exam: Present: other (patient has bilateral knee replacements, right knee is mildly swollen and quite tender to palpation, without deformity) - Neurological Exam Neurological exam: Present: alert, CN II-XII intact, reflexes normal, other (it appears to have significant ataxia without motor or sensory deficit). Absent: oriented X3, motor sensory deficit - Psychiatric Psychiatric exam: Present: normal mood. Absent: depressed, agitated, flat affect, manic, homicidal ideation, suicidal ideation Course Vital Signs Temperature 97.8 F 09/27/17 02:38 Pulse Rate 74 09/27/17 02:38 Respiratory Rate 12 09/27/17 02:38 Blood Pressure 152/74 H 09/27/17 02:38 Pulse Oximetry 88 L 09/27/17 02:38 Temperature 97.8 F 09/27/17 02:38 Pulse Rate 60 09/27/17 03:49 Respiratory Rate 12 09/27/17 02:38 Blood Pressure 105/50 09/27/17 03:49 Pulse Oximetry 93 09/27/17 03:49 Fall - MDM Narrative Medical decision making narrative: Patient had an immediate CT head and C-spine - normal CBC - n CMP - n EtOH - n UA/UDS - n positives only for her prescription medications. Patient continues to be severely confused and lethargic, but maintains her O2 sats saturations on her normal 2 L by nasal cannula. We attempted to stand the patient with assistance, however the patient is severely ataxic, unable to bear weight, and is unable to hold herself up without 2 person assistance. Case is discussed with Dr. Renzo Garcia, patient will be admitted for observation on telemetry, and occupational/physical therapy evaluation and continued medication evaluation in the morning - Lab Data Result diagrams: 09/27/17 03:22 09/27/17 03:21 Lab Results 09/27/17 09/27/17 09/27/17 Range/Units 03:02 03:21 03:22 WBC (4.5-11.0) T/MM3 RBC (4.00-5.20) M/MM3 Hgb (12-16) GM/DL Hct (36-46) % MCV (80-100) UM3 MCH (26-34) UUG MCHC (31-37) GM/DL RDW Std Deviation (36.9-50.2) FL Plt Count (130-400) T/MM3 MPV (9.4-12.4) UM3 Immature Gran % (Auto) (0.0-0.5) % Neut % (Auto) (33-66) % Lymph % (Auto) (23-45) % [place] % (Auto) (0-9.0) % Eos % (Auto) (0-4) % Baso % (Auto) (0-2) % Neut # (Auto) (1.8-7.7) T/MM3 Lymph # (Auto) (1-4.8) T/MM3 [place] # (Auto) (0-0.8) T/MM3 Eos # (Auto) (0-0.5) T/MM3 Baso # (Auto) (0-0.2) T/MM3 Abs Immat Gran (auto) (0.00-0.03) T/MM3 Turbidity < 20 (0-20) Sodium 145 (136-146) MEQ/L Potassium 3.7 (3.6-5) MEQ/L Chloride 103 (98-107) MEQ/L Carbon Dioxide 30 (22-30) MEQ/L Anion Gap 12 (5-15) meq/L BUN 7.0 (7-17) MG/DL Creatinine 0.9 (0.7-1.2) mg/dL Estimated Creat Clear 47 (>50) mL/min GFR Calculation 61 (>60) mL/min BUN/Creatinine Ratio 8 (6-26) RATIO Glucose 98 (65-110) MG/DL Calculated Osmolality 277 (261-280) MOSM/KG Calcium 9.9 (8.4-10.2) MG/DL Total Bilirubin 0.60 (0.20-1.30) MG/DL Conjugated Bilirubin 0.00 (0.00-0.30) mg/dL Unconjugated Bilirubin 0.30 (0.00-1.1) mg/dL Icterus Index < 2 (0-7) AST 31 (14-36) U/L ALT 15 (1-35) U/L Alkaline Phosphatase 72 (38-126) U/L Total Protein 7.7 (6.3-8.2) g/dL Albumin 4.4 (3.5-5.0) g/dL Globulin 3.3 (2.4-3.6) G/DL Albumin/Globulin Ratio 1.3 (1.1-2.2) RATIO Plasma Lactate 0.9 (0.6-2.2) MMOL/L Specimen Hemolysis < 15 (0-25) Ur Collection Type Urine, void-cc/notcc Urine Color Yellow (YELLOW) Urine Clarity Clear Urine pH 6.0 (5.0-8.0) Ur Specific [place] >=1.030 H (1.015-1.025) Urine Protein Trace A (NEGATIVE) Urine Glucose (UA) Negative (NEGATIVE) Urine Ketones Negative (NEGATIVE) Urine Occult Blood Negative (NEGATIVE) Urine Nitrate Negative (NEGATIVE) Urine Bilirubin Negative (NEGATIVE) Urine Urobilinogen 0.2 (NORMAL) EU/DL Ur Leukocyte Esterase Negative (NEGATIVE) Urinalysis Comment Microscopic not ind. Urine Opiates Screen (Negative) ng/mL Ur Oxycodone Screen (Negative) ng/mL Urine Methadone Screen (Negative) ng/mL Ur Propoxyphene Screen (Negative) ng/mL Ur Barbiturates Screen (Negative) ng/mL U Tricyclic Antidepress (Negative) ng/mL Ur Phencyclidine Scrn (Negative) ng/mL Ur Amphetamines Screen (Negative) ng/mL U Methamphetamines Scrn (Negative) ng/mL U Benzodiazepines Scrn (Negative) ng/mL Urine Cocaine Screen (Negative) ng/mL U Cannabinoids Screen (Negative) ng/mL Ur Drug Screen Confirm Alcohol, Quantitative <10 (<10) mg/dL 09/27/17 09/27/17 09/27/17 Range/Units 03:22 03:22 03:22 WBC 6.2 (4.5-11.0) T/MM3 RBC 4.26 (4.00-5.20) M/MM3 Hgb 12.8 (12-16) GM/DL Hct 40.2 (36-46) % MCV 94.4 (80-100) UM3 MCH 30.0 (26-34) UUG MCHC 31.8 (31-37) GM/DL RDW Std Deviation 43.0 (36.9-50.2) FL Plt Count 160 (130-400) T/MM3 MPV 10.3 (9.4-12.4) UM3 Immature Gran % (Auto) 0.3 (0.0-0.5) % Neut % (Auto) 51.3 (33-66) % Lymph % (Auto) 32.1 (23-45) % [place] % (Auto) 8.7 (0-9.0) % Eos % (Auto) 7.1 H (0-4) % Baso % (Auto) 0.5 (0-2) % Neut # (Auto) 3.2 (1.8-7.7) T/MM3 Lymph # (Auto) 2.0 (1-4.8) T/MM3 [place] # (Auto) 0.5 (0-0.8) T/MM3 Eos # (Auto) 0.4 (0-0.5) T/MM3 Baso # (Auto) 0.0 (0-0.2) T/MM3 Abs Immat Gran (auto) 0.02 (0.00-0.03) T/MM3 Turbidity (0-20) Sodium (136-146) MEQ/L Potassium (3.6-5) MEQ/L Chloride (98-107) MEQ/L Carbon Dioxide (22-30) MEQ/L Anion Gap (5-15) meq/L BUN (7-17) MG/DL Creatinine (0.7-1.2) mg/dL Estimated Creat Clear (>50) mL/min GFR Calculation (>60) mL/min BUN/Creatinine Ratio (6-26) RATIO Glucose (65-110) MG/DL Calculated Osmolality (261-280) MOSM/KG Calcium (8.4-10.2) MG/DL Total Bilirubin (0.20-1.30) MG/DL Conjugated Bilirubin (0.00-0.30) mg/dL Unconjugated Bilirubin (0.00-1.1) mg/dL Icterus Index (0-7) AST (14-36) U/L ALT (1-35) U/L Alkaline Phosphatase (38-126) U/L Total Protein (6.3-8.2) g/dL Albumin (3.5-5.0) g/dL Globulin (2.4-3.6) G/DL Albumin/Globulin Ratio (1.1-2.2) RATIO Plasma Lactate (0.6-2.2) MMOL/L Specimen Hemolysis (0-25) Ur Collection Type Urine Color (YELLOW) Urine Clarity Urine pH (5.0-8.0) Ur Specific [place]ancock (1.015-1.025) Urine Protein (NEGATIVE) Urine Glucose (UA) (NEGATIVE) Urine Ketones (NEGATIVE) Urine Occult Blood (NEGATIVE) Urine Nitrate (NEGATIVE) Urine Bilirubin (NEGATIVE) Urine Urobilinogen (NORMAL) EU/DL Ur Leukocyte Esterase (NEGATIVE) Urinalysis Comment Urine Opiates Screen Negative (Negative) ng/mL Ur Oxycodone Screen Positive (Negative) ng/mL Urine Methadone Screen Negative (Negative) ng/mL Ur Propoxyphene Screen Negative (Negative) ng/mL Ur Barbiturates Screen Negative (Negative) ng/mL U Tricyclic Antidepress Negative (Negative) ng/mL Ur Phencyclidine Scrn Negative (Negative) ng/mL Ur Amphetamines Screen Negative (Negative) ng/mL U Methamphetamines Scrn Negative (Negative) ng/mL U Benzodiazepines Scrn Positive (Negative) ng/mL Urine Cocaine Screen Negative (Negative) ng/mL U Cannabinoids Screen Negative (Negative) ng/mL Ur Drug Screen Confirm Sent out Alcohol, Quantitative (<10) mg/dL Disposition Clinical Impression: Lethargy, Unable to stand up Disposition: 02 To OBS [facility] [place] Condition: Stable Prescriptions: No Action Losartan [Cozaar] 50 mg PO DAILY Lactulose Bulk Oral Liq [Enulose] 20 g PO TID PRN PRN Reason: Prn Orders FLUoxetine [Prozac] 20 mg PO BID Oxycodone/Apap 10/325 [Percocet 10/325] 1 tab PO Q4H PRN PRN Reason: Prn Orders Ondansetron [Zofran Odt] 1 tab PO Q6HR PRN #20 tab PRN Reason: Nausea pramipexole 0.125 mg tablet 0.125 mg PO .COMPLEX #60 tab Xanax (alprazolam) 0.25 mg tablet 0.25 mg PO TID PRN #90 tab PRN Reason: anxiety trazodone 100 mg tablet 100 mg PO DAILY #30 tab Neurontin (gabapentin) 300 mg capsule 300 mg PO TID 90 Days #450 cap Protonix (Pantoprazole)40 mg tablet,delayed release 40 mg PO BID #120 tab Norvasc (amlodipine) 5 mg tablet 5 mg PO Q12HR PRN #60 tab PRN Reason: hypertension Restoril (temazepam) 30 mg capsule 30 mg PO DAILY #30 cap scopolamine 1 mg over 3 days transdermal patch 1 patch TD Q3D #12 each Referrals: Kate Sharp [Primary Care Provider] - - Seen By: physician
[2017-09-27] MEDS ORDERED: AMLODIPINE 5 MG TABLET PO PRN (04:59)
[2017-09-27] MEDS ORDERED: ACETAMINOPHEN 650 MG SUPPOSITORY PR PRN (04:59)
[2017-09-27] MEDS ORDERED: NON-FORMULARY MEDICATION 1 EACH EACH (Pramipexole Di-Hcl [Pramipexole Dihydrochloride] 0.1 PO SCH (04:59)
[2017-09-27] MEDS: SALINE FLUSH 10ml SYRINGE IVF PRN (05:30)
[2017-09-27] MEDS: NS 1,000 ML IV SCH ×2 (05:31→15:57)
[2017-09-27 05:34] VITALS: BMI 29.5
--- NOTE | 2017-09-27 05:34 | History & Physical Report ---
History of Present Illness Date: 09/27/17 Chief complaint: weak HPI: This is a 77 y/o female with a history of chronic pain managed through a pain clinic in [place]. The pateint has a history of RA and has recurrent pain in her joints. The patient was noted to have increased weakness and confusion today. The states that she has not obviously over taken her meds. He does have concerns in this regards. The patient had been seen in [place] earlier. In our ED CT head and neck are normal. Metabolic panel negative. UDS c/w her medications she is taking. This pateint most likely has complications from her chronic narcotic use and will be observation admitted for further PT and OT assessment. Review of Systems Review of systems: no headache, chronic poor vision, no chest pain, occasional cough, no congestion , no fever, chills or sweats, no abdomen pain,no nausea/vomiting, constipation. no focal weakness just genreally increased weakness. Past Medical History Medical History: Medical History (Last Updated 09/27/17 @ 13:52 by China Jones MD) Hyperthyroidism, subclinical (Chronic) Onset Date: ~06/2016 This needs confirmatory lab tests. However the palpable area for which the sonogram and CT wre done does not seem to be present any longer and nothing of consequence was seen on those studies except for a probable lipoma so further imaging studies are not indicated. Hyperlipidemia LDL goal <130 (Chronic) Hypertension (Chronic) Fibromyalgia GERD (gastroesophageal reflux disease) Obstructive sleep apnea Rheumatoid arthritis Dr. Augustina Pressley Carpal tunnel syndrome Chronic insomnia Depression Restless leg syndrome Surgical History: hysterectomy age 35. BSO age 36. carpel tunnel surgery- left. Colonoscopy 11/25/2013 diverticuli sigmoid. bilateral knee replacement. Lumbar fusion; second spinal surgery-level unclear. Exploratory laparotomy. Small bowel obstruction with laparoscopy and bowel resection. Tonsillectomy. Appendectomy. Bilat cataract. Family History: Family History (Last Reviewed 09/26/16 @ 09:44 by Bishnu Gomez MD) Father Diabetes High blood pressure Mother High blood pressure Congestive heart failure Kidney disease Family History: As Above - Social History Smoking status: Never smoker Medications Home Medications Medication Instructions Recorded Confirmed Type Neurontin (gabapentin) 300 mg 300 mg PO TID 90 Days #450 cap 08/08/16 09/27/17 History capsule pramipexole 0.125 mg tablet 0.125 mg PO .COMPLEX #60 tab 08/28/16 09/27/17 Rx Protonix (Pantoprazole)40 mg 40 mg PO BID #120 tab 09/13/16 09/27/17 Rx tablet,delayed release Xanax (alprazolam) 0.25 mg tablet 0.25 mg PO TID PRN #90 tab 10/25/16 09/27/17 Rx Norvasc (amlodipine) 5 mg tablet 5 mg PO Q12HR PRN #60 tab 11/18/16 09/27/17 Rx trazodone 100 mg tablet 100 mg PO DAILY #30 tab 11/22/16 09/27/17 Rx Restoril (temazepam) 30 mg capsule 30 mg PO DAILY #30 cap 12/23/16 09/27/17 Rx scopolamine 1 mg over 3 days 1 patch TD Q3D #12 each 01/13/17 09/27/17 Rx transdermal patch FLUoxetine [Prozac] 20 mg PO BID 09/13/17 09/27/17 History Lactulose Bulk Oral Liq [Enulose] 20 g PO TID PRN 09/13/17 09/27/17 History Losartan [Cozaar] 50 mg PO DAILY 09/13/17 09/27/17 History Ondansetron [Zofran Odt] 1 tab PO Q6HR PRN #20 tab 09/13/17 09/27/17 Rx Oxycodone/Apap 10/325 [Percocet 1 tab PO Q4H PRN 09/13/17 09/27/17 History 10/325] Allergies Allergy/AdvReac Type Severity Reaction Status Date / Time Penicillins Allergy Mild RASH Verified 09/27/17 02:53 Ativan Allergy Unknown Uncoded 09/26/17 08:42 Exam Vital Signs: Temperature 97.8 F 09/27/17 02:38 Pulse Rate 56 L 09/27/17 04:45 Respiratory Rate 32 H 09/27/17 04:45 Blood Pressure 140/75 H 09/27/17 04:01 Pulse Oximetry 92 09/27/17 04:45 Telemetry Rhythm: Sinus Rhythm Height/Weight/BMI: Height 1.6 m Weight 75.9 kg - Constitutional Present: mild distress - Routine HEENT Exam Head: Present: normocephalic, atraumatic Eye: Present: EOMI, PERRL ENT: Present: mucous membranes dry - Routine Neck Exam Present: supple - Routine Cardiovascular Exam Present: RRR, S3 - Routine Abdominal Exam Present: soft, non tender - Routine Extremities Exam Present: edema, full ROM - Routine Back/Spine/Pelvis Exam Back/Spine: Present: full ROM - Routine Skin Exam Present: intact, dry - Routine Neurological Exam Present: alert, normal reflexes, abnormal gait, moving all extremities, normal tone, vision grossly intact, hearing grossly intact, normal speech. Absent: oriented X3, motor deficit, nystagmus, facial asymmetry - Routine Psychiatric Exam Present: cooperative. Absent: normal affect, normal thought process Results - Labs CBC & Chem 7: 09/27/17 03:22 09/27/17 03:21 Labs: reviwed and will be discussed below Assessment and Plan (1) Metabolic encephalopathy Current visit: Yes Status: Acute Assessment and Plan: 1. metabolic encephalopathy acute POA: probable medication related, narcs. also benzo. ct head neg. ct neck neg. metabolic panel normal. hold all mood altering meds and monitor. Not want to use narcan just yet as she is maintaining airway fine. 2. chronic pain POA: managed through pain cliniic in [place]. works with administration of meds. Patient has not had ahistory of misue. 3. RA chronic POA: gets biologic infusion regularly, part of patients gait issues and chroniic pain issues 4. HTN chronic POA: continue norvasc. 5. DVT ppx; SCD, lovenox DVT Prophylaxis: SCD's, Lovenox Resuscitation Status: Full Code - Time spent with patient Time with patient PN: 30 minutes - Physician Narrative Physician: China Jones MD, Rush Beltrán MD Narrative: Date: 09/27/17 Time: 1350 Dr. Garcia's note reviewed. Mrs. Marquez Angulo interviewed and examined. Supplemental history obtained from her . CC: Falls/confusion HPI: Mrs. Marquez is a 77-year-old female with chronic pain due to fibromyalgia and rheumatoid arthritis. She is followed by Dr. Bertrand (possibly at Dr. [facility] pain clinic) for pain management and Dr. Pressley for rheumatoid arthritis. The patient reports having been evaluated in [place] emergency room once and possibly twice within the past week for right knee pain; she thinks she was seen on Friday or possibly yesterday and was hospitalized overnight and discharged the following day. X-rays of her knee were obtained and she was told nothing was broken. She initially reports that she couldn't walk on her right leg due to knee pain and that after returning home she did fairly well walking with her walker until she had a jerking episode while walking causing her to fall directly on the right knee and causing excruciating pain. She indicates having a second fall early this morning getting up to the bathroom prompting hospitalization. Unclear if there were 1 or 2 falls although her reports that he heard a "thud" at approximately 1 AM and found the patient on the floor near her bed and believe she was trying to get up to go to the bathroom. He couldn't understand anything she was saying and reports she was speaking incoherently. EMS was alerted and the patient transferred to the emergency room. The patient was hypoxic on room air and with supplemental oxygen level of alertness improved partially. indicated the patient was more alert progressively during ER assessment but had not returned to baseline and expressed concern about excess narcotic use. Emergency room provider received report from [facility] for x-rays of the patient's knees taken there were negative several days ago. This morning the patient reports that she can't walk due to pain in her right knee. She reports her in right knee is swollen and hot. Her described bruising and pain in her right foot which the patient was not aware of. expressed concern that she had some left facial droop but patient indicates that she always has minor drooping of the left side of her mouth when she stressed and actually went to the left side of her mouth before being advised was concerned about the left. Imaging of the head and cervical spine in the ER was unremarkable earlier this morning and the patient is hospitalized for serial neurological exams. Urine drug screen was positive for oxycodone and benzodiazepines. PH/SH/FH: agree with that recorded above by Dr. Garcia with additions previously made by me; patient is on a biologic agent which she receives in the office every other month. She reports using 2 L of supplemental oxygen at night. Her primary care physician is Dr. Kate Sharp and DPOA is shared by her and daughter Katharine. Patient reports she does not want to go on her breathing machine under any circumstances nor does she want to be alive under hopeless circumstances. ROS: 10 point review as described by Dr. Garcia with notation patient does have occasional nausea and chronic constipation requiring medications. She describes chronic right shoulder pain due to arthritis and chronic low back pain. Remainder of review of systems is negative or as per history of present illness. EXAM: General-confused female-provides disjointed history which is often inconsistent ; oriented to [facility], September 2017; fluent speech; 96.2, 73, 16, 138/ 60, 95% on 2 L HEENT-PERRL, EOMI without nystagmus, conjunctiva clear, sclera anicteric, conjugate gaze, very minor drooping of the left side of the mouth with smile, tongue midline, oropharynx clear, neck supple and without adenopathy Lungs-respirations nonlabored, good airflow, breath sounds clear Cardiac-regular rhythm, S1 and S2, soft systolic murmur Abd-soft, bowel sounds present, mild generalized tenderness without guarding Ext-without edema Musculoskeletal-right knee with moderate soft tissue swelling and generalized tenderness to palpation-tender medially, laterally, and to patella ballottement ; soft tissue swelling appears to be primarily in this suprapatellar bursa and there is moderate bruising over the knee. There is additionally bruising over the mid and lateral right foot which is tender to palpation diffusely. No soft tissue swelling or tenderness noted on the right knee. Patient resists flexion of the right knee although I was able to passively flex it to approximately 80. Skin-No skin tears or wounds noted, no generalized rash Neuro-cranial nerves 3-12 grossly intact except minor drooping of the left side of the lip; grips symmetric 4+/5, unable to fully raise right arm at the shoulder to assess drift due to shoulder injury; unable to raise right leg off of bed; raise his left leg off the bed and hold up against gentle resistance; plantar flexion/dorsiflexion intact. Sensation intact to light touch 4 extremities Psych-pleasant, cooperative, confused DATA: CBC, CMP, urinalysis all unremarkable; urine drug screen positive for oxycodone and benzos. Lactic acid 0.9-0.7. CT head without acute intracranial abnormality by my review. CT cervical spine reported negative for fracture although multilevel degenerative change described by radiology. 3 views of the right knee obtained-no evidence of fracture by my review, prior TKA. A/P: Metabolic encephalopathy Right knee/foot pain, post falls Right knee effusion Ambulatory dysfunction Chronic pain Rheumatoid arthritis Hypertension Chronic insomnia Obstructive sleep apnea/nocturnal hypoxia Patient is apparently more alert than she was on presentation to the emergency room. Patient's currently not at bedside but will be in later today to better assess where she is relative to baseline. PT/OT evaluation this morning recommended rehabilitation as she is currently unable to ambulate or weight bear on the right. Will resume Percocet as this is a chronic medication and dose can be monitored closely in this environment. Patient reports typically taking 2 or 3 doses daily and never more than 4 so 4 times a day dosing ordered. Attempting to clarify some additional home medications as patient describes several discrepancies with home medication list entered in the computer overnight. Patient initially agreed to inpatient rehabilitation but currently refusing to consider inpatient stay and denies prior agreement. Suspect ongoing confusion present. Will clarify CODE STATUS with the patient's before entering DO NOT INTUBATE order due to my concern that patient may not understand what she told me. X-rays of right foot are being obtained due to bruising and pain identified after initial eval. Continue low-volume fluids at present, resume home regimen for depression and hypertension. 2 L supplemental oxygen at bedtime as per home regimen. Anticipate making further medication changes after her brings in home medications and can't further clarify more accurately what she is on. Hospital Course Summary Disclaimer: The visit summary below is not to be considered part of the above Progress Note.
[2017-09-27] MEDS: POLYETHYL GLYCOL 3350 17gm PACKET PO SCH ×2 (08:49→08:55)
[2017-09-27] MEDS: FLUoxetine 20 MG CAPSULE PO SCH ×2 (08:49→20:55)
[2017-09-27] MEDS: ENOXAPARIN 40 MG/0.4 ML INJECTION SQ SCH (08:52)
[2017-09-27] MEDS: PANTOPRAZOLE 40 MG TABLET PO SCH ×2 (08:52→20:09)
[2017-09-27] MEDS: ONDANSETRON 4 MG/2 ML INJECTION IVP PRN ×2 (09:56→15:51)
[2017-09-27] MEDS ORDERED: LACTULOSE 20 GM/30 ML ORAL LIQUID PO PRN (11:26)
[2017-09-27] MEDS: Oxycodone/Apap 10/325 1 TAB PO PRN ×2 (15:39→20:09)
[2017-09-27] MEDS: AMLODIPINE 5 MG TABLET PO SCH (20:54)
[2017-09-27] MEDS: PRAMIPEXOLE 0.25 MG TABLET PO SCH (20:54)
[2017-09-27] MEDS ORDERED: TEMAZEPAM 30 MG CAPSULE PO PRN (21:40)
[2017-09-27] MEDS ORDERED: TRAZODONE 100 MG TABLET PO PRN (21:40)
[2017-09-28] MEDS: NS 1,000 ML IV SCH ×2 (02:00→13:00)
[2017-09-28] MEDS: Oxycodone/Apap 10/325 1 TAB PO PRN ×4 (02:01→17:54)
[2017-09-28] MEDS: PANTOPRAZOLE 40 MG TABLET PO SCH ×2 (06:42→20:05)
[2017-09-28] MEDS: SALINE FLUSH 10ml SYRINGE IVF PRN (09:08)
[2017-09-28] MEDS: ONDANSETRON 4 MG/2 ML INJECTION IVP PRN ×2 (09:09→16:10)
[2017-09-28] MEDS: AMLODIPINE 5 MG TABLET PO SCH ×2 (09:17→20:05)
[2017-09-28] MEDS: FLUoxetine 20 MG CAPSULE PO SCH ×2 (09:18→20:05)
[2017-09-28] MEDS: ENOXAPARIN 40 MG/0.4 ML INJECTION SQ SCH (09:18)
[2017-09-28] MEDS: POLYETHYL GLYCOL 3350 17gm PACKET PO SCH (09:19)
--- NOTE | 2017-09-28 13:18 | CT Scan Report ---
Indication: fall, head injury PROCEDURE: CT cervical spine wo con: Encounter: Initial Comparison: None Technique: Axial CT images through the cervical spine were performed without contrast. Coronal and sagittal reformatted images were also obtained. Automated Exposure Control and Iterative Reconstruction dose reducing techniques were utilized. FINDINGS: The alignment of the cervical spine shows degenerative grade 1 anterolisthesis of C3 on C4 and mild scoliosis. Multilevel degenerative changes are present. There is no evidence of acute fracture or subluxation of the cervical spine. The atlantoaxial articulation, dens, and upper cervical spine demonstrate no subluxation. The paraspinal soft tissues and spinal canal appear unremarkable. IMPRESSION: No acute traumatic abnormality of the cervical spine. There is a preliminary report by [employer]. .
--- NOTE | 2017-09-28 13:19 | CT Scan Report ---
Indication: fall, head injury PROCEDURE: CT head/brain wo con: Encounter: Initial Comparison: February 27, 2014 Technique: Axial CT images through the head were performed without contrast. Iterative Reconstruction dose reducing technique was utilized. FINDINGS: The ventricles are of normal size, shape, and contour for the patient's age. There are scattered areas of low attenuation in the white matter which most likely represent changes from chronic microvascular ischemia. The brainstem, cerebellum, and cerebral hemispheres otherwise have a normal morphology and CT attenuation. There is no evidence of midline displacement. No hemorrhage, signs of acute territorial stroke, mass effect, mass lesions, or edema is evident. The visualized portions of the skull base, midface, and calvarium demonstrate no abnormality. The paranasal sinuses are well aerated and free of significant disease. The tympanic and mastoid cavities appear normal. IMPRESSION: No acute intracranial abnormality or hemorrhage. There is a preliminary report by [employer] [facility]. .
--- NOTE | 2017-09-28 13:58 | XRay Report ---
Indication: fall, pain PROCEDURE: XR knee RT 3V: Encounter: Initial Comparison: None Findings: There is no acute fracture, dislocation or malalignment identified. Total knee prosthesis appears intact. Impression: No acute osseous abnormality. .
--- NOTE | 2017-09-28 13:59 | XRay Report ---
Indication: fall/pain/extensive lateral bruising PROCEDURE: XR foot RT 2V: Encounter: Initial Comparison: None Findings: There is no acute fracture, dislocation or malalignment identified. Calcaneal spurring. Impression: No acute osseous abnormality. .
--- NOTE | 2017-09-28 18:19 | Discharge Summary ---
Discharge Information Date of admission: 09/27/17 04:13 Anticipated date of discharge: 09/28/17 Attending Physician: China Jones MD Primary care physician: Kate Sharp Consults: 09/27/17 IRU Screening [Inpatient Rehab Screening] [CONS] Routine Screen requested by:: Case Management - Discharge Diagnosis (1) Metabolic encephalopathy Status: Acute Problems Reviewed?: Yes Metabolic encephalopathy Right knee/foot pain, post falls Right knee effusion Ambulatory dysfunction Chronic pain Rheumatoid arthritis Hypertension Chronic insomnia Obstructive sleep apnea/nocturnal hypoxia - Laboratory Labs: 09/27/17 03:22 09/27/17 03:21 - Radiology Radiology: CT head without contrast on 09/27/17: FINDINGS: The ventricles are of normal size, shape, and contour for the patient's age. There are scattered areas of low attenuation in the white matter which most likely represent changes from chronic microvascular ischemia. The brainstem, cerebellum, and cerebral hemispheres otherwise have a normal morphology and CT attenuation. There is no evidence of midline displacement. No hemorrhage, signs of acute territorial stroke, mass effect, mass lesions, or edema is evident. The visualized portions of the skull base, midface, and calvarium demonstrate no abnormality. The paranasal sinuses are well aerated and free of significant disease. The tympanic and mastoid cavities appear normal. IMPRESSION: No acute intracranial abnormality or hemorrhage. ----- CT cervical spine without contrast on 09/27/17: FINDINGS: The alignment of the cervical spine shows degenerative grade 1 anterolisthesis of C3 on C4 and mild scoliosis. Multilevel degenerative changes are present. There is no evidence of acute fracture or subluxation of the cervical spine. The atlantoaxial articulation, dens, and upper cervical spine demonstrate no subluxation. The paraspinal soft tissues and spinal canal appear unremarkable. IMPRESSION: No acute traumatic abnormality of the cervical spine. ----- 3 views of the right knee on 09/27/17 were without evidence of fracture, dislocation, or malalignment. Knee prosthesis was intact. ----- 2 views of the right foot on 09/27/17 demonstrated calcaneal spurring but no evidence of acute fracture or other bony abnormality. History of Present Illness HPI: This is a 77 y/o female with a history of chronic pain managed through a pain clinic in [place]. The pateint has a history of RA and has recurrent pain in her joints. The patient was noted to have increased weakness and confusion today. The states that she has not obviously over taken her meds. He does have concerns in this regards. The patient had been seen in [place] earlier. In our ED CT head and neck are normal. Metabolic panel negative. UDS c/w her medications she is taking. The patient most likely has complications from her chronic narcotic use and will be observation admitted for further PT and OT assessment. Objective Vital signs: Temperature 98.2 F 09/28/17 07:00 Pulse Rate 65 09/28/17 07:00 Respiratory Rate 18 09/28/17 17:54 Blood Pressure 134/60 09/28/17 07:00 Pulse Oximetry 97 09/28/17 07:00 NAD, alert, fluent speech and able to carry on a coherent conversation today maintaining linear train of thought. Respirations nonlabored, good airflow, breath sounds clear Regular rhythm Right knee with less soft tissue swelling today than yesterday, patient is able to actively flex the knee to approximate 70 Persistent discomfort on palpation of the right foot but no swelling appreciated Rhythm: Normal Sinus Rhythm Height/Weight/BMI: Height 1.6 m Weight 79.2 kg Body Mass Index 29.5 Hospital Course This is a general summary of the patient's hospital course. For more details refer to the complete medical record. Hospital course: Mrs. Alma Angulo was hospitalized early on the morning of 09/27 due to altered level of consciousness, right knee pain, and inability to ambulate after at least 2 recent falls with knee injury. There was no clear indication of cause of her confusion on presentation although chronic medication use was initially suspected. The patient's brought all pill bottles into the hospital later in the day on 09/27 and there was no evidence of excess Percocet use; the patient reports that her has been getting pills for her due to her difficulty ambulating so it was impossible for her to have inadvertently taken an extra dose of Percocet by mistake prior to admission. I can't exclude mild concussion following her fall although she does not describe a direct head injury. Mental status was significantly improved on 09/28 and much less anxiety was demonstrated on the than present initially. The patient was unable to bear weight on her right leg on admission due to knee pain occurring as a result of the fall prior to admission. The knee was swollen but there was no evidence of fracture or dislocation by x-ray. The patient resisted any movement of her knee on the date of admission but was able to flex the knee to approximate 70 on 09/28. Swelling was improving prior to discharge. Bruising and tenderness of the right foot was noted by her although the patient was not aware of it and does not recall direct injury to the foot. X- ray again revealed no fractures and the patient was able to tolerate limited weightbearing on 09/28 although direct palpation remained uncomfortable. No additional problems were encountered during the hospital course. Blood pressure is stable and home medications have been resumed as her level of consciousness has cleared and permitted doing so. Physical therapy and occupational therapy evaluated Mrs. Alma Angulo on admission and recommended inpatient rehabilitation for strengthening and gait training. The patient was initially reluctant to consider transfer but after reconsideration she agreed to discharge to IRU and was accepted for transfer on 09/28. Time spent with patient: discharge greater than 30 minutes Resuscitation Status: Do Not Intubate Discharge Plan - Discharge Disposition Discharge Date: 09/28/17 Disposition: [address] [facility] *Condition: Stable Reason For Visit (Visit label in EMR): fall, unable to stand - Discharge Medications *Discharge Medications: Continue Losartan [Cozaar] 50 mg PO DAILY Lactulose Bulk Oral Liq [Enulose] 20 g PO TID PRN PRN Reason: Prn Orders FLUoxetine [Prozac] 20 mg PO DAILY Oxycodone/Apap 10/325 [Percocet 10/325] 1 tab PO Q4H PRN PRN Reason: Prn Orders Amlodipine Besylate [Norvasc] 5 tab PO BID Pantoprazole Sodium [Protonix] 40 mg PO DAILY Ondansetron [Zofran Odt] 1 tab PO Q6HR PRN #20 tab PRN Reason: Nausea Fluconazole [Diflucan] 1 tab PO PRN Folic Acid [Folate] 1 tab PO DAILY Doxepin 0.3 ml PO HS Pramipexole Di-HCl [Mirapex] 0.25 mg PO HS trazodone 100 mg tablet 100 mg PO DAILY #30 tab Restoril (temazepam) 30 mg capsule 30 mg PO DAILY #30 cap - Discharge Packet/Instructions *Diet: Regular *Activity: Per PT/OT *Pain Management/Treatment: As directed by pain management physician *Wound Care: Not applicable Additional Instructions: Continue ice packs to right knee as needed *Expected Signs/Symptoms: Knee pain and swelling, unstable gait, generalized weakness *Notify Physician if: Falls *During Business Hours Contact: Notify nursing of concerns so physician can be contacted *After Business Hours Contact: As above *Pending Lab/Results: No Pending Lab - IRU/GEN Discharge/Transfer - Referrals/Follow Up - Patient Handouts - Dismissal Complete Discharge Instructions are:: Complete Physician Narrative - Narrative Attestation Narrative: Date: 09/28/17 Time: 1815
[2017-09-28 19:52] VITALS: BP 142/66; RESP 16; TEMP 97.8; O2SAT 96
[2017-09-28] MEDS: PRAMIPEXOLE 0.25 MG TABLET PO SCH (20:04)
[2017-09-28] MEDS ORDERED: DOXEPIN PO SCH (21:00)
[2017-09-28] MEDS ORDERED: TEMAZEPAM 30 MG CAPSULE PO SCH (21:00)
[2017-09-28] MEDS ORDERED: TRAZODONE 100 MG TABLET PO SCH (21:00)
[2017-09-28 22:10] VITALS: PULSE 62
== END 2017-09-28 19:20 ==
LOC: ED 02:38 → EDHOLD 02:38 → SUATTDRO 04:13 → EDHOLD 05:05 → MED 05:05
PROVIDERS: ADMIT Emergency Medicine; ATTEND Internal Medicine

== ENCOUNTER 2017-09-28 21:20 | Inpatient (IN) ==
[2017-09-28] MEDS ORDERED: ONDANSETRON 4 MG/2 ML INJECTION IVP PRN (22:01)
[2017-09-28] MEDS ORDERED: LACTULOSE 20 GM/30 ML ORAL LIQUID PO PRN (22:01)
[2017-09-28] MEDS ORDERED: SALINE FLUSH 10ml SYRINGE IVF PRN (22:01)
[2017-09-28] MEDS ORDERED: NS 1,000 ML IV SCH (22:01)
[2017-09-28] MEDS: Oxycodone/Apap 10/325 1 TAB PO PRN (22:17)
[2017-09-29 00:11] VITALS: BMI 29.6
[2017-09-29] MEDS ORDERED: FALL RISK - PHARMACY CONSULT MC ONE (01:00)
[2017-09-29] MEDS: Oxycodone/Apap 10/325 1 TAB PO PRN ×4 (02:17→14:30)
[2017-09-29] MEDS ORDERED: PANTOPRAZOLE 40 MG TABLET PO SCH ×2 (06:30→09:00)
[2017-09-29] MEDS: ONDANSETRON ODT 4 MG TABLET PO PRN (08:10)
[2017-09-29] MEDS: POLYETHYL GLYCOL 3350 17gm PACKET PO SCH (08:50)
[2017-09-29] MEDS: ENOXAPARIN 40 MG/0.4 ML INJECTION SQ SCH (08:58)
[2017-09-29] MEDS: AMLODIPINE 5 MG TABLET PO SCH ×2 (08:58→20:06)
[2017-09-29] MEDS ORDERED: FLUoxetine 20 MG CAPSULE PO SCH (09:00)
--- NOTE | 2017-09-29 11:17 | IRU History & Physical Report ---
[facility] IRU Date: Date: 09/29/17 Time: 1100 Chief complaint: My knee hurts HPI: Ms. Alma Angulo is a 77-year-old female with reported history of rheumatoid arthritis and fibromyalgia on chronic pain medication. She is followed by Dr. Augustina Pressley in [place] with regard to her rheumatoid arthritis and receives a monthly infusion in this regard. She sees Dr. Tim Coker office ([facility]) with regard to pain management. The patient reports that she had fallen a couple of days prior to the current admission (that would have been on roughly 09/25/2017). She fell on the right knee. She was seen at [place] emergency department and admitted overnight for observation. Reportedly radiographs of the knees were negative at that time. She was then at home on the night of 09/27/2017. She and her sleep in separate rooms. He heard a noise in the other room and found the patient on the floor. While she was conscious she was incoherent, confused and lethargic. EMS was called and she was hypoxemic which is rapidly reversed with supplemental oxygen. (The patient apparently does use oxygen at night along with nasal CPAP). The patient states that she recalls falling on the night of admission. She was sitting on the edge of her bed reaching over and lost her balance. This caused her to fall to the floor around 1 AM. However she does not remember anything after that and does not remember coming to the hospital. She was admitted to the hospital as an outpatient observation. She was noted to have multiple functional deficits. Initially, the was concerned about possible overuse of narcotic medications. However according to a pill count she had not been overusing the medications and in fact her had apparently been giving them to her at the appropriate times. I interviewed the patient with her daughter present today in her room. The patient states that she was taking one half of a Percocet 10 mg tablet every 4 hours [id number]. Since she has fallen and has the severe right knee pain , she wants to take a whole tablet every 4 hours [id number]. She reports that she sees Dr. Tim Coker and [facility] Polanco for pain management and they have prescribed enough for 6 tablets daily. (I have contacted Dr. Tate's office and left a message for Leanne Bertrand to contact me back to review her pain medication regimen.) The patient also sees Dr. Augustina Pressley for rheumatoid arthritis. She was on gabapentin. The patient felt as though it caused too much confusion and weakness and therefore that has now been discontinued. According to the patient' s daughter, the and the family are not now concerned about excess narcotic usage. She is not currently taking any Xanax but I believe has in the past. After I asked her if she was using Xanax, the patient wondered if she could be on some here. I recommended that we avoid that. Patient and family are most concerned that she gets her medications at night for sleep. These include Restoril 30 mg daily which she has taken for years, trazodone 100 mg daily at bedtime and doxepin 30 mg at at bedtime. She sees Dr. Keyes in [place] for psychiatry. Patient reports that she has severe depression and if she gets depressed she can become seriously ill. In addition she is on Prozac twice daily. The patient requests no intubation but is okay with CPR etc. Urine drug screen at the time of admission was positive for oxycodone and benzodiazepines (patient is on temazepam at bedtime). CT head was without acute abnormality and CT cervical spine was unremarkable for fracture although there was multilevel degenerative change noted. Locations of pain include both wrists, fingers, neck, shoulders, back and right knee. Prior to the current fall the patient states that she did not have pain in the knees beyond her normal amount related to the rheumatoid arthritis. Current providers as an outpatient are as follows: 1. Primary care: Dr. Kate Sharp in [place] 2. Rheumatoid arthritis and fibromyalgia: Heavenly Pressley M.D. 3. Pain management: Alejandro Coker M.D. and [facility]anco 4. Leukocytosis possibly related to previous medication use: Continues to be monitored by Dr. Nelson 5. Psychiatry: Dr. Barron Keyes Prior to the current event, she was modified independent for eating but independent for grooming, upper body dressing and toileting. She was modified independent for bathing, transfers, toilet transfers and walking with a rolling walker or single-point cane indeterminate number of feet. She did require moderate assistance for lower body dressing. Currently the patient is independent for upper body dressing, requires moderate assistance for lower body dressing, maximum assistance for toileting, transfers and toilet transfers. She requires total assistance for walking with a rolling walker 3 feet. The patient lives with her in her own home. They have 2 steps to get into the home with a single handrail. Bathroom does have a walk-in shower and seat and hand-held shower device along with a raised toilet seat with bars. The patient advised me that she must be out of here in 3-4 days because she does not want to be here. She has agreed to do 3 hours of therapy and her family is in favor of acute rehabilitation. The following medical conditions are noted and require active monitoring and/or management: 1. Generalized debilitation 2. Right knee pain following a fall but was negative radiograph. She has had bilateral total knee replacements. 3. Difficult pain management 4. History of recent confusion after her fall at home with evidence of metabolic encephalopathy-appears to have resolved 5. Rheumatoid arthritis with multiple joint pains 6. Depression 7. Insomnia The following therapies will be needed: 1. Physical therapy: for transfers and ambulation and stairs. 2. Occupational therapy: for ADL's and transfers. 3. Medical management: for the above conditions. 4. 24 hour Rehabilitation Nursing to monitor and address the following: Monitor cognition in view of pain medications and recent confusion. Also monitor for evidence of worsening depression, insomnia, and pain management. [facility], [facility] Patient Stated Medical History Migraine Yes Syncope Yes Cataracts Yes: bilateral removed Hypertension Yes Myocardial Infarction Yes: "mild" Sleep Apnea Yes Gastroesophageal Reflux Yes Disease Hiatal Hernia Yes Other GI Yes: colitis Hx Kidney Stones Yes: in the past Anemia Yes Other Musculoskeletal Yes: rheumatoid arthritis Depression Yes Clinic Medical History (Last Updated 09/27/17 @ 13:52 by China Jones MD) Hyperthyroidism, subclinical (Chronic Medical ~06/2016) This needs confirmatory lab tests. However the palpable area for which the sonogram and CT wre done does not seem to be present any longer and nothing of consequence was seen on those studies except for a probable lipoma so further imaging studies are not indicated. Hyperlipidemia LDL goal <130 (Chronic Medical) Hypertension (Chronic Medical) Carpal tunnel syndrome (Acute Medical) Chronic insomnia (Acute Medical) Depression (Acute Medical) Fibromyalgia (Acute Medical) GERD (gastroesophageal reflux disease) (Acute Medical) Obstructive sleep apnea (Acute Medical) Restless leg syndrome (Acute Medical) Rheumatoid arthritis (Acute Medical) Dr. Augustina Pressley Surgical History: hysterectomy age 35. BSO age 36. carpel tunnel surgery- left. Colonoscopy 11/25/2013 diverticuli sigmoid. bilateral knee replacement. Lumbar fusion; second spinal surgery-level unclear. Exploratory laparotomy. Small bowel obstruction with laparoscopy and bowel resection. Tonsillectomy. Appendectomy. Bilat cataract. Family History: Family History (Last Updated 09/27/17 @ 13:53 by China Jones MD) Father Diabetes High blood pressure Mother Congestive heart failure Kidney disease High blood pressure Brother Cancer of prostate - Social History Smoking status: Never smoker Substance use type: does not use Alcohol intake frequency: holidays/special occasions only Household members: spouse Current occupational status: retired Current residence: Apartment/Private Home Social history: Ms. 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 worked for [email or web address] and is also retired. Review of Systems - Constitutional Constitutional: Present: fatigue, fever(s) (patient reports a fever of 100 at home on one occasion recently. Otherwise no ongoing fever.). Absent: anorexia, chills, headache(s), lethargy, malaise, night sweats, weakness, weight gain, weight loss - EENMT Eyes: Absent: blurry vision, change in vision, diplopia Mouth/Throat: Absent: changes in swallowing, painful swallowing, change in taste , bleeding gums, change in voice - Cardiovascular Cardiovascular: Absent: chest pain, palpitations, syncope, dyspnea on exertion, orthopnea, edema, cyanosis, heart murmur Rhythm: Present: regular rhythm Vascular: Absent: intermittent claudication, pedal edema, unilateral swelling - Respiratory Respiratory: Absent: cough, dyspnea, hemoptysis, dyspnea on exertion, wheezing, pain on inspiration, chest congestion, excessive phlegm production - Gastrointestinal Gastrointestinal: Present: abdominal pain (reports some chronic abdominal pain since the intestinal surgery for obstruction.), nausea (patient reports nausea since being in the hospital. No emesis noted.). Absent: change in bowel habits , constipation, diarrhea, dyspepsia, dysphagia, early satiety, hematochezia, melena, vomiting - Musculoskeletal Musculoskeletal: Present: arthralgias, back pain. Absent: abnormal gait, joint swelling, limited range of motion, muscle weakness - Integumentary/Breasts Integumentary: Absent: alopecia, erythema, lesions, pruritus, rash, jaundice - Neurological Neurological: Present: abnormal gait, frequent falls, weakness. Absent: abnormal movements, abnormal speech, confusion, convulsions, dizziness, focal weakness, headache(s), loss of vision, memory loss, numbness, paresthesias, tremor(s) - Psychiatric Psychiatric: Present: anxiety, depression. Absent: abnormal sleep pattern - Endocrine Endocrine: Absent: cold intolerance, flushing, heat intolerance, palpitations - Hematologic/Lymphatic Hematologic/Lymphatic: Absent: easy bleeding, easy bruising, lymphadenopathy - Allergic/Immunologic Allergic/Immunologic: Absent: urticaria Medications Home Medications Medication Instructions Recorded Confirmed Type trazodone 100 mg tablet 100 mg PO DAILY #30 tab 11/22/16 09/28/17 Rx Restoril (temazepam) 30 mg capsule 30 mg PO DAILY #30 cap 12/23/16 09/28/17 Rx FLUoxetine [Prozac] 20 mg PO BID 09/13/17 09/28/17 History Lactulose Bulk Oral Liq [Enulose] 20 g PO TID PRN 09/13/17 09/28/17 History Losartan [Cozaar] 50 mg PO DAILY 09/13/17 09/28/17 History Ondansetron [Zofran Odt] 1 tab PO Q6HR PRN #20 tab 09/13/17 09/28/17 Rx Oxycodone/Apap 10/325 [Percocet 1 tab PO Q4H PRN 09/13/17 09/28/17 History 10/325] Amlodipine Besylate [Norvasc] 5 tab PO BID 09/28/17 09/28/17 History Doxepin 0.3 ml PO HS 09/28/17 09/28/17 History Enoxaparin [Lovenox] 40 mg SQ DAILY 09/28/17 09/29/17 History Folic Acid [Folate] 1 tab PO DAILY 09/28/17 09/28/17 History Pantoprazole Sodium [Protonix] 40 mg PO DAILY 09/28/17 09/28/17 History Pramipexole Di-HCl [Mirapex] 0.25 mg PO HS 09/28/17 09/28/17 History PEG 3350 17gm PACKET [Miralax] 17 gm PO DAILY 09/29/17 09/29/17 History Allergies Allergy/AdvReac Type Severity Reaction Status Date / Time Penicillins Allergy Mild RASH Verified 09/27/17 02:53 Ativan Allergy Unknown Uncoded 09/26/17 08:42 Results IRU - Labs Labs: Reviewed previous labs etc Exam Vital Signs: Temperature 98.6 F 09/29/17 08:00 Pulse Rate 77 09/29/17 08:00 Respiratory Rate 20 09/29/17 08:00 Blood Pressure 136/70 09/29/17 08:00 Pulse Oximetry 94 09/29/17 08:00 Height/Weight/BMI: Height 1.6 m Weight 75.9 kg Body Mass Index 29.6 - Constitutional Present: mild distress (multiple joint pains, especially right knee), well nourished, well developed, average body habitus, cooperative - Routine HEENT Exam Head: Present: normocephalic, atraumatic. Absent: cushingoid faces, abrasion, laceration, hematoma Eye: Present: EOMI, PERRL. Absent: conjunctival icterus, scleral injection, periorbital swelling, nystagmus ENT: Present: mucous membranes moist, oropharynx clear - Routine Neck Exam Present: supple, full ROM, trachea midline. Absent: lymphadenopathy, thyromegaly, tenderness, swelling - Routine Chest/Breast/Axilla Exam Chest wall: Absent: tenderness, mass Axillae: Absent: lymphadenopathy, mass - Routine Respiratory Exam Present: CTA bilaterally. Absent: accessory muscle use, decreased breath sounds , prolonged expiratory phase, rales, respiratory distress, rhonchi, stridor, wheezes, crackles, distant breath sounds - Routine Cardiovascular Exam Present: RRR, S1, S2, no murmur. Absent: gallop, S3, S4, click, irregular rhythm - Routine Abdominal Exam Present: soft, normoactive bowel sounds, tenderness (mild to palpation), non distended. Absent: rebound, guarding, firm, rigid, organomegaly, mass, hernia, wound - Routine Extremities Exam Present: no edema, non tender, pulses intact, normal capillary refill. Absent: cyanosis, clubbing Comments: Exam of both knees indicates redness and swelling about the right knee. Does not appear to be infected. Redness may be related to the weight of the ice pack on the knee area. She is tender to palpate the patella area. - Routine Back/Spine/Pelvis Exam Back/Spine: Absent: scoliosis, kyphosis - Routine Skin Exam Present: intact, dry, warm. Absent: cyanosis, erythema, pallor, mottling, petechiae, urticaria, lesions, jaundice - Routine Neurological Exam Present: alert, oriented X3, CN II-XII intact, moving all extremities, normal speech - Routine Psychiatric Exam Present: normal affect, normal thought process, cooperative, good insight, good judgment, anxious. Absent: depressed Sepsis Assessment - Evaluation Severe Sepsis: none seen IRU A/P (1) Debilitated patient Current visit: Yes Status: Acute (2) Right knee pain Qualifiers: Chronicity: acute Qualified Code(s): M25.561 - Pain in right knee Current visit: Yes Status: Acute Plain radiograph has been negative. We will monitor this. Consider orthopedic referral if pain continues. (3) Rheumatoid arthritis Qualifiers: Rheumatoid arthritis location: multiple sites Rheumatoid factor presence: unspecified presence Qualified Code(s): M06.9 - Rheumatoid arthritis, unspecified Current visit: No Status: Chronic Patient has history of rheumatoid arthritis involving multiple joints. No active joint inflammation at present with exception of puffiness about the right knee secondary to the recent fall. However she does require regular doses of pain medication both for the knee, rheumatoid arthritis and possible fibromyalgia. We'll discuss with her banner painter in [place] in this regard as well. (4) Depression Qualifiers: Depression Type: major depressive disorder Major depression recurrence: recurrent Active/Remission status: currently active Major depression episode severity: moderate Qualified Code(s): F33.1 - Major depressive disorder, recurrent, moderate Current visit: Yes Status: Chronic DVT Prophylaxis: SCD's, Lovenox Resuscitation Status: Do Not Intubate - Course Hospital Course: Jono Archer MD: - Interventions to Obtain Goals OT Treatment Plan: ADL (Basic Care), Balance Training, IADL, Pt./Family Education, Ther. Exercise for ADL Goals Progress/Modifications: This patient was found at home confused and lethargic. Initially has been was concerned about excessive narcotic pain medication usage but apparently at the present time family is less concerned about that. She has multiple joints which bother her along with fibromyalgia and now has a new injury to the right knee. ( Negative radiograph). She requires close monitoring of her cognitive status in view of the pain medication recently in association with some confusion. I will work with her banner painter as well. She has sustained multiple functional deficits and in this regard would benefit from PT and OT to allow her to return home in independent manner. In addition she is at risk for worsening of her depression.
--- NOTE | 2017-09-29 11:26 | IRU 24Hr Post Admit Eval ---
24 Hr Post Admission Physical - Relevant Changes Relevant Changes: No Reviewed: I have reviewed the patient's information and concur with the finding and results of the pre-admission screen. Certification: I certify the patient for rehabilitation. - Patient Condition (1) Debilitated patient Status: Acute Code(s): R53.81 - Other malaise Classification: Present on IRF Admission, IRF Tx That Should Address Diagnosis, Diagnosis Requiring Medical Follow Up (2) Right knee pain Status: Acute Qualifiers: Chronicity: acute Qualified Code(s): M25.561 - Pain in right knee Code(s): M25.561 - Pain in right knee Classification: Present on IRF Admission, IRF Tx That Should Address Diagnosis, Diagnosis Requiring Medical Follow Up (3) Rheumatoid arthritis Status: Chronic Qualifiers: Rheumatoid arthritis location: multiple sites Rheumatoid factor presence: unspecified presence Qualified Code(s): M06.9 - Rheumatoid arthritis, unspecified Code(s): M06.9 - Rheumatoid arthritis, unspecified Classification: Present on IRF Admission, IRF Tx That Should Address Diagnosis, Diagnosis Requiring Medical Follow Up (4) Depression Status: Chronic Qualifiers: Depression Type: major depressive disorder Major depression recurrence: recurrent Active/Remission status: currently active Major depression episode severity: moderate Qualified Code(s): F33.1 - Major depressive disorder, recurrent, moderate Code(s): F32.9 - Major depressive disorder, single episode, unspecified Classification: Present on IRF Admission, IRF Tx That Should Address Diagnosis, Diagnosis Requiring Medical Follow Up - Prior Functional Status Lives With: Spouse Residence Type: Apartment/Private Home Assitive Devices: Four Wheeled Walker, Straight Cane Prior Functional Status: Depend. at home or school, Depend. w/ IADL - Current Functional Status Current Level of Function: Currently the patient is independent for upper body dressing, requires moderate assistance for lower body dressing, maximum assistance for toileting, transfers and toilet transfers. She requires total assistance for walking with a rolling walker 3 feet. Failed Alternative Therapy: Yes (patient not a candidate for outpatient PT or OT and requires medical supervision.) Patient Requirements: The patient requires oversight by rehabilitation physician to manage their rehabilitation treatment plan and multidisciplinary approach to care that can only be provided in an IRF and requires a multidisciplinary approach to care, provided by professional PTs, OTs, STs, dieticians, RTs, rehabilitation nurses and is not available in lesser levels of care. Limitations Req: ADL Impairment, Limited Mobility Physical Therapy Minutes: 90 Occupational Therapy Minutes: 90 Therapy: The patient is to receive therapy at least 5 days a week. ROM Deficit: Right Lower Extremity - Complications/Comorbidities Impact on Functional Outcomes: Patient's generalized pain and joint pains as well as medications themselves may result in negative impact on functional outcomes. Barriers to Discharge: Weakness, Endurance, Pain Control - Plan to Avoid Complications Plan to Avoid Complications: The patient cannot receive this care in a lesser intensive setting such as [facility] or Outpatient Therapy due to the patient requiring the following : Patient has had recent confusion and lethargy possibly exacerbated by narcotic pain medication along with benzodiazepines and antidepressants. She requires close medical monitoring of her cognitive status, alertness to allow provision of adequate pain relief while avoiding excessive sedation. She requires a multidisciplinary approach with PT and OT in view of the right knee pain. She requires 24-hour nursing supervision and monitoring of her pain as well as avoidance of cognitive decline.
[2017-09-29] MEDS ORDERED: FLUoxetine 20 MG CAPSULE PO ONE (13:24)
--- NOTE | 2017-09-29 13:25 | Consult Note ---
Consult Information - Data of Consult Consult date: 09/29/17 Requesting Physician: Jono Archer MD Primary Care Provider: Ktae Sharp - Consult Narrative Reason for consult: Medical management History of present illness: Carmelina Angulo is a 77 y/o woman seen in consultation from Dr. Archer for medical management. She was hospitalized at [facility] from 09/27/17-09/28/17 for confusion, recent debilitating falls, and right knee pain greatly limiting her ability to bear weight. Her confusion was thought to be related to narcotic use , without evidence of excessive use - she sees Dr. Coker for pain management and takes Percocet. However, her encephalopathy could have been related to hypoxia, as EMS providers found her hypoxic on their arrival. Presently, she recalls falling directly onto her right knee and then falling down, forcing her knee into flexion and her ankle into extreme plantar flexion. During her hospital stay, a CT scan of her head and C-spine were unremarkable. X-rays of her right knee and right foot were also negative for acute fractures. She was evaluated by PT/OT, who recommended IRU. She was accepted and transferred there on 09/28/17. On 09/29/17, she was making progress and was able to ambulate from her room into the dining area using a walker. She reports that her right knee is still swollen and very tender/painful but definitely improving. She states that the bruising and swelling to her right ankle are improving. She has chronic pain to multiple joints b/c of RA and various migrating locations d/t fibromyalgia. She also c/o allergic rhinitis and states that at home she takes Nasacort. She is feeling a bit nauseated but states that frequently happens when she's under stress and she often has to go on a special diet consisting of pudding and broth for about a month to help her stomach return to her typical function. She has chronic abdominal tenderness from multiple surgeries. She feels weak overall but denies dizziness. She feels very depressed considering her functional deficits and being in this environment, and states that she's battled depression her entire life but also is optimistic that this will resolve itself when she is discharged back home. She has urinary urgency which is chronic but denies dysuria. She equally denies fevers, chest pain, dyspnea, sore throat, cough, GERD, constipation, diarrhea, paresthesias, or unilateral weakness. Past Medical History Medical History: Medical History (Last Updated 09/29/17 @ 14:02 by Jasmin Reyes APRN) Hyperthyroidism, subclinical (Chronic) Onset Date: ~06/2016 This needs confirmatory lab tests. However the palpable area for which the sonogram and CT wre done does not seem to be present any longer and nothing of consequence was seen on those studies except for a probable lipoma so further imaging studies are not indicated. Hyperlipidemia LDL goal <130 (Chronic) Hypertension (Chronic) Allergic rhinitis Carpal tunnel syndrome Chronic insomnia Depression Fibromyalgia GERD (gastroesophageal reflux disease) Obstructive sleep apnea Restless leg syndrome Rheumatoid arthritis Dr. Augustina Pressley Surgical History: hysterectomy age 35. BSO age 36. carpel tunnel surgery- left. Colonoscopy 11/25/2013 diverticuli sigmoid. bilateral knee replacement. Lumbar fusion; second spinal surgery-level unclear. Exploratory laparotomy. Small bowel obstruction with laparoscopy and bowel resection. Tonsillectomy. Appendectomy. Bilat cataract. Family History: Family History (Last Updated 09/27/17 @ 13:53 by China Jones MD) Father Diabetes High blood pressure Mother Congestive heart failure Kidney disease High blood pressure Brother Cancer of prostate Family History: As Above - Social History Smoking status: Never smoker Substance use type: does not use Alcohol intake frequency: holidays/special occasions only Current residence: Apartment/Private Home Social history: Primary care: Dr. Kate Sharp in [place] Rheumatoid arthritis and fibromyalgia: Heavenly Pressley M.D. Pain management: Alejandro Coker M.D. and ENMA Polanco Leukocytosis possibly related to previous medication use: Continues to be monitored by Dr. Nelson Psychiatry: Dr. Barron Keyes Review of Systems All systems PM: 10-point ROS was reviewed, no additional remarkable complaints except - Constitutional Constitutional: Present: as per HPI - EENMT Eyes: Present: requires corrective lenses Nose: Present: as per HPI Mouth/Throat: Present: as per HPI, dry mouth - Cardiovascular Cardiovascular: Present: as per HPI Vascular: Absent: pedal edema - Respiratory Respiratory: Present: as per HPI - Gastrointestinal Gastrointestinal: Present: as per HPI - Genitourinary Genitourinary: Present: as per HPI - Musculoskeletal Musculoskeletal: Present: as per HPI - Integumentary/Breasts Integumentary: Absent: rash - Neurological Neurological: Present: as per HPI - Psychiatric Psychiatric: Present: as per HPI - Endocrine Endocrine: Absent: palpitations - Hematologic/Lymphatic Hematologic/Lymphatic: Absent: easy bruising - Allergic/Immunologic Allergic/Immunologic: Present: seasonal rhinorrhea Medications Home Medications Medication Instructions Recorded Confirmed Type trazodone 100 mg tablet 100 mg PO DAILY #30 tab 11/22/16 09/28/17 Rx Restoril (temazepam) 30 mg capsule 30 mg PO DAILY #30 cap 12/23/16 09/28/17 Rx FLUoxetine [Prozac] 20 mg PO BID 09/13/17 09/28/17 History Lactulose Bulk Oral Liq [Enulose] 20 g PO TID PRN 09/13/17 09/28/17 History Losartan [Cozaar] 50 mg PO DAILY 09/13/17 09/28/17 History Ondansetron [Zofran Odt] 1 tab PO Q6HR PRN #20 tab 09/13/17 09/28/17 Rx Oxycodone/Apap 10/325 [Percocet 1 tab PO Q4H PRN 09/13/17 09/28/17 History 10/325] Amlodipine Besylate [Norvasc] 5 tab PO BID 09/28/17 09/28/17 History Doxepin 0.3 ml PO HS 09/28/17 09/28/17 History Enoxaparin [Lovenox] 40 mg SQ DAILY 09/28/17 09/29/17 History Folic Acid [Folate] 1 tab PO DAILY 09/28/17 09/28/17 History Pantoprazole Sodium [Protonix] 40 mg PO DAILY 09/28/17 09/28/17 History Pramipexole Di-HCl [Mirapex] 0.25 mg PO HS 09/28/17 09/28/17 History PEG 3350 17gm PACKET [Miralax] 17 gm PO DAILY 09/29/17 09/29/17 History Allergies Allergy/AdvReac Type Severity Reaction Status Date / Time Penicillins Allergy Mild RASH Verified 09/27/17 02:53 Ativan Allergy Unknown Uncoded 09/26/17 08:42 Exam Vital Signs: Temperature 98.6 F 09/29/17 08:00 Pulse Rate 77 09/29/17 08:00 Respiratory Rate 20 09/29/17 08:00 Blood Pressure 136/70 09/29/17 08:00 Pulse Oximetry 94 09/29/17 08:00 Height/Weight/BMI: Height 1.6 m Weight 75.9 kg Body Mass Index 29.6 - Constitutional Present: no acute distress, well nourished, well developed - Routine HEENT Exam Head: Present: normocephalic Eye: Present: PERRL. Absent: conjunctival icterus, scleral injection ENT: Present: mucous membranes dry - Routine Neck Exam Present: supple - Routine Respiratory Exam Present: CTA bilaterally - Routine Cardiovascular Exam Present: RRR, S1, S2 - Routine Abdominal Exam Present: soft, normoactive bowel sounds, non distended, non tender - Routine Extremities Exam Present: pulses intact, normal capillary refill Comments: Right knee effusion and global tenderness especially over medial and lateral joint lines Right ankle swelling primarily anteriorly. No significant ecchymosis to knee or ankle. - Routine Skin Exam Present: intact, dry, warm - Routine Neurological Exam Present: alert, oriented X3, CN II-XII intact, moving all extremities, vision grossly intact, hearing grossly intact, normal speech. Absent: sensory deficit , motor deficit, altered mental status, facial asymmetry - Routine Psychiatric Exam Present: normal affect, normal thought process, cooperative Results - Labs CBC & Chem 7: 09/29/17 04:29 09/29/17 04:29 Assessment and Plan (1) Right knee pain Current visit: Yes Status: Acute Assessment and Plan: Assessment Metabolic encephalopathy - resolved Right knee/foot pain, post falls Right knee effusion Ambulatory dysfunction Chronic pain Rheumatoid arthritis Hypertension Chronic insomnia Obstructive sleep apnea/nocturnal hypoxia Allergic rhinitis Depression. Plan Admission orders per Dr. Archer reviewed. Pt already showing signs of functional improvement. Pain medications per attending. Change Prozac to 40 mg daily per pt request. Add Flonase to help with allergic rhinitis. Zofran PRN nausea. Continue home meds for HTN, RA, chronic pain. CPAP + O2 HS. Labs on admission to IRU reviewed - mild normocytic anemia, eosinophilia. BMP stable. Thank you for this consult. DVT Prophylaxis: SCD's, Lovenox GI Prophylaxis: Protonix Resuscitation Status: Do Not Intubate - Physician Narrative Physician: China Jones MD Narrative: Date: 09/29/17 Time: 1824 I have independently evaluated and examined this patient. I reviewed the chart, the patient's history, and the MULTIPLE RESAW OPERATOR/PA's documented findings as above. We discussed and formulated the assessment and plan as above with additions as below: Mrs. Alma Angulo is known from her acute hospital stay after she fell on right prosthetic knee resulting in joint effusion and acute pain with inability to weight-bear. She transfer to IRU yesterday evening and reports that pain is improving progressively, but there is less swelling in her right knee today, and that she was able to ambulate a short distance using a walker and assistance this morning. She denies significant pain in her right foot at this time. NAD, alert, pleasant Respirations nonlabored, good airflow, breath sounds clear Regular rhythm, S1-S2, low-grade tachycardia Abdomen soft, nontender Right knee modestly swollen/tender but clearly improved from admission. Continue supportive care/PT/OT. Medications discussed with Dr. Archer who has discussed pain regimen and psychiatric medications with her pain management provider. Hospital Course Summary Disclaimer: The visit summary below is not to be considered part of the above Progress Note. Hospital Course: 09/29/[address] Archer reviewed. Pt already showing signs of functional improvement. Pain medications per attending. Change Prozac to 40 mg daily per pt request. Add Flonase to help with allergic rhinitis. Zofran PRN nausea. Continue home meds for HTN, RA, chronic pain. CPAP + O2 HS. Labs on admission to IRU reviewed - mild normocytic anemia, eosinophilia. BMP stable.
[2017-09-29] MEDS: FLUTICASONE NASAL SPRAY 50mcg EA NOSTRIL SCH (14:42)
[2017-09-29] MEDS: DOXEPIN 10 MG/ML PO SCH ×2 (18:22→20:06)
[2017-09-29] MEDS: Oxycodone/Acetaminophen 5/325 1 TAB PO PRN (20:05)
[2017-09-29] MEDS ORDERED: PRAMIPEXOLE 0.25 MG TABLET PO SCH (21:00)
[2017-09-29] MEDS ORDERED: TRAZODONE 100 MG TABLET PO SCH (21:00)
[2017-09-29] MEDS ORDERED: DOXEPIN 10 MG CAPSULE PO SCH (21:00)
[2017-09-29] MEDS ORDERED: TEMAZEPAM 30 MG CAPSULE PO SCH (21:00)
[2017-09-29] MEDS ORDERED: DOXEPIN PO SCH (21:00)
[2017-09-30] MEDS: Oxycodone/Acetaminophen 5/325 1 TAB PO PRN ×5 (00:10→13:56)
[2017-09-30] MEDS ORDERED: PANTOPRAZOLE 40 MG TABLET PO SCH (06:30)
[2017-09-30 07:25] VITALS: BP 159/66; PULSE 77; RESP 16; TEMP 98; O2SAT 94
[2017-09-30] MEDS: AMLODIPINE 5 MG TABLET PO SCH (08:14)
[2017-09-30] MEDS: ENOXAPARIN 40 MG/0.4 ML INJECTION SQ SCH (08:14)
[2017-09-30] MEDS: ONDANSETRON ODT 4 MG TABLET PO PRN ×2 (08:14→15:34)
[2017-09-30] MEDS: FLUTICASONE NASAL SPRAY 50mcg EA NOSTRIL SCH (08:15)
[2017-09-30] MEDS: POLYETHYL GLYCOL 3350 17gm PACKET PO SCH (08:16)
[2017-09-30] MEDS ORDERED: FLUoxetine 20 MG CAPSULE PO SCH (09:00)
--- NOTE | 2017-09-30 11:11 | IRU Plan of Care ---
[facility] Overall Plan of Care - Date Date: 09/30/17 - Patient Impairments (1) Right knee pain Qualifiers: Chronicity: acute Qualified Code(s): M25.561 - Pain in right knee Code(s): M25.561 - Pain in right knee Status: Acute Classification: Present on IRF Admission, IRF Tx That Should Address Diagnosis, Diagnosis Requiring Medical Follow Up (2) Debilitated patient Code(s): R53.81 - Other malaise Status: Acute Classification: Present on IRF Admission, IRF Tx That Should Address Diagnosis, Diagnosis Requiring Medical Follow Up (3) Depression Qualifiers: Depression Type: major depressive disorder Major depression recurrence: recurrent Active/Remission status: currently active Major depression episode severity: moderate Qualified Code(s): F33.1 - Major depressive disorder, recurrent, moderate Code(s): F32.9 - Major depressive disorder, single episode, unspecified Status : Chronic Classification: Present on IRF Admission, IRF Tx That Should Address Diagnosis, Diagnosis Requiring Medical Follow Up - Relevant Changes Relevant Changes: No Reviewed: I have reviewed the patient's information and concur with the finding and results of the pre-admission screen. Certification: I certify the patient for rehabilitation. - Medical Prognosis Medical Prognosis: Good Vital Signs: Last Vital Signs Temp 98.0 F 09/30/17 07:24 Pulse 77 09/30/17 07:24 Resp 16 09/30/17 07:24 BP 159/66 H 09/30/17 07:24 Pulse Ox 94 09/30/17 07:24 - Anticipated Interventions Anticipated Interventions: The patient requires inpatient IRF care for PT, OT, and/or ST for residuals remaining from [] resulting in muscular weakness and strength deficits. ROM Deficit: Right Lower Extremity Strength Deficits: Right Lower Extremity - Current Functional Status Failed Alternative Therapy: Yes (unsafe, unable to do outpatient) Patient Requires: The patient requires oversight by rehabilitation physician to manage their rehabilitation treatment plan and multidisciplinary approach to care that can only be provided in an IRF and requires a multidisciplinary approach to care, provided by professional PTs, OTs, STs, rehabilitation nurses, and may require STs, dieticians, and RTS. This is not available in lesser levels of care. Physical Therapy Minutes: 90 Occupational Therapy Minutes: 90 Therapy: The patient is to receive therapy at least 5 days a week. - Anticipated LOS/Outcomes Anticipated Functional Outcome: It is anticipated the patient will return to her home with modified independent level of functioning with her assisting her with IADLs and some ADLs. Anticipated Length of Stay (days): 4 Anticipated DC Destination: Home, Self Care, Home Health Service Home Safety Plan: The patient will be provided with the development of a Home Safety Plan for return to a home or home-like environment and and to ensure safety post discharge. - Plan to Avoid Complications Barriers to Attaining Goals: Weakness, Pain Control, Medical Limitation ( depression and anxiety) Plan to Avoid Complications: The patient cannot receive this care in a lesser intensive setting such as Longterm or Outpatient Therapy due to the patient requiring the following : This patient requires medical supervision and 24 hour rehabilitation nursing monitoring of her pain level with adjustment in pain medications in this regard to avoid oversedation while providing adequate pain relief. She requires a multidisciplinary approach with PT and OT with medical supervision.
--- NOTE | 2017-09-30 11:15 | IRU Progress Note ---
- Subjective/Serverity of Illness Date: 09/30/17 Ms. Alma Angulo was reevaluated in her room and inpatient rehabilitation. She continues to have discomfort in the right knee although it is much less puffy and no longer red. She has reasonably good range of motion. The patient is able to bear weight on it and walk with a front-wheeled walker. However she is unable to safely perform stair climbing per therapy. She does have stairs at home. The patient this morning is quite anxious and indicates that she did not receive her doxepin for 5 days. However she is only been here since September 27. She states that because she did not receive her doxepin she has had a spiraling downward course with regard to her depression. She is on 3 mg (not 30 mg) at bedtime daily. Her did bring in her own dose of doxepin and she did receive this last night. In addition she has received her temazepam nightly. Patient states that she is going home today. She is going to "check myself out. " I indicated to her that we did not think it was safe for her to return home at this time with regard to therapy. I also discussed the case with her daughter by phone who agrees that it is not the best for her to go home today. We will discuss more at team meeting today. Exam Vital Signs: Temperature 98.0 F 09/30/17 07:24 Pulse Rate 77 09/30/17 07:24 Respiratory Rate 16 09/30/17 07:24 Blood Pressure 159/66 H 09/30/17 07:24 Pulse Oximetry 94 09/30/17 07:24 Height/Weight/BMI: Height 1.6 m Weight 75.9 kg Body Mass Index 29.6 - Constitutional Present: mild distress (anxious ), well nourished, well developed. Absent: cooperative (require significant motivation from occupational therapy to participate.) - Routine HEENT Exam Eye: Present: EOMI ENT: Present: mucous membranes moist, dentition normal - Routine Respiratory Exam Present: CTA bilaterally. Absent: wheezes - Routine Cardiovascular Exam Present: RRR, S1, S2. Absent: murmur - Routine Abdominal Exam Present: soft, normoactive bowel sounds, non distended. Absent: tenderness - Routine Extremities Exam Present: normal capillary refill Comments: Patient's right knee was inspected and palpated. It remains slightly puffy. However I do not detect an effusion. In addition there is no redness. She has good range of motion. - Routine Skin Exam Present: dry, warm - Routine Neurological Exam Present: alert, oriented X3, CN II-XII intact - Routine Psychiatric Exam Present: depressed, anxious. Absent: cooperative, good insight, good judgment Results IRU - Labs Labs: Have reviewed chart dated including vital signs, laboratory and other providers notes. IRU A/P (1) Right knee pain Qualifiers: Chronicity: acute Qualified Code(s): M25.561 - Pain in right knee Current visit: Yes Status: Acute The knee pain appears to be improved. Exam shows slight puffiness but improved from yesterday. Good range of motion is noted. Unfortunately the patient requires motivation to participate in therapy and is unable to climb stairs safely. She has stairs at home. We recommend that she stay another 3-4 days for improvement in her functional ability. Patient refuses. Have discussed with her daughter. We will discuss more with the patient at team meeting today with present and daughter present by phone. (2) Debilitated patient Current visit: Yes Status: Acute (3) Depression Qualifiers: Depression Type: major depressive disorder Major depression recurrence: recurrent Active/Remission status: currently active Major depression episode severity: moderate Qualified Code(s): F33.1 - Major depressive disorder, recurrent, moderate Current visit: Yes Status: Chronic Patient states that she has not received her 3 mg (not 30 mg) of doxepin for the last 5 days and for this reason has worsening depression. However she has been her only since September 27 and she did receive last night. From our perspective the most she may have missed would have been 2 nights on the and 28 of September. DVT Prophylaxis: SCD's, Lovenox Resuscitation Status: Do Not Intubate - Course Hospital Course: Jono Archer MD: 09/30/17 11:17 Right knee pain improved. Patient is anxious. She states that she will check herself out this afternoon even though she requires more therapy. - Interventions to Obtain Goals PT Treatment Plan: Balance/Proprioception, Functional Activities, Gait Training , Patient/Family Education, Therapeutic Exercise OT Treatment Plan: ADL (Basic Care), Balance Training, IADL, Pt./Family Education, Ther. Exercise for ADL Goals Progress/Modifications: I discussed the case with the patient and her daughter (daughter by phone today) . The patient is adamant that she will go home this afternoon. We will discuss the case further at team meeting with present in person and daughter present by phone.
--- NOTE | 2017-09-30 14:14 | IRU Team Meeting ---
IRU Team Meeting - Nursing Bladder Assistive Devices Utilized:: Absorbent Pad Bladder Management Level of Assist: Modified Independent Bowel Assistive Devices Utilized:: Medication, Absorbent Pad Bowel Management Level of Assist: Modified Independent Vital Signs: Vital Signs - 24 hr 09/29/17 16:00 09/29/17 19:20 09/30/17 07:24 Temperature 98.4 F 98.3 F 98.0 F Pulse Rate 73 79 77 Respiratory Rate 18 12 16 Blood Pressure 151/74 H 153/71 H 159/66 H Pulse Oximetry 95 95 94 Current Medications: Amlodipine Besylate (Norvasc) 5 mg PO Q12HR [facility] Last Admin: 09/30/17 08:14 Dose: 5 mg Enoxaparin Sodium (Lovenox) 40 mg SQ DAILY [facility] Last Admin: 09/30/17 08:14 Dose: 40 mg Fluoxetine HCl (Prozac) 40 mg PO DAILY [facility] Last Admin: 09/30/17 08:15 Dose: 40 mg Fluticasone Propionate (Flonase) 2 spray EA NOSTRIL DAILY [facility] Last Admin: 09/30/17 08:15 Dose: 2 spray Lactulose (Lactulose) 20 gm PO TID PRN PRN Reason: Constipation --Pom--Doxepin Concentrate Liq 10 Mg/Ml 0 each PO HS [facility] Last Admin: 09/29/17 20:06 Dose: Not Given Ondansetron HCl (Zofran Odt Tablet) 4 mg PO Q6H PRN PRN Reason: Nausea &/or vomiting Last Admin: 09/30/17 08:14 Dose: 4 mg Oxycodone/Acetaminophen (Percocet 5/325) 1 - 2 tab PO Q4H PRN PRN Reason: Pain Last Admin: 09/30/17 13:56 Dose: 1 tab Pantoprazole Sodium (Protonix Tab) 40 mg PO ACB [facility] Last Admin: 09/30/17 06:23 Dose: 40 mg Polyethylene Glycol (Miralax) 17 gm PO DAILY [facility] Last Admin: 09/30/17 08:16 Dose: 17 gm Pramipexole Dihydrochloride (Mirapex) 0.25 mg PO HS [facility] Last Admin: 09/29/17 20:04 Dose: 0.25 mg Sodium Chloride (Iv Flush) 10 - 80 ml IVF PRN PRN PRN Reason: Flushing Temazepam (Restoril) 30 mg PO HS [facility] Trazodone HCl (Desyrel) 100 mg PO HS [facility] Last Admin: 09/29/17 20:06 Dose: 100 mg Current Medical Issues: Rheumatoid arthritis with fibromyalgia, depression, anxiety, pain in right knee after fall Comments: I certify that I personally led the interdisciplinary team meeting and agree with comments, barriers and goals indicated. Team meeting was held in the patient's room with the patient and the following family members present: present in person; daughter Kim present via speakerphone Ms. Alma Angulo continues with pain in the right knee although there is improvement. She also complains of worsening depression with some anxiety. Appetite is reasonable although she states she has some nausea which she attributes to the depression. - Physical Therapy Bed, Chair, Wheelchair Transfer Assist: Modified Independent Ambulation Ability: Stand By Assist/Supervision Ambulation Distance: 180 Wheelchair Propulsion Ability: Maximal Assistance Wheelchair Propulsion Distance: 77 Stair Climbing Ability: Stand By Assist/Supervision Number of Steps Climbed: 14 Car Transfer Ability: Stand By Assist/Supervision Comments: She is able to walk with a front-wheeled walker with supervision. She was able to climb 14 steps to standby assistance. - Occupational Therapy Eating Ability: Independent Grooming Ability: Stand By Assist/Supervision Bathing Ability: Stand By Assist/Supervision Upper Body Dressing Ability: Stand By Assist/Supervision Lower Body Dressing Ability: Minimal Assistance Tub Transfer Assist: Contact Guard Assistance Toileting Assist: Stand By Assist/Supervision Toilet Transfer Assist: Stand By Assist/Supervision Comments: She has low degree of motivation. She insists on leaving today. Patient does require additional training with regard to ADLs. - Goals Physical Therapy Goals: 09/30/14. 1.) Stand-by for 2 steps with handrail. 2.) Walking with four-wheeled walker with modified indpendence. Occupational Therapy Goals: OT goals 09/30/17: 1.) Lower body dressing with modified independence. 2.) Toileting with modified independence. 3.) Light meal prep with modified independence. - Barriers to Discharge Barriers to Attaining Goals: Pain Control, Other (anxiety: Medications are provided in this regard.) - Care Plan Anticipated Length of Stay (days): 0 Anticipated DC Destination: Home, Self Care, Home Health Service I have led this team conference and agree with the plan. Interventions/Goals: Team recommends continuing working with the patient a few more days to improve ADLs as well as transfers and ambulation. The patient is adamant that she wants to go home today. Family training will occur this afternoon. who is present with the patient agrees to take her home and states he feels comfortable with that.
--- NOTE | 2017-09-30 15:23 | Discharge Summary ---
Discharge Information Date of admission: 09/28/17 21:20 Anticipated date of discharge: 09/30/17 Attending Physician: Jono Archer MD Primary care physician: Kate Sharp Consults: 09/28/17 22:01 Case Management Consult [CONS] Routine Reason For Exam: 09/28/17 22:28 Physician Consult [CONS] Routine Consulting Provider: China Jones Reason For Exam: medical management Ordering Provider has Notified Business Development Officer: No - Discharge Diagnosis (1) Right knee pain Status: Acute (2) Debilitated patient Status: Acute (3) Depression Status: Chronic Problems Reviewed?: No 1. Right knee pain secondary to fall and contusion 2. Rheumatoid arthritis 3. Fibromyalgia 4. Major Depression and anxiety - Laboratory Labs: 09/29/17 04:29 09/29/17 04:29 History of Present Illness HPI: Ms. Alma Angulo had fallen at home and was admitted to [facility] overnight a couple of days prior to the current admission. She then was sent home with home health assistance but before they could see her, the patient was sitting on the side of her bed in the middle the night on 09/27/2017. She lost her balance while reaching forward and fell to the floor. Her who sleeps in a separate room heard her fall and evaluated her. She was incoherent, confused and lethargic. EMS was called and she was brought to the emergency department at [facility]. She was admitted as an outpatient observation. Her sensorium improved. She complained of pain in the right knee. Radiographs of the right knee done on acute care were negative. She does have history of previous total knee replacement but no change in the prosthesis was identified. Because of the fall and knee injury, she sustained multiple functional deficits and was considered a good candidate for inpatient rehabilitation. In addition we anticipated adjustment of her pain medications in view of the acute process. She does have history of fibromyalgia and rheumatoid arthritis and is on chronic Percocet. Hospital Course This is a general summary of the patient's hospital course. For more details refer to the complete medical record. The patient was admitted to acute inpatient rehabilitation on 09/29/2017. She was seen by physical therapy and occupational therapy. I contacted ENMA Polanco at Dr. Tim Coker office who manages her pain medications. The patient requested Percocet 5/325 one or 2 every 4 hours as needed for pain. She was followed on rehabilitation by Dr. Archer as well as the hospitalist team. Initially the right knee appeared to be swollen and was even a bit red. However the swelling subsided and the redness resolved. She had reasonably good range of motion in the right knee. Ice pack was utilized. Her white count was normal at 4800, hemoglobin 11.3 and 31% neutrophils and 46% lymphocytes. (Patient reports Dr. Nelson is following her for some type of white count abnormality). Chemistries were unremarkable with BUN 5 and creatinine 0.7. The following levels of functional competence are to be considered preliminary information. The reader is encouraged to refer to actual therapy notes and reports for specific details. The patient was followed by physical therapy while on acute inpatient rehabilitation. At the conclusion of her stay, the following functional competencies were identified: She was able to transfer at modified independent level with a front-wheeled walker. Toilet transfer was with modified independence and car transfers were with standby assistance to supervision. She was able to ambulate over 200 feet with standby assistance with a front-wheeled walker. She was able to climb 12 steps with standby assistance. The patient was followed by occupational therapy while on acute inpatient rehabilitation. At the conclusion of her stay, the following functional competencies were identified: Bathing was with standby assistance. Upper body dressing was modified independent lower body dressing was with minimal assistance. Therapy felt as though they could improve her ADLs as well as her transfers and ambulation with a couple more days of therapy. However the patient was adamant that she be dismissed today. She says that her depression is worse and that she needs to get home into her home environment. Again our team recommendation was to keep her 2-3 more days to work on ADLs as well as transfers and ambulation. The patient's was present during our team meeting and did agree to some family training. He agreed to take her home today. Daughter was present at the team meeting by speaker phone and questions were addressed. We did not provide any new prescriptions for pain medications at the time of dismissal. I asked her to check with Dr. Coker office if she needed additional pain medications. She was dismissed in stable condition on 09/30/2017. She will return her home with home health assistance. Hospital course: 09/29/[address] Archer reviewed. Pt already showing signs of functional improvement. Pain medications per attending. Change Prozac to 40 mg daily per pt request. Add Flonase to help with allergic rhinitis. Zofran PRN nausea. Continue home meds for HTN, RA, chronic pain. CPAP + O2 HS. Labs on admission to IRU reviewed - mild normocytic anemia, eosinophilia. BMP stable. Time spent with patient: greater than 35 minutes Resuscitation Status: Do Not Intubate Discharge Plan - Med Rec/Dispo Referrals/Follow Up: Kate Sharp [Primary Care Provider] - (Dr. Flory Sharp on 10/07/17 at 3:00 pm for Hosp. follow-up. . [facility] stated that patient has an Appt. with Dr. Evans (Neurology) on at 3:15 pm and that patient would have time to get to this appt. after her PCP appt.) Prescriptions: Continue Losartan [Cozaar] 50 mg PO DAILY Lactulose Bulk Oral Liq [Enulose] 20 g PO TID PRN PRN Reason: Prn Orders FLUoxetine [Prozac] 20 mg PO BID Oxycodone/Apap 10/325 [Percocet 10/325] 1 tab PO Q4H PRN PRN Reason: Prn Orders Amlodipine Besylate [Norvasc] 5 tab PO BID Pantoprazole Sodium [Protonix] 40 mg PO DAILY PEG 3350 17gm PACKET [Miralax] 17 gm PO DAILY Ondansetron [Zofran Odt] 1 tab PO Q6HR PRN #20 tab PRN Reason: Nausea Folic Acid [Folate] 1 tab PO DAILY Doxepin 0.3 ml PO HS Pramipexole Di-HCl [Mirapex] 0.25 mg PO HS trazodone 100 mg tablet 100 mg PO DAILY #30 tab Restoril (temazepam) 30 mg capsule 30 mg PO DAILY #30 cap Discontinued Enoxaparin [Lovenox] 40 mg SQ DAILY - Disposition [facility] - Dismissal Complete Discharge Instructions are:: Complete
--- NOTE | 2017-09-30 15:28 | Letter to Referring Physician ---
Dear Dr. Sharp, This is a brief note to bring you up-to-date on the status of Stella Angulo and her stay on the acute inpatient rehabilitation unit at [facility]. She had fallen at home and initially had been admitted to [facility] for outpatient observation. She was then sent home with home health assistance. Before home health could evaluate her, the patient fell again in middle of night when she was sitting on the side of her bed and reaching forward. Her found her confused and lethargic. EMS was called and she was brought to [facility]. At that location she was admitted to outpatient observation on 09/27/2017. Radiographs of the right knee which was injured in the fall was negative for any acute process. She does have history of prior total right knee replacement. She has sustained multiple functional deficits as a result of the fall and for this reason was admitted to [facility] acute inpatient rehabilitation for further treatment on September 28, 2017. While on inpatient rehabilitation, this patient was seen by occupational therapy and physical therapy and improved overall in their functional ability. I also called and discussed her case with ENMA Polanco with Dr. Tim Coker regarding pain management. Please see a copy of the history and physical examination as well as discharge summary faxed separately for further details. Rehabilitation team recommended that she stay a few more days to improve her independence with ADLs as well as transfers and ambulation. However the patient was adamant that her depression was getting worse and that she be dismissed to her home. We clearly communicated to the patient, her and her daughter Kim that she would benefit from continuing acute inpatient rehabilitation for at least 2-3 more days. She declined this and was therefore dismissed to her home on 09/30/2017 with home health assistance. I did not prescribe any additional pain medications at the time of dismissal and asked her to work with Dr. Coker and ENMA Polanco in this regard. She was specifically advised not to take any narcotic pain medication within 4 hours of her bedtime sleep aids (trazodone, doxepin, Restoril). Thank you for allowing us to be involved in this nice patient's care. Please contact me directly should you have any questions regarding their stay on the inpatient rehabilitation unit. Sincerely, Jono Archer M.D.
[2017-09-30] MEDS ORDERED: TEMAZEPAM 15 MG CAPSULE PO SCH (21:00)
== END 2017-09-30 16:25 | disposition home health service (06) | DRG 556 ==
PROVIDERS: ADMIT Internal Medicine; ATTEND Internal Medicine